=== PATIENT | female | born 1960 | race Caucasian/White ===

== ENCOUNTER 2017-04-02 10:38 | Day surgery (SDC) | payer MEDICARE, MEDICAID ==
[~2017-04-02] VITALS: Ht 165.1 cm; Wt 99.8 kg
[~2017-04-02 10:38] MED LIST: ALBUTEROL-200 PUFFS/ IH; ALBUTEROL2.5 MG/NEB IN; AMARYL1 MG PO; CEFDINIR300 M1 PO; CELEXA40 MG PO; DICLOFENAC 50MG50 MG PO; DIFLUCAN100 M1 PO; DULOXETINE60 MG PO; ETODOLAC400 MG PO; FAMOTIDINE 20MG20 MG PO; GABAPENTIN300 MG PO; IMDUR ER30 MG PO; LANTUS INS100 UNITS/ SC; LEVOTHYROXIN0.075 M1 PO; LEVOTHYROXINE0.05 M2 PO; LISINOPRIL HCTZ1 TAB PO; LISINOPRIL/HCTZ1 TA3 PO; LORATADINE 10MG10 M1 PO; LYRICA75 MG PO; MECLIZINE HCL25 M1 PO; MELOXICAM7.5 MG PO; METOPROLOL SUCC50 M1 PO; METOPROLOL50 MG PO; MOBIC15 MG PO; NICOTINE PATCH;21 MG TD; OMEPRAZOLE20 MG PO; OMEPRAZOLE40 MG PO; PHENERGAN 25MG.25 M1 PO; PRAVASTATIN 40M40 MG PO; PRAVASTATIN20 MG PO; PROAIR HFA0.09 MG/AC IH; TIZANIDINE HCL 44 MG NG; TRAMADOL 50MG T50 M1 PO; VIIBRYD20 MG PO; XANAX 0.5MG TA0.5 MG PO; XANAX 1MG TABLET1 MG PO; ZOFRAN4 MG PO; ZYRTEC10 M3 PO; Zithromax500 MG PO
--- NOTE | 2017-04-02 10:58 | Emergency Room Report ---
History of Present Illness Time Seen by 105Sung Presenting Problem in Triage Pt arrived:Walked Presenting Problem:PT STATES THAT SHE WAS EATING TENDERLOIN LAST NIGHT AROUND 2129 AND GOT A PIECE LODGED IN HER CHEST. 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 N Clinical Suspician of Infection? N Mental Status: 1 - Regular (Normal Baseline) Sepsis Risk:Low Sepsis Risk Have you (or family members/close friends) recently traveled outside the [place]? N If Yes, where/when: Have you had exposure to infectious disease within the past month? N TB? Other? Specify: Patient states that at 9:30 PM last night that she ate steak and it got stuck in her throat states she has a moderate foriegn body sensation no radiation she states she this before and had to have the obstruction removed, does not remember the gastrointestinal doctor who did it. He denies any other pain or problems. No fevers or chills no nausea or vomiting she states that she had to sleep with a rag around her mouth last night because she was continually drooling at night. States she still cannot swallow her saliva. Denies any abdominal pain ALLERGIES Coded Allergies: No Known Allergies (11/08/16) Home Medications Active Scripts Azithromycin (Zithromax) 500 MG PO DAILY #3 TAB Prov: 08/24/16 Cefdinir 300 MG PO BID #14 CAP Prov: 08/24/16 Fluconazole (Diflucan) 100 MG PO DAILY #7 TAB Prov: 08/24/16 Albuterol Sulfate (Proair Hfa) 2 PUFFS IH Q6HP PRN SHORTNESS OF BREATH #1 INH Prov: 08/24/16 Reported Medications DULOXETINE HCL (Duloxetine) 60 MG PO BID Isosorbide Mononitrate (Imdur Er) 30 MG PO QHS Metoprolol Tartrate (Metoprolol) 50 MG PO BID Levothyroxine Sodium (Levothyroxine 0.075MG) 100 MCG PO DAILY Gabapentin (Gabapentin 300MG) 600 MG PO TID Omeprazole (Omeprazole 40MG) 40 MG PO DAILY #30 LISINOPRIL/HYDROCHLOROTHIAZIDE (Lisinopril-Hctz 20-25 MG Tab) 0.5 TAB PO DAILY Loratadine (Loratadine 10MG Tablet) 10 MG PO DAILY Meloxicam (Meloxicam 7.5MG) 15 MG PO BID TIZANIDINE HCL (Tizanidine Hcl 4 Mg Tablet) 4 MG NG BID Alprazolam (Xanax 1MG) 1 MG PO TID PRAVASTATIN SODIUM (Pravastatin Sodium) 40 MG PO QHS Insulin Glargine (Lantus Insulin Vial) 30 UNITS SC DAILY History Medical History General CAD? Yes Angina: Yes ID: No Hypertension? Yes Hyperlipidemia? Yes CHF? No DVT? No PE? No COPD? Yes Asthma? Yes Anemia? No GERD? Yes Gastric ulcers? No GI Bleed? No Hernia? Yes Thyroid Problems? No Hypothyroidism? Yes CVA? No Seizures? No Diabetes? Yes Insulin Dependent: Yes Insulin Pump: No Home FSBS? Yes Renal Insuffiency? No End Stage Renal Disease? No UTI? No Stones? No GB Disease: Yes Nephritic Syndrome? No Asplenia? No Hepatitis? No Sickle Cell Disease? No Arthritis? Yes Migraines? No Cataracts? No Glaucoma? No MRSA? No HIV? No TB? No Anxiety? Yes Depression? Yes Cancer? No More? 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 Eyes: conjunctiva/corneas clear ENT: Mucous membranes moist. throat is unremarkable pt is actively spitting up mucus intermittantly Neck: No jugular venous distention. Cardiac: regular rate and rhythm Lungs: Clear to auscultation bilaterally Abdomen: Nontender, Nondistended, positive bowel sounds, no rebound : No CVA tenderness Extremities: no edema Musculoskeletal: No chest wall tenderness Skin: No rashes or lesions to exposed skin. Neurologic: Alert. No gross focal deficits Psychiatric: Normal affect (Sharif GOODMAN, Ruben) General Appearance normal appearance Respiratory Status No: respiratory distress. Cardiovascular normal exam Neurologic alert Medical Decision Making LABS/Meds/Orders Pt receiving controlled substance in ED? No Comment 1117am call out to surgery. pt still not able to swallow. 1125 anthony Anand, he states Dr. Hodge has the egd room today, and to call Naveen GOODMAN at outpatient, anthony staff 1202 pt has some inflammation r ear, complains of r ear pain states pmd usually gives antibiotics for Results/Orders Laboratory Tests 04/02/17 1048: Sodium 142, Potassium 3.6, Chloride 106, Carbon Dioxide 25, BUN 17, Creatinine 1.0, Estimated Creat Clear 95, Estimated GFR (MDRD) 57 L, Glucose 161 H, Calcium 9.3, Total Bilirubin 0.8, AST 32, ALT 41, Alkaline Phosphatase 76, Total Protein 7.8, Albumin 4.1, Globulin 3.7 H, Albumin/Globulin Ratio 1.1, WBC 10.8, RBC 4.98, Hgb 15.1, Hct 45.5, MCV 91.5, RDW 13.3, Plt Count 283, MPV 8.7, Gran % 55.3, Gran # 6.0, Lymphocytes % 34.4, Monocytes % 6.6, Eosinophils % 3.1, Basophils % 0.5, Lymphocytes # 3.7, Monocytes # 0.7, Eosinophils # 0.3, Basophils # 0.1, PUBS MCHC 33.1, MCH 30.3 Current Medication Orders Sig/Jesse Start time Last Medication Dose Route Stop Time Status Admin Ondansetron HCl 4 MG ONCE ONE 04/02 1130 DC 04/02 IV 04/02 1131 1123 Ondansetron HCl 0 .STK-MED ONE 04/02 1122 DC .ROUTE Glucagon 1 MG ONCE ONE 04/02 1100 DC 04/02 IV 04/02 1101 1100 Nitroglycerin 0.4 MG ONCE ONE 04/02 1100 DC 04/02 SL 04/02 1101 1100 Sodium Chloride 1,000 ML .Q1H1M 04/02 1100 DC 04/02 IV 04/02 1200 1059 Sodium Chloride 10 ML PRN PRN 04/02 1100 AC IV 04/03 1054 Glucagon 0 .STK-MED ONE 04/02 1057 DC .ROUTE Nitroglycerin 0 .STK-MED ONE 04/02 1057 DC SL Sodium Chloride 1,000 ML .STK-MED ONE 04/02 105 DC IV Orders Procedure Date/time Status CBC WITH AUTO DIFF 04/02 1057 Complete CHEM 12 PROFILE 04/02 105 Complete Departure Departure Time of Disposition 1201 Disposition Still a Patient Clinical Impression Primary Impression: Food impaction of esophagus Condition STABLE Prescriptions Current Visit Scripts Amoxicillin (Amoxicillin 500MG) 500 MG PO TID #30 CAP ED Critical Care Critical Care No at 1204
[2017-04-02 11:15] LABS: LYMPH # 3.7 K/mm3 (0.7-4.5); LYMPH % 34.4 % (10-50.0)
[2017-04-02 11:18] LABS: HEMOGLOBIN 15.1 g/dL (12.2-16.2)
--- OUTSIDE RECORDS SUMMARY | 2017-04-02 11:22 | External Medical Summary Rpt ---
Author Author [facility] Organization [facility] Address Unknown Phone Unavailable Care Team Providers Care Shipping Manager Name Role Phone Ryann HELMS PCP [phone] Encounter [facility] [id number] Date(s): 02/21/17 - 02/23/17 [facility] [address] [place] [id number]- [phone] Discharge Disposition: OP Self Care or Home Attending Physician: LUDMILA MATTSON MD-CAR Admitting Physician: LUDMILA MATTSON MD-CAR Referring Physician: LUDMILA MATTSON MD-CAR Reason for Visit ABNORMAL RESULT OF OTHER CARDIOVASCULAR FUNCTION STUDY Vital Signs Most recent 1 2 3 to oldest [Reference Range]: Temperature Temporal artery Source scanning (02/23/17 10:06 AM) Temperature Fahrenheit Mode (02/23/17 10:06 AM) Temperature, 96.7 Deg F Fahrenheit *LOW*(02/23/17 [96.8-99.7 10:06 AM) Deg F] Clinical 35.9 Deg C Temperature, (02/23/17 10:06 C AM) Peripheral 70 bpm (02/23/17 Pulse Rate 10:06 AM) [60-100 bpm] Heart Rate 66 bpm 70 bpm 62 bpm Monitored (02/23/17 2:00 PM) (02/23/17 1:45 PM) (02/23/17 1:30 PM) [60-100 bpm] Respiratory 17 Breaths/Min 27 Breaths/Min 18 Breaths/Min Rate [14-20 (02/23/17 2:00 PM) *HI* (02/23/17 1:30 PM) Breaths/Min] (02/23/17 1:45 PM) Blood 130/68 mmHg 125/66 mmHg 130/65 mmHg Pressure (02/23/17 2:00 PM) (02/23/17 1:45 PM) (02/23/17 1:30 PM) [90-140/60-9 0 mmHg] Mean 89 mmHg 86 mmHg 87 mmHg Arterial (02/23/17 2:00 PM) (02/23/17 1:45 PM) (02/23/17 1:30 PM) Pressure (MAP) Mean 93 90 89 Arterial (02/23/17 2:00 PM) (02/23/17 1:45 PM) (02/23/17 1:30 PM) Pressure (MAP)-BMDI Systolic 127 mmHg (02/23/17 Blood 10:06 AM) Pressure, RUE [90-140 mmHg] Diastolic 71 mmHg Blood *LOW*(02/23/17 Pressure, 10:06 AM) RUE [90-140 mmHg] Systolic 127 mmHg (02/23/17 Blood 10:06 AM) Pressure, LUE [90-140 mmHg] Diastolic 62 mmHg Blood *LOW*(02/23/17 Pressure, 10:06 AM) LUE [90-140 mmHg] Oxygen 97 % 95 % 95 % Saturation (02/23/17 2:00 PM) (02/23/17 1:45 PM) (02/23/17 1:30 PM) [94-100 %] Height Stated (02/23/17 Source 10:06 AM) Height Entry [place] (02/23/17 Format 10:06 AM) Height/Lengt 5 ft (02/23/17 h, NIGERIAN 10:06 AM) (ft) Height/Lengt 5 Inch (02/23/17 h NIGERIAN 10:06 AM) CLINICALHEIG 165.1 cm (02/23/17 HT 10:06 AM) Weight Standing scale Source (02/23/17 10:06 AM) Weight Entry [place] (02/23/17 Format 10:06 AM) Weight 222 lb (02/23/17 Japanese lb 10:06 AM) CLINICALWEIG 100.91 kg HT (02/23/17 10:06 AM) Body Surface 2.07 m2 (02/23/17 Area (BSA) 10:06 AM) Body Mass 37 kg/m2 Index *HI*(02/23/17 [19.0-24.0 10:06 AM) kg/m2] [place] Body 57 kg (02/23/17 Weight 10:06 AM) Problem List Condition Effective Status Health Informant Dates Status Arthritis(Co Active patient nfirmed) Asthma(Confi Active patient rmed) Concussion(C Active patient onfirmed) COPD(Confirm Active patient ed) Diabetes Active patient mellitus type II(Confirmed ) Hemorrhoids( Active patient Confirmed) Hypertension Active patient (Confirmed) Impaired Active patient vision(Confi rmed) Pneumonia(Co Active patient nfirmed) Sinusitis(Co Active patient nfirmed) Sleep Active patient apnea(Confir med) Syncope(Conf Active patient irmed) Thyroid Active patient disease(Conf irmed) Allergies, Adverse Reactions, Alerts No Known Allergies Medications albuterol-ipratropium (albuterol-ipratropium 2.5 mg-0.5 mg/3 mL inhalation solution)3 Milliliter(s) Nebulized Inhalation Four Times A Day as needed as needed for shortness of breath or wheezing. ALPRAZolam (Xanax) 1 Milligram(s) Oral Three Times A Day. aspirin 81 Milligram(s) Oral At Bedtime. fenofibrate 145 Milligram(s) Oral Every Day. furosemide 40 Milligram(s) Oral Every Day. gabapentin 600 Milligram(s) Oral Three Times A Day. insulin glargine (Lantus 100 units/mL subcutaneous solution)30 Unit(s) SubCutaneous At Bedtime. isosorbide mononitrate (isosorbide mononitrate 60 mg oral tablet, extended release)1 Tablet(s) Oral Every Morning. levothyroxine 100 Microgram(s) Oral Every Day. loratadine 10 Milligram(s) Oral Every Day. metoprolol (Metoprolol Succinate ER) 50 Milligram(s) Oral Every Day. naproxen 500 Milligram(s) Oral Two Times A Day. nitroglycerin (Nitrostat 0.4 mg sublingual tablet)1 Tablet(s) SubLINgual every 5 minutes as needed as needed for chest pain. omeprazole 40 Milligram(s) Oral Every Day. PRAVAstatin 40 Milligram(s) Oral At Bedtime. tiZANidine 4 Milligram(s) Oral Three Times A Day. Results GENERAL CHEMISTRY Most recent 1 to oldest [Reference Range]: eGFR 62 mL/min/1.73m2 [>=60 (02/23/17 10:08 AM) mL/min/1.73m 2] eGFR 51 mL/min/1.73m2 NonAfrican *LOW* [>=60 (02/23/17 10:08 AM) mL/min/1.73m 2] Sodium POC 143 mmol/L [138-146 (02/23/17 10:08 AM) mmol/L] Potassium 3.9 mmol/L POC [3.5-4.9 (02/23/17 10:08 AM) mmol/L] Chloride POC 103 mmol/L [98-109 (02/23/17 10:08 AM) mmol/L] CO2 POC 26.0 mmol/L [24.0-29.0 (02/23/17 10:08 AM) mmol/L] Anion Gap 19.0 mmol/L POC (02/23/17 10:08 AM) [10.0-20.0 mmol/L] Glucose POC 130 mg/dL [70-105 *HI* mg/dL] (02/23/17 10:08 AM) BUN POC 19 mg/dL [8-26 mg/dL] (02/23/17 10:08 AM) Creatinine 1.1 mg/dL POC [0.6-1.3 (02/23/17 10:08 AM) mg/dL] Ca Ioniz POC 1.23 mmol/L [1.12-1.32 (02/23/17 10:08 AM) mmol/L] HEMATOLOGY Most recent 1 to oldest [Reference Range]: Platelet 282 K/uL Count (02/23/17 9:52 AM) [163-369 K/uL] Hematocrit 43.0 % POC (02/23/17 10:08 AM) [38.0-51.0 %] Hemoglobin 14.6 Gram/dL POC (02/23/17 10:08 AM) [12.0-17.0 Gram/dL] Immunizations No data available for this section Procedures Procedure Date Related Body Site Diagnosis hemorrhoidectomy Social History Social History Response Type Smoking Status Current every day smoker; Tobacco Use Within Last Twelve Months Cigarettes; Years of Tobacco Use 42; Packs/Tins Daily 1; Assessment and Plan No data available for this section Hospital Discharge Instructions Patient EducationAngiogram, Care After Conscious Sedation, Adult, Care After Radial Site Care
--- OUTSIDE RECORDS SUMMARY | 2017-04-02 11:22 | External Medical Summary Rpt ---
Author Author [facility] Organization [facility] Address Unknown Phone Unavailable Care Team Providers Care Mathematics Academic Chair Name Role Phone Ryann HELMS PCP [phone] [facility] [id number] Date(s): 02/21/17 - 02/23/17 [facility] [address] [place] [id number]- Discharge Disposition: OP Self Care or Home [...] Stated (02/23/17 Source 10:06 AM) Height Entry [place] (02/23/17 Format 10:06 AM) Height/Lengt 5 ft (02/23/17 h, TRIST[place]IAN 10:06 AM) (ft) Height/Lengt 5 Inch (02/23/17 h TRISTAN[place] 10:06 AM) CLINICALHEIG 165.1 cm (02/23/17 HT 10:06 AM) Weight Standing scale Source (02/23/17 10:06 AM) Weight Entry [place] (02/23/17 Format 10:06 AM) Weight 222 lb (02/23/17 Bulgarian lb 10:06 AM) CLINICALWEIG 100.91 kg HT (02/23/17 10:06 AM) Body Surface 2.07 m2 (02/23/17 Area (BSA) 10:06 AM) Body Mass 37 kg/m2 Index *HI*(02/23/17 [19.0-24.0 10:06 AM) kg/m2] [place] Body 57 kg (02/23/17 Weight 10:06 AM) [...]
--- OUTSIDE RECORDS SUMMARY | 2017-04-02 11:29 | External Medical Summary Rpt | CCD ---
Author Author , [facility] Organization [facility] Address Unknown Phone Care Team Providers Care Reservation Agent Name Role Phone AHMED ADN, AHMED ADN Unavailable Unavailable AHMED ADN, AHMED ADN Unavailable Unavailable ALLRAN JR JIL, ALLRAN Unavailable Unavailable JR JIL [facility], Unavailable Unavailable [facility] JULIUS CAR, Unavailable Unavailable JULIUS CAR LAURA HENDRICKSON MD, PSC, Unavailable Unavailable LAURA HENDRICKSON MD, PSC [facility], Unavailable Unavailable [facility], Unavailable Unavailable [facility] BEINEKE, BEINEKE Unavailable Unavailable BEINEKE KURT BEINEKE Unavailable Unavailable KURT SANTIAGO, BARBER Unavailable Unavailable NAYANA KOVACS Unavailable Unavailable [facility] Unavailable [facility]available [facility], [facility] ARGUETA, ARGUETA Unavailable Unavailable ARGUETA ALL, ARGUETA ALL Unavailable Unavailable [facility] Unavailable Unavailable HOSPITAL, [facility] HAMMOND CAR, HAMMOND Unavailable Unavailable CAR BUTROS JONNY, BUTROS Unavailable Unavailable JONNY BUX ANJ, BUX ANJ Unavailable Unavailable [facility] & Unavailable Unavailable [facility], [facility] & Unavailable Unavailable DUBILIER, [facility] DUBILIER GONSALES, GONSALES Unavailable Unavailable GONSALES JACK, GONSALES Unavailable Unavailable JACK [facility], Unavailable Unavailable [facility] HELMS, HELMS Unavailable Unavailable HELMS GUERRERO, HELMS GUERRERO Unavailable Unavailable HELMS GUERRERO, HELMS GUERRERO Unavailable Unavailable SHASHA, SHASHA Unavailable Unavailable SHASHA OMAR, Unavailable Unavailable SHASHA OMAR [facility] Unavailable Unavailable [facility], [facility] DAVINA LAYNE, Unavailable Unavailable DAVINA LAYNE, Unavailable Unavailable DAVINA CHAVEZ ZBIGNIEW, KATHY ZBIGNIEW Unavailable Unavailable [facility], [facility]available Unavailable [facility], Unavailable Unavailable [facility] JR RAQUEL LUNA, Unavailable Unavailable LUNA, JR DOBSONZ JESÚSY ENOCH, ELIOTPADMINIPeri Unavailable Unavailable ENOCH JASON, Unavailable Unavailable KENDALL JASON FOWLER, FOWLER Unavailable Unavailable JANETH CAMPBELL, Unavailable Unavailable FOWLER SHANNAN DE SOUZA, Unavailable Unavailable FOWLER [facility] Unavailable Unavailable INC, [facility] Unavailable Unavailable HOSPITAL P, [facility] P [facility], Unavailable Unavailable [facility] CHRISTY, CHRISTY Unavailable Unavailable GREGG, GREGG Unavailable Unavailable GREGG NAN, GREGG Unavailable Unavailable NAN LINDA JIL, LINDA Unavailable Unavailable JIL LINDA JIL, LINDA Unavailable Unavailable JIL EHSAN LAR, EHSAN Unavailable Unavailable [facility] Unavailable Unavailable IMAGING [facility], [facility] KERN CAR, KERN CAR Unavailable Unavailable KRIMM FERMIN, KRIMM FERMIN Unavailable Unavailable [facility]available [facility], [facility] Unavailable Unavailable [facility], [facility] & Unavailable Unavailable [facility] TINY CRI, TINY CRI Unavailable Unavailable SRINIVASAN KATIA, SRINIVASAN KATIA Unavailable Unavailable DALLAS EDGAR, DALLAS Unavailable Unavailable EDGAR [facility] Unavailable Unavailable ASSOCIAT, [facility] Unavailable Unavailable CARE [facility], [facility], [facility] Unavailable Unavailable [facility] Unavailable Unavailable [facility] [place] Un[facility] [place] [facility], Unavailable Unavailable [facility] YAIR GIAN, YAIR Unavailable Unavailable GIAN YAIR GIAN, YAIR Unavailable Unavailable [facility], Unavailable Unavailable [facility] Unavailable Unavailable HEALTH, [facility] Unavailable Unavailable URGENT TREAT, [facility] Unavailable [facility]available [facility] Unavailable [facility]available [facility] GUERRERO HELMS MD Unavailable Unavailable CONSULTING SERV, GUERRERO HELMS MD CONSULTING SERV GUERRERO HELMS MD Unavailable Unavailable CONSULTING SRVGUERRERO MD CONSULTING SRV JENKINS, JENKINS Unavailable Unavailable JAYLEEN CHR, JAYLEEN CHR Unavailable Unavailable SCIFRES, SCIFRES Unavailable Unavailable [facility], Unavailable Unavailable [facility] Unavailable Unavailable EQUIPME, [facility] Unavailable Unavailable [facility]QU[facility]ME, [facility] Unavailable Unavailable EMERGENCY PH[facility], [facility] Unavailable Unavailable EMERGENCY SERVI, [facility], Unavailable Unavailable [facility], [facility]available Unavailable [facility] Unavailable Unavailable [place], [facility] Unavailable Unavailable [facility] FARIAS RAY, FARIAS Unavailable Unavailable RAY BELÉN DAILEY Unavailable Unavailable ENOCH BELÉN DAILEY Unavailable Unavailable ENOCH GARCIA NIALL, RADHA Unavailable Unavailable NIALL [facility] Unavailable [facility]available [facility] Unavailable Unavailable [facility], [facility] Unavailable Unavailable INC [facility] Unavailable Unavailable INC CHAUNCEY MOY, Unavailable Unavailable CHAUNCEY MOY [facility] Unavailable Unavailable [facility] # Unavailable Unavailable [id number], [facility] # [id number] [facility], [facility] Unavailable Unavailable [facility], [facility] Unavailable Unavailable YEASAYER CECY, Unavailable Unavailable YEASAYER CECY CHRISTO MAT, CHRISTO MAT Unavailable Unavailable Purpose Continuity of Care Document - 07-18-2007 through 2016 Problems Code Diagnosis DOS Provider Status J449 CHRONIC 03-14-[address] [facility] OBSTRUCTIVE 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 UNS EQUIPME [id number] OTHER 03-09-2017 [facility]HMA INC E039 HYPOTHYROID 02-23-2017 [facility] UNSPECIFIED E119 TYPE 2 02-23-2017 [facility] DIABETES [facility] MELL[facility] WITHOUT COMPLICATIO NS E784 OTHER 02-23-2017 [facility] HYPERLIPIDE HOSPITAL NELL G4733 OBSTRUCTIVE 02-23-2017 [facility] SLEEP [facility] APNEA ADULT PEDIATRIC I10 ESSENTIAL 02-23-2017 [facility] HYPERTENSIO N [id number] ASHD NANWALEK 02-23-2017 [facility] W/UNS ANGINA PECTORIS J439 EMPHYSEMA 02-23-2017 [facility] UNSPECIFIED HOSPITAL M1990 UNSPECIFIED 02-23-2017 [facility] OSTEOARTHRI TIS UNSPECIFIED SITE M5136 OT 02-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 M545 LOW BACK 02-15-2017 [facility] PAIN [facility]THOP[facility]EDIC S PSC N9489 OTH COND 02-14-2017 [facility]FE [facility] GEN ORGN & INC MENSTRUAL CYCL R0602 SHORTNESS 02-14-2017 [facility] R072 PRECORDIAL 02-14-2017 [facility] PA[facility] INC R0789 OTHER CHEST 02-14-2017 [facility] IM[facility] ASS R102 PELVIC AND 02-14-2017 [facility] PERINEAL MEDICAL PAIN IMAGING ASS I2510 ASHD NANWALEK 02-08-2017 [facility] CORONARY LAR & SLEEP ARTERY W/O CONSU ANGINA PECTORIS I6523 OCCLUSION & 02-08-2017 [facility] STENOSIS LAR & SLEEP BILATERAL CONSU CAROTID ARTERIES J438 OTHER 02-08-2017 [facility] EMPHYSEMA LAR & SLEEP CONSU R2243 LOC 02-08-2017 [facility] SWELLING LAR & SLEEP MASS & LUMP CONSU LOWER LIMB BILATERAL A73504 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 GROUP W/O ABNORMAL FIND Z124 ENCOUNTER 02-07-2017 [facility] SCREENING MALIG NEOPLASM CERVIX R079 CHEST PAIN 02-06-2017 [facility] H15169 PAIN IN 01-29-2017 [facility] HELMS RIGHT LEG CONSULTING SRV L24615 PAIN IN 01-29-2017 [facility] HELMS LEFT LEG CONSULTING SRV 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 E7800 PURE 01-23-2017 [facility] HELMS HYPERCHOLES TEROLEMIA CONSULTING UNSPECIFIED SRV E1165 TYPE 2 10-31-2016 [facility]ES [facility] MELLITUS SOLUTIONS [place]YCEM IA M6009 INFECTIVE 10-31-2016 [facility] MYOSITIS HEALTH MULTIPLE SOLUTIONS SITES IN R311 BENIGN 10-31-2016 [facility] ESSENTIAL [facility] MICROSCOPIC SOLUTIONS HEMATURIA IN R3129 OTHER 10-31-2016 [facility] MICROSCOPIC HEALTH HEMATURIA SOLUTIONS IN R600 LOCALIZED 10-31-2016 [facility] EDEMA HEALTH SOLUTIONS IN J52611 OTHER 10-05-2016 [facility] MUSCLE HEALTH SPASM SOLUTIONS IN H2513 AGE-RELATED 09-14-2016 [facility] BILATERAL E018 OTH 08-31-2016 [facility] IODINE-DEFI HE[facility] C REL SOLUTIONS THYROID D/O IN & ALLIED CONDS E038 OTHER 08-31-2016 [facility] SPECIFIED HAI HYPOTHYROID HOLDINGS ISM E782 MIXED 08-31-2016 [facility] HYPERLIPIDE HEALTH NELL SOLUTIONS IN J180 BRONCHOPNEU 08-31-2016 [facility] UNSPECIFIED SOLUTIONS ORGANISM IN E1141 TYPE 2 08-28-2016 [facility] DIABETES HEALTH MELLITUS SOLUTIONS W/DIAB IN MONONEUROPA THY J189 PNEUMONIA 08-23-2016 [facility] UNSPECIFIED MEDICAL ORGANISM IMAGING ASS J90 PLEURAL 08-23-2016 [facility] EFFUSION MEDICAL NOT IMAGING ASS ELSEWHERE CLASSIFIED R918 OTHER 08-23-2016 [facility] NONSPECIFIC MEDICAL ABNORMAL IMAGING ASS FINDING OF LUNG FIELD J441 CHRONIC 08-22-2016 [facility] P DZ W/EXACERBAT ION Z720 TOBACCO USE 08-22-2016 [facility] P R0902 HYPOXEMIA 08-21-2016 [facility] J0140 ACUTE 08-19-2016 [facility]ANSINUS[facility]I [facility] INC UNSPECIFIED R05 COUGH 08-19-2016 [facility] R42 DIZZINESS 08-19-2016 [facility] AND MEDICAL GIDDINESS IMAGING ASS R531 WEAKNESS 08-19-2016 [facility] I9589 OTHER 07-31-2016 [facility] HYPOTENSION HEALTH SOLUTIONS IN I340 NONRHEUMATI 07-25-2016 [facility] INSUFFICIEN CY I471 SUPRAVENTRI 07-25-2016 [facility] L2081 ATOPIC 03-14-2016 [facility] NEURODERMAT [facility] ITIS URGENT TREAT L500 ALLERGIC 03-14-2016 [facility] URTICARIA [facility] URGENT TREAT L0889 OT SPEC 02-24-2016 [facility] INFECTIONS URGENT THE SKIN & TREAT SUBQ TISSUE M6240 CONTRACTURE 01-11-2016 [facility] OF MUSCLE HAI UNSPECIFIED HOLDINGS SITE A03952 SPONDYLOSIS 01-10-2016 LAURA HENDRICKSON, W/O , PSC MYELOPATH/R ADICULOPATH Y LUMB RGN M5126 OTH 01-10-2016 LISANDRO SERNA MD, PSC RAL DISC DISPLACEMEN T LUMBAR RGN M797 FIBROMYALGI 01-10-2016 Ryann SERNA MD, PSC Y92923 PAIN IN 12-13-2015 [facility] RIGHT KNEE HAI HOLDINGS I26942 PAIN IN 12-13-2015 [facility] LEFT KNEE HAI HOLDINGS M7981 NONTRAUMATI 12-07-2015 [facility]EM[facility] OF SOFT INC TISSUE M5022 OTH CERV 10-21-2015 [facility] DISC MEDICAL DISPLACEMEN IMAGING ASS T MID-CERVICA L REGION M5403 PANNICULITI 10-21-2015 [facility] S AFFCT [facility] HOS[facility] REGIONS INC NECK & BACK CT REGION M542 CERVICALGIA 10-21-2015 [facility] M533 SACROCOCCYG 08-31-2015 [facility] EAL MEDICAL DISORDERS IMAGING ASS NEC R1032 LEFT LOWER 08-31-2015 [facility] QUADRANT MEDICAL PAIN IMAGING ASS P04933 MUSCLE 08-19-2015 [place] SPASM OF [facility] BACK URGENT TREAT T1490 INJURY 08-19-2015 [place] UNSPECIFIED [facility] URGENT TREAT M791 MYALGIA 07-26-2015 LAURA HENDRICKSON MD, PSC J028 ACUTE 07-12-2015 [place] PHARYNGITIS [facility] DUE TO URGENT OTHER SPEC TREAT ORGANISMS J101 FLU D/T OTH 07-12-2015 [place] ID FLU [facility] VIRUS OTH URGENT RESP TREAT MANIFESTATI ONS J208 ACUTE 06-21-2015 [facility] BRONCHITIS [facility] DUE TO URGENT OTHER SPEC TREAT ORGANISMS R21 RASH AND 06-21-2015 [place] OTHER [facility] NONSPECIFIC URGENT SKIN TREAT ERUPTION F72195 ACUTE 04-08-2015 [place] SUPPURATIVE [facility] OM W/O URGENT RUPT EAR TREAT DRUM LT EAR H9202 OTALGIA 04-08-2015 [facility] LEFT EAR COUNTY URGENT TREAT J302 OTHER 04-08-2015 [facility] SEASONAL [facility] ALLERGIC URGENT RHINITIS TREAT K30 FUNCTIONAL 03-23-2015 [facility] DYSPEPSIA MOUNT [facility] K310 ACUTE 03-23-2015 [facility] DILATATION MOUNT OF STOMACH JOSÉ R140 ABDOMINAL 03-23-2015 [facility] GASEOUS R935 ABN FIND DX 03-23-2015 [facility] IMAG OTH MOUNT ABD REGIONS [facility] RETROPERITO NEUM 80346 SLOW 02-22-2015 [place] TRANSIT [facility] CONSTIPATIO URGENT N TREAT 46132 DIAB W/O 02-17-2015 [place] COMP TYPE [facility] II/UNS NOT URGENT STATED TREAT UNCNTRL 93879 GENERALIZED 02-17-2015 [facility] ANXIETY [facility] DISORDER URGENT TREAT 5609 UNSPECIFIED 02-17-2015 [facility] INTESTINAL [facility] URGENT OBSTRUCTION TREAT 4610 ACUTE 01-28-2015 [facility] MAXILLARY [facility] SINUSITIS URGENT TREAT 42062 ASTHMA, 01-28-2015 [facility] UNSPECIFIED INC , UNSPECIFIED STATUS 496 CHRONIC 01-28-2015 [facility] INC OBSTRUCTION NEC 7291 UNSPECIFIED 01-28-2015 [facility] MYALGIA [facility] AND URGENT MYOSITIS TREAT 7821 RASH AND 01-28-2015 [facility] OTHER [facility] NONSPECIFIC URGENT SKIN TREAT ERUPTION 5368 DYSPEPSIA&O 01-25-2015 [facility]IOLOGY DISORDERS FUNCTION STOMACH 15262 DIVERTICULO 01-25-2015 [facility] COLON JOSÉ 54499 EFFUSION OF 01-16-2015 [facility] ANKLE AND [facility] FOOT JOINT URGENT TREAT 35570 PAIN IN 01-16-2015 [facility] JOINT, [facility] SHOULDER URGENT REGION TREAT 83903 EXTRINSIC 12-31-2014 [facility] ASTHMA WITH COUNTY STATUS URGENT ASTHMATICUS TREAT 84129 ACUT 12-28-2014 [facility] SUPPRATV [facility] OTITIS URGENT MEDIA W/O TREAT SPONT RUP EARDRUM 462 ACUTE 12-28-2014 [facility] PHARYNGITIS [facility] URGENT TREAT 01088 ABDOMINAL 12-18-2014 [facility] PAIN, MEDICAL UNSPECIFIED IMAGING ASS SITE 4400 ATHEROSCLER 12-15-2014 [facility] OSIS OF [facility] AORTA URGENT TREAT 5589 OTH&UNSPEC 12-14-2014 [facility] NONINFECTIO MEM HOSP US INC GASTROENTER ITIS&COLITI S 64247 NAUSEA WITH 12-14-2014 [facility] VOMITING MEDICAL IMAGING ASS 67485 NAUSEA 12-14-2014 [facility] ALONE [facility] IM[facility] ASS 14124 ABDOMINAL 12-14-2014 [facility] PAIN OTHER MEDICAL SPECIFIED IMAGING ASS SITE 07706 DIAB W/O 11-26-2014 [facility] TYPE I STATES [JUV] NOT MEDICAL STATED SUPPLY UNCNTRL 04729 BENIGN 11-12-2014 [facility] PAROXYSMAL [facility] POSITIONAL URGENT VERTIGO TREAT 25820 ACUT PEPTC 11-12-2014 [facility] ULCR UNS [facility] SITE W/O URGENT HEMOR TREAT PERF/OBST 7881 DYSURIA 11-12-2014 [facility] U[facility]ENT [facility]AT 4660 ACUTE 10-24-2014 [facility] BRONCHITIS [facility] URGENT TREAT 20057 WHEEZING 10-24-2014 [facility] URGENT TREAT 45358 OTOGENIC 10-19-2014 [facility] PAIN [facility] URGENT TREAT 4011 ESSENTIAL 10-19-2014 [facility] HYPERTENSIO [facility] N, BENIGN URGENT TREAT 4619 ACUTE 10-19-2014 [facility] SINUSITIS, [facility] UNSPECIFIED URGENT TREAT 7862 COUGH 10-19-2014 [facility] U[facility]ENT TREAT 9953 ALLERGY 10-19-2014 [facility] NOT URGENT ELSEWHERE TREAT CLASSIFIED 57991 OBSTRUCTIVE 09-23-2014 [facility] [employer] [facility] SLEEP APNEA 2724 OTHER AND 09-21-2014 [facility] UNSPECIFIED [facility] URGENT HYPERLIPIDE TREAT NELL 4770 ALLERGIC 09-21-2014 [facility] RHINITIS [facility] DUE TO URGENT POLLEN TREAT 18638 ACUT PEPTC 09-21-2014 [facility] UNS COUNTY SITE W/HEM URGENT W/O MENTION TREAT OBST 2851 ACUTE 09-14-2014 [facility] POSTHEMORRH [facility] AGIC ANEMIA URGENT TREAT 19581 ACUTE 09-14-2014 [facility] GASTRITIS [facility] WITHOUT URGENT MENTION OF TREAT HEMORRHAGE 05986 LEUKOCYTOSI 09-05-2014 [facility] S PHYSICIANS UNSPECIFIED GROUP 03926 ATROPHIC 09-05-2014 [facility] GASTRITIS [facility] & WITHOUT DUBILIER MENTION OF HEMORRHAGE 34109 UNS 09-05-2014 [facility] GASTRITIS&G PHYSICIANS ASTRODUODIT GROUP IS W/O MENTION HEMORR 20329 DUODENITIS 09-05-2014 [facility] WITHOUT PHYSICIANS MENTION OF GROUP HEMORRHAGE 22293 OTHER 09-05-2014 [facility] SPECIFIED MEDICAL DISORDER OF IMAGING ASS INTESTINES 5718 OTHER 09-05-2014 [facility] CHRONIC MEDICAL NONALCOHOLI IMAGING ASS C LIVER DISEASE 46307 ABDOMINAL 09-05-2014 [facility] PAIN, MEDICAL EPIGASTRIC IMAGING ASS 65409 HELICOBACTE 09-04-2014 [facility] PYLORI [facility] P 83080 UNSPECIFIED 09-04-2014 [facility] ESOPHAGITIS HOSPITAL P 87125 ACUTE 09-04-2014 [facility] WITH HOSPITAL P HEMORRHAGE 5533 DIAPHRAGMAT 09-04-2014 [facility] W/[facility] P OBSTRUCTION /GANGREN 2449 UNSPECIFIED 09-02-2014 [facility] HYPOTHYROID [facility] CLI ISM 2722 MIXED 09-02-2014 [facility] HYPERLIPIDE PRIMARY NELL CARE CLI 98397 NONSPECIFIC 09-02-2014 [facility] ABNORMAL N EMERGENCY ELECTROCARD SERVI IOGRAM 67852 OBST 08-22-2014 [facility] CHRONIC N EMERGENCY BRONCHITIS PHYS W/ACUTE BRONCHITIS 80446 CHEST PAIN 08-22-2014 [facility] [place] UNSPECIFIED RADIOLOGY 4019 UNSPECIFIED 08-21-2014 [facility] ESSENTIAL PRIMARY HYPERTENSIO CARE CLI N 38881 CORONARY 08-05-2014 [facility] CORONARY ARTERY 18730 CIRCADIAN 07-31-2014 [facility] LOZANO MD SLEEP CONSULTING DISORDER SERV UNSPECIFIED 71650 GEN 07-23-2014 [facility] OSTEOARTHRO PRIMARY SIS CARE CLI INVOLVING MULTIPLE SITES 2720 PURE 07-06-2014 [facility] MANN MD TEROLEMIA CONSULTING SERV 7295 PAIN IN 07-06-2014 [facility] FARRELL MD TISSUES OF CONSULTING LIMB SRV 7823 EDEMA 07-06-2014 [facility] HELMS MD CONSULTING SRV 38358 SHORTNESS 07-06-2014 [facility] 31777 PRECORDIAL 07-06-2014 [facility] PAIN [facility] 2723 HYPERCHYLOM 06-30-2014 [facility] ICRONEMIA [facility] 7197 DIFFICULTY 06-30-2014 [place] [facility] WALKING [facility] 94903 PAINFUL 05-26-2014 [facility] PRIMARY CARE CLI 2689 UNSPECIFIED 12-22-2011 [facility], VITAMIN D DIRECTOR SPECIAL ED[facility]ATION [place] [address] OBESITY, 12-22-2011 [facility], UNSPECIFIED [facility] [place] [facility] 41015 COR 12-22-2011 [facility] ATHEROSLERO UNSPEC TYPE VESSEL [place]/PIERCE T 5693 HEMORRHAGE 11-10-2011 [facility] OF RECTUM AND ANUS 5990 URINARY 11-10-2011 [facility] TRACT INFECTION SITE NOT SPECIFIED 7873 FLATULENCE 11-10-2011 [facility] ERUCTATION AND GAS PAIN V6709 FOLLOW-UP 08-25-2011 [facility] EXAMINATION [facility] FOLLOWING ASSOCIAT OTHER SURGERY 51737 OTHER 08-24-2011 [facility] MALAISE AND FATIGUE 2469 UNSPECIFIED 08-19-2011 [facility] DISORDER OF THYROID 51603 DIAB 08-19-2011 [facility] W/NEURO MANIFESTS TYPE II/UNS NOT UNCNTRL 6826 CELLULITIS 08-19-2011 [facility] AND ABSCESS OF LEG EXCEPT FOOT 77426 AC LEANNE 08-16-2011 LIN[facility] JIL EMBO & THROMB UNSPEC DEEP VES LOWER EXT 24350 OTHER 08-16-2011 [facility] DISEASES OF RADIOLOGY LUNG NOT ASSOCIAT ELSEWHERE CLASSIFIED 7231 CERVICALGIA 08-16-2011 [facility], [facility] [place] [facility] 87245 UNSPECIFIED 08-11-2011 [facility] ARTHROPATHY SITE UNSPECIFIED 7802 SYNCOPE AND 08-01-2011 [facility] COLLAPSE [facility] 7804 DIZZINESS 08-01-2011 [facility] 7820 DISTURBANCE 08-01-2011 HELMS GUERRERO OF SKIN SENSATION 04463 OCCLUSION&S 07-19-2011 [facility] GUERRERO TENOS CAROTID ART W/O MENTION INFARCT 12679 OTHER 07-07-2011 [facility] DISEASES OF RADIOLOGY SPLEEN ASSOCIAT 5531 UMB HERNIA 07-07-2011 [facility] WITHOUT RADIOLOGY MENTION ASSOCIAT OBSTRUCTION /GANGRENE E8889 UNSPECIFIED 07-06-2011 [facility] FALL RADIOLOGY ASSOCIAT 25435 OBSTRUCTIVE 06-26-2011 [facility] ADN CHRONIC BRONCHITIS WITH EXACERBATIO N 76113 OSTEOARTHRO 06-26-2011 [facility], SIS UNSPEC DIRECTOR SPECIAL EDUCATION WHETHER [facility] GEN/LOC HOS LOWER LEG 7202 SACROILIITI 06-26-2011 [facility], S NOT DIRECTOR SPECIAL EDUCATION ELSEWHERE [facility] CLASSIFIED HOS V571 OTHER 06-26-2011 [facility], PHYSICAL DIRECTOR SPECIAL EDUCATION THERAPY [facility] HOS 1320 PEDICULUS 05-31-2011 DAVINA SHI XI 28469 DEGEN 05-15-2011 [facility] LUMBAR/LUMB RADIOLOGY OSACRAL ASSOCIAT INTERVERTEB RAL DISC 7242 LUMBAGO 05-15-2011 [facility] 47991 OSTEOARTHRO 05-12-2011 BELÉN KENDALL S INVLV MX SITES BUT NOT SPEC GEN [id number] ENCOUNTER 05-12-2011 BELÉN KENDALL FOR THERAPEUTIC DRUG MONITORING 19117 ANAL OR 03-28-2011 [facility] RECTAL PAIN [facility] V5869 LONG-TERM 03-28-2011 [facility] (CURRENT) HOSPITAL USE OF OTHER MEDICATIONS 2113 BENIGN 03-15-2011 [facility] NEOPLASM OF HOSPITAL COLON 4556 UNSPEC 03-15-2011 [facility] WITHOUT MENTION COMPLICATIO N 5690 ANAL AND 03-15-2011 [facility] [place] [facility] POLYP 5781 BLOOD IN 02-21-2011 [facility] STOOL HOSP 63390 OTHER 02-21-2011 [facility] DYSPNEA AND HOSPITAL RESPIRATORY ABNORMALITI ES 7851 PALPITATION 01-19-2011 GUERRERO Walsh MD CONSULTING SRV 23684 SWELLING OF 01-18-2011 [facility] 30199 HYPERSOMNIA 01-13-2011 GUERRERO HELMS MD UNSPECIFIED CONSULTING SRV 93910 OTHER CHEST 01-13-2011 GUERRERO SIMPSON MD CONSULTING SRV Allergies, Adverse Reactions, Alerts Type Allergy to substance Adverse Reaction to Substance Substance Reaction Severity NO KNOWN ALLERGIES Unknown Unknown Clinical Alert Notifications Alert Asthma: no influenza vaccine in the last 365 days Diabetes: no A1C in the last 6 months Diabetes: no influenza vaccine in the last 365 days Medications Na ND Rx Da Fi Fi Am Da Di Ph RX Ph St me C No te ll ll ou ys ag ar # ys at rm s nt no ma ic us Or Da si cy ia de te s n re d ON 00 11 0 No DA 64 -2 NS 16 6- Lo ET 08 20 ng RO 02 13 er N 5 HC Ac L ti 4 ve MG /2 ML AL AD 00 09 10 2 60 30 SO 38 GA Ac VA 17 -2 -2 .0 PE 46 NT ti IR 30 0- 5- 00 RS 18 LE ve 69 20 20 Y 10 50 11 11 FA JA 0- 0 ID NA 50 LY R DI SK UG US AV 00 10 10 0 7. 7 SO 38 GA Ac EL 08 -2 -2 00 PE 79 NT ti OX 51 5- 5- 0 RS 81 LE ve 73 20 20 Y 40 30 11 11 FA JA 0 1 ID NA MG LY R TA DR BL UG ET 59 10 10 5 8. 15 SO 38 GA Ac 31 -2 -2 50 PE 79 NT ti 00 5- 5- 0 RS 82 LE ve 57 20 20 Y 92 11 11 FA JA 0 ID NA LY R DR UG 00 10 10 3 24 2 SO 38 GA Ac 12 -2 -2 0. PE 79 NT ti 10 5- 5- 00 RS 83 LE ve 74 20 20 0 Y 40 11 11 FA JA 4 ID NA LY R DR UG PI 00 10 10 3 30 30 SO 38 GA Ac RO 09 -2 -2 .0 PE 80 NT ti XI 30 5- 5- 00 RS 21 LE ve CA 75 20 20 Y M 60 11 11 FA JA 10 1 ID NA LY R MG DR CA UG PS UL E OX 00 10 10 0 10 2 SO 38 GA Ac YC 60 -2 -2 .0 PE 80 NT ti OD 34 5- 5- 00 RS 30 LE ve ON 99 20 20 Y E- 82 11 11 FA JA AC 8 ID NA ET LY R AM IN DR OP UG HE N 5- 32 5 DI 00 10 10 3 60 30 SO 38 AH Ac LT 37 -2 -2 .0 PE 78 ME ti IA 80 4- 4- 00 RS 78 D ve ZE 52 20 20 AD M 50 11 11 FA NA 12 1 ID N [address] TA UG BL ET AL 59 10 10 0 60 30 SO 38 AH Ac CO 76 -2 -2 .0 PE 78 ME ti AZ 23 4- 4- 00 RS 77 D ve OL 72 20 20 AD AM 10 11 11 FA NA 1 3 ID N LY MG DR ILYA HORNE BL ET NE 61 10 10 0 10 7 SO 38 AH Ac OM 31 -1 -1 .0 PE 68 ME ti YC 40 2- 2- 00 RS 11 D ve IN 64 20 20 AD -P 61 11 11 FA NA OL 0 ID N YM LY YX IN DR Primitivo HORNE C EA R SO LN OX 00 10 10 0 20 3 SO 38 KE Ac YC 60 -1 -1 .0 PE 68 AR ti OD 34 2- 2- 00 RS 12 NS ve ON 99 20 20 E- 82 11 11 FA LA AC 8 ID RI ET LY EN AM D IN DR CRANE HE N 5- 32 5 OS 65 09 09 0 32 1 SO 38 KE Ac MO 64 -2 -2 .0 PE 50 AR ti CO 90 3- 3- 00 RS 06 NS ve EP 70 20 20 14 11 11 FA LA TA 1 ID RI BL LY EN ET D DR HORNE 00 09 09 0 40 5 SO 38 GA Ac 59 -2 -2 .0 PE 50 NT ti 10 3- 3- 00 RS 12 LE ve 34 20 20 Y 90 11 11 FA JA 5 ID NA LY R UG AD 00 09 09 2 60 30 SO 38 GA Ac VA 17 -2 -2 .0 PE 46 NT ti IR 30 0- 0- 00 RS 18 LE ve 69 20 20 Y 10 50 11 11 FA JA 0- 0 ID NA 50 LY R DI SK UG US 00 09 09 4 30 30 SO 38 GA Ac 14 -1 -1 .0 PE 44 NT ti 31 9- 9- 00 RS 76 LE ve 25 20 20 Y 61 11 11 FA JA 0 ID NA LY R DR UG AL 59 09 09 0 60 30 SO 38 GA Ac CO 76 -1 -1 .0 PE 44 NT ti AZ 23 9- 9- 00 RS 74 LE ve OL 72 20 20 Y AM 10 11 11 FA JA 1 3 ID NA LY R MG DR CARABALLO UG BL ET PI 00 08 09 5 30 30 WA 72 GA Ac RO 09 -0 -1 .0 L- 57 NT ti XI 30 5- 0- 00 MA 81 LE ve CA 75 20 20 RT 6 Y M 60 11 11 JA 10 1 PH NA AR R MG MA CY CA # PS UL 10 E 11 40 LO 00 08 09 5 30 30 WA 88 GA Ac RA 78 -0 -1 .0 L- 30 NT ti TA 15 5- 0- 00 MA 89 LE ve DI 07 20 20 RT 7 Y NE 70 11 11 JA 1 PH NA 10 AR R MA MG CY # TA BL 10 ET 11 40 HY 23 06 09 2 15 30 WA [address] 15 -0 -1 .0 L- 47 ME ti OC 50 3- 0- 00 MA 86 D ve HL 04 20 20 RT 2 AD OR 71 11 11 NA OT 0 PH N HI AR AZ MA ID CY E # 25 10 MG 11 40 TA B CO 64 09 09 2 30 7 SO 38 GA Ac OC 98 -0 -0 .0 PE 33 NT ti TO 00 6- 6- 00 RS 95 LE ve ZO 30 20 20 Y NE 13 11 11 FA JA -H 0 ID NA C LY R 2. 5% DR UG CR EA M 00 09 09 0 15 5 SO 38 GA Ac 14 -0 -0 .0 PE 34 NT ti 31 6- 6- 00 RS 02 LE ve 47 20 20 Y 70 11 11 FA JA 1 ID NA LY R DR UG 00 09 09 0 40 10 SO 38 GA Ac 07 -0 -0 .0 PE 34 NT ti 46 6- 6- 00 RS 01 LE ve 30 20 20 Y 41 11 11 FA JA 3 ID NA LY R DR UG CE 68 09 09 0 40 10 SO 38 GA Ac PH 18 -0 -0 .0 PE 34 NT ti AL 00 6- 6- 00 RS 00 LE ve EX 12 20 20 Y IN 20 11 11 FA JA 2 ID NA 50 LY R [address] UG CA PS UL E AL 59 09 09 0 60 30 SO 38 GA Ac CO 76 -0 -0 .0 PE 33 NT ti AZ 23 6- 6- 00 RS 99 LE ve OL 72 20 20 Y AM 00 11 11 FA JA 3 ID NA 0. LY R [address] UG TA BL ET FL 00 09 09 2 16 30 SO 38 GA Ac UT 05 -0 -0 .0 PE 33 NT ti IC 43 6- 6- 00 RS 98 LE ve 27 20 20 Y ON 09 11 11 FA JA E 9 ID NA CO LY R OP DR 50 UG MC G SP RA Y 59 09 09 2 8. 15 SO 38 GA Ac 31 -0 -0 50 PE 33 NT ti 00 6- 6- 0 RS 96 LE ve 57 20 20 Y 92 11 11 FA JA 0 ID NA LY R DR COLEEN DI 00 08 08 1 60 30 SO 38 GA Ac LT 37 -2 -2 .0 PE 25 NT ti IA 80 6- 6- 00 RS 68 LE ve ZE 52 20 20 Y M 50 11 11 FA JA 12 1 ID NA [address] ILYA UG BL ET LE 00 08 08 6 30 30 SO 38 CO Ac VO 52 -1 -1 .0 PE 16 MB ti TH 71 8- 8- 00 RS 96 S ve YR 34 20 20 PA OX 11 11 11 FA ME IN 0 ID LA E LY A 25 DR ESTIVEN UG G TA BL ET AL 00 08 08 0 60 30 WA 44 GA Ac CO 37 -0 -0 .0 L- 95 NT ti AZ 84 5- 5- 00 MA 46 LE ve OL 00 20 20 RT 0 Y AM 50 11 11 JA 1 1 PH NA AR R MG MA CY TA # BL ET 10 11 40 HY 54 08 08 5 30 30 [place] [address] 45 -0 -0 .0 L- 57 NT ti OC 80 5- 5- 00 MA 81 LE ve HL 93 20 20 RT 5 Y OR 01 11 11 JA OT 0 PH NA HI AR R AZ MA ID CY E # 25 10 MG 11 40 TA B PI 00 08 08 5 30 30 WA 72 GA Ac RO 09 -0 -0 .0 L- 57 NT ti XI 30 5- 5- 00 MA 81 LE ve CA 75 20 20 RT 6 Y M 60 11 11 JA 10 1 PH NA AR R MG MA CY CA # PS UL 10 E 11 40 LO 00 08 08 5 30 30 WA 88 GA Ac RA 78 -0 -0 .0 L- 30 NT ti TA 15 5- 5- 00 MA 89 LE ve DI 07 20 20 RT 7 Y NE 70 11 11 JA 1 PH NA 10 AR R MA MG CY # TA BL 10 ET 11 40 AC 00 02 04 01 20 5 SO 27 No Ac ET 40 -1 -0 .0 PE 61 t ti AM 60 4- 7- 00 RS 36 Av ve IN 48 20 20 ai OP 41 08 08 FA la HE 0 ID bl N- LY e CO D DR #3 UG TA BL ET 60 02 03 00 24 12 SO 27 No Ac 25 -1 -2 0. PE 61 t ti 80 4- 6- 00 RS 34 Av ve 23 20 20 0 ai 91 08 08 FA la 6 ID bl LY e DR UG CI 55 02 03 00 20 10 SO 27 No Ac CO 11 -1 -2 .0 PE 61 t ti OF 10 4- 6- 00 RS 33 Av ve LO 12 20 20 ai XA 70 08 08 FA la CI 1 ID bl N LY e HC L DR 50 UG 0 MG TA B AC 00 02 03 00 20 5 SO 27 No Ac ET 40 -1 -2 .0 PE 61 t ti AM 60 4- 6- 00 RS 36 Av ve IN 48 20 20 ai OP 41 08 08 FA la HE 0 ID bl N- LY e CO D DR #3 UG TA BL ET Vital Signs 04-29-2013 10:47 Name Value Interpretat Reference Comment ion Range BP 69 mm[Hg] Diastolic BP Systolic 132 mm[Hg] Heart 64 /min Rate/Pulse O2% 96 % Respiratory 20 /min Rate 04-29-2013 09:40 Name Value Interpretat Reference Comment ion Range BP 78 mm[Hg] Diastolic BP Systolic 146 mm[Hg] Heart 72 /min Rate/Pulse O2% 96 % Respiratory 20 /min Rate Results Labs Lab Lab Date Result Refere Interp Status Commen Order Detail nces retati t Range on Urinalysis dipstick W Reflex Microscopic panel in Urine (11-08-2016 17:50) Bacteri 2+ O complet a 017 ed [Presen 17:50 ce] in Urine sedimen t by Light microsc opy Mucus 1+ OCC complet [Presen 017 ed ce] in 17:50 Urine sedimen t by Light microsc opy Erythro OCC 0 complet cytes 017 ed [Presen 17:50 ce] in Urine sedimen t by Light microsc opy Epithel 5-10 0#/hp complet ial 017 f - ed cells.s 17:50 5#/hp quamous f [Presen ce] in Urine sedimen t by Microsc opy high power field Urinalysis dipstick W Reflex Microscopic panel in Urine (11-08-2016 17:50) Appeara CLEAR CLEAR complet nce of 017 ed Urine 17:50 Bilirub NEGATIV NEG complet in 017 E ed [Presen 17:50 ce] in Urine by Test strip Erythro NEGATIV NEG complet cytes 017 E ed [Presen 17:50 ce] in Urine Color YELLOW YELLOW complet of 017 ed Urine 17:50 Ketones NEGATIV NEG complet 017 E ed [Presen 17:50 ce] in Urine by Automat ed test strip Mucus NEGATIV NEG complet [Presen 017 E ed ce] in 17:50 Urine sedimen t by Light microsc opy Nitrite NEGATIV NEG complet 017 E ed [Presen 17:50 ce] in Urine by Test strip Urobili 0.2 NEG complet nogen 017 ed [Presen 17:50 ce] in Urine by Test strip Procedures Procedure DOS Code Location Performer Comment O2 CONC 1 E1390 [facility]JIE GALAN [place] 7 HOME HOME 85%/>02 MEDICAL MEDICAL CONC AT EQUIPME EQUIPME PRSC FLW RATE ALBUTEROL J7613 MED 4 MED 4 INHAL 7 HOME INC HOME INC NON-CP PROD THRU DME U DOSE 1 MG PHRM Q0513 MED 4 MED 4 DISPENSIN 7 HOME INC HOME INC G FEE INHALATIO N RX; PER 30 DAYS IPRATROPI J7644 MED 4 MED 4 UM 7 HOME INC HOME INC BROMIDE INHAL NON-CP U DOSE PER MG CATHETER [id number] BASIC [address] [facility] METABOLIC [address] [place] [address] PANEL CALCIUM IONIZED GUIDE C1769 [facility] WIRE [address] [place] [address] INJECTION J3010 [facility] FENTANYL [address] [place] [address] CITRATE 0.1 MG BLOOD [address] HEMATOCRI T INJECTION J1644 [facility] HEPARIN [address] [place] [address] SODIUM PER 1000 UNITS INJECTION J2001 [address] LIDOCAINE HCL INTRAVENO US INFUS 10 MG CATH PLMT 09965 [facility] L HRT & [address] [place] [address] ARTS W/NJX & ANGIO IMG S&I BLOOD [address] [place] [address] [facility] TRANSVAGI 7 MEDICAL NAL IMAGING ASS ADMN SET A7003 MED 4 MED 4 SM VOL 7 HOME INC HOME INC NONFILTR PNEUMAT NEBULIZR DISPBL RADIOLOGI 88096 [place] [facility] C EXAM 7 MEDICAL CHEST 2 IMAGING VIEWS ASS FRONTAL&L ATERAL ALBUTEROL J7613 MED 4 MED 4 INHAL 7 HOME INC HOME INC NON-CP PROD THRU DME U DOSE 1 MG IPRATROPI J7644 MED 4 MED 4 UM 7 HOME INC HOME INC BROMIDE INHAL NON-CP U DOSE PER MG PHRM Q0513 MED 4 MED 4 DISPENSIN 7 HOME INC HOME INC G FEE INHALATIO N RX; PER 30 DAYS O2 CONC 1 E1390 BENJIE HARDY 7 HOME HOME 85%/>02 MEDICAL MEDICAL CONC AT EQUIPME EQUIPME PRSC FLW RATE SCR G0145 [facility] CYTOPATH 7 [facility] CERV/VAG SCR AUTO&MNL RSCR PHYS ANNUAL G0439 [facility] DRU WELLNESS 7 PHYSICIAN VST; S GROUP PERSONALI ZED PPS SUBSQT VST URNLS DIP 08944 [facility] DRU 7 PHYSICIAN STICK/TAB S GROUP LET RGNT NON-AUTO W/O MICRSCP CV STRS 79675 GU[facility] HELMS HELMS TST 7 MD XERS&/OR CONSULTIN RX CONT G SRV ECG I&R ONLY NONINVASI 17455 [facility] VE 7 [facility] EAR/PULSE HOSPITAL HOSPITAL OXIMETRY OVERNIGHT MONITOR COMPREHEN 57790 [facility] SIVE 7 [facility] PANEL CV STRS 68782 [facility] TST 7 [facility] XERS&/OR HOSPITAL HOSPITAL RX CONT ECG TRCG ONLY COLLECTIO 93047 [facility] N VENOUS 7 [facility] VENIPUNCT URE TECHNETIU A9500 [facility] M TC-99M 7 [facility] DX PER STUDY DOSE NATRIURET 10377 [facility] IC 7 [facility] BLOOD 82502 [facility] COUNT 7 [facility] AUTO&AUTO DIFRNTL WBC MYOCARDIA 84043 [facility] HELMS HELMS L SPECT 7 MULTIPLE CONSULTIN STUDIES G SRV NONINVASI 42100 [facility] HELMS HELMS VE 7 MD EAR/PULSE CONSULTIN OXIMETRY G SRV OVERNIGHT MONITOR MRI 24049 [facility] SPINAL 7 CANAL ORTHOPAED LUMBAR ICS PSC W/O CONTRAST MATERIAL DUP-SCAN 01421 [facility] HELMS WAESPE XTR VEINS 7 MD COMPLETE CONSULTIN G SRV BILATERAL STUDY ECG 50846 [facility] HELMS HELMS ROUTINE 7 MD ECG CONSULTIN W/LEAST G SRV 12 LDS W/I&R ADMN SET A7003 MED 4 MED 4 SM VOL 7 HOME INC HOME INC NONFILTR PNEUMAT NEBULIZR DISPBL ALBUTEROL J7613 MED 4 MED 4 INHAL 7 HOME INC HOME INC NON-CP PROD THRU DME U DOSE 1 MG IPRATROPI J7644 MED 4 MED 4 UM 7 HOME INC HOME INC BROMIDE INHAL NON-CP U DOSE PER MG PHRM Q0513 MED 4 MED 4 DISPENSIN 7 HOME INC HOME INC G FEE INHALATIO N RX; PER 30 DAYS TUBING A7037 US MED US MED USED WITH 7 INC INC POSITIVE AIRWAY PRESSURE DEVICE FULL FACE A7030 US MED US MED MASK 7 INC INC USED W/POS ARWAY PRESS DEVICE EA FILTER A7038 US MED US MED DISPBL 7 INC INC USED W/POS ARWAY PRESSURE DEVICE FACE MASK A7031 US MED US MED 7 INC INC INTERFACE REPLCMT FULL FACE MASK EA CONTINUOU E0601 BENJIE WALDROP S 7 HOME HOME POSITIVE MEDICAL MEDICAL AIRWAY EQUIPME EQUIPME PRESSURE DEVICE ALBUTEROL J7613 MED 4 MED 4 INHAL 7 HOME INC HOME INC NON-CP PROD THRU DME U DOSE 1 MG ADMN SET A7003 MED 4 MED 4 SM VOL 7 HOME INC HOME INC NONFILTR PNEUMAT NEBULIZR DISPBL IPRATROPI J7644 MED 4 MED 4 UM 7 HOME INC HOME INC BROMIDE INHAL NON-CP U DOSE PER MG PHRM Q0513 MED 4 MED 4 DISPENSIN 7 HOME INC HOME INC G FEE INHALATIO N RX; PER 30 DAYS CONTINUOU E0601 BENJIE WALDROP S 7 HOME HOME POSITIVE MEDICAL MEDICAL AIRWAY EQUIPME EQUIPME PRESSURE DEVICE ALBUTEROL J7613 MED 4 MED 4 INHAL 7 HOME INC HOME INC NON-CP PROD THRU DME U DOSE 1 MG ADMN SET A7003 MED 4 MED 4 SM VOL 7 HOME INC HOME INC NONFILTR PNEUMAT NEBULIZR DISPBL PHRM Q0513 MED 4 MED 4 DISPENSIN 7 HOME INC HOME INC G FEE INHALATIO N RX; PER 30 DAYS IPRATROPI J7644 MED 4 MED 4 UM 7 HOME INC HOME INC BROMIDE INHAL NON-CP U DOSE PER MG FEDERALLY G0467 [place] [address] [employer] [facility] VISIT ESTAB PT PHRM Q0513 MED 4 MED 4 DISPENSIN 7 HOME INC HOME INC G FEE INHALATIO N RX; PER 30 DAYS FEDERALLY G0467 [place] [address] [employer] [facility] VISIT ESTAB PT IPRATROPI J7644 MED 4 MED 4 7 HOME INC HOME INC BROMIDE INHAL NON-CP U DOSE PER MG ALBUTEROL J7613 MED 4 MED 4 INHAL 7 HOME INC HOME INC NON-CP PROD THRU DME U DOSE 1 MG URNLS DIP 92731 [place] [address] HEALTH STICK/TAB SOLUTIONS LET RGNT IN AUTO W/O MICROSCOP Y FEDERALLY G0467 [place] [address] [employer] [facility] VISIT ESTAB PT PHRM Q0513 MED 4 MED 4 DISPENSIN 7 HOME INC HOME INC G FEE INHALATIO N RX; PER 30 DAYS IPRATROPI J7644 MED 4 MED 4 UM 7 HOME INC HOME INC BROMIDE INHAL NON-CP U DOSE PER MG ALBUTEROL J7613 MED 4 MED 4 INHAL 7 HOME INC HOME INC NON-CP PROD THRU DME U DOSE 1 MG ADMN SET A7005 MED 4 MED 4 W/SM VOL 7 HOME INC HOME INC NONFILTR NEBULIZR NON-DISPB L FEDERALLY G0467 [place] [address] [employer] [facility] VISIT ESTAB PT CONTINUOU E0601 BENJIE WALDROP S 7 HOME HOME POSITIVE MEDICAL MEDICAL AIRWAY EQUIPME EQUIPME PRESSURE DEVICE HUMDIFIR E0562 BENJIE WALDROP HEATED 7 HOME HOME USED MEDICAL MEDICAL W/POS EQUIPME EQUIPME ARWAY PRESSURE DEVICE FEDERALLY G0467 [place] [address] [employer] [facility] VISIT ESTAB PT DETERMINA 38064 FABRICE SCIFRIVONNE TION 7 [facility] E STATE OPH [address] [place] [address] [facility] CENTER COMPRE NEW PT 1/> VST ALBUTEROL J7613 MED 4 MED 4 INHAL 7 HOME INC HOME INC NON-CP PROD THRU DME U DOSE 1 MG IPRATROPI J7644 MED 4 MED 4 UM 7 HOME INC HOME INC BROMIDE INHAL NON-CP U DOSE PER MG PHRM Q0513 MED 4 MED 4 DISPENSIN 7 HOME INC HOME INC G FEE INHALATIO N RX; PER 30 DAYS TUBING A7037 US MED US MED USED WITH 7 INC INC POSITIVE AIRWAY PRESSURE DEVICE FILTER A7038 US MED US MED DISPBL 7 INC INC USED W/POS ARWAY PRESSURE DEVICE FILTER A7039 US MED US MED NON 7 INC INC DISPBL USED W/POS ARWAY PRESS DEVICE FULL FACE A7030 US MED US MED MASK 7 INC INC USED W/POS ARWAY PRESS DEVICE EA FACE MASK A7031 US MED US MED 7 INC INC INTERFACE REPLCMT FULL FACE MASK EA HEADGEAR A7035 US MED US MED USED 7 INC INC W/POSITIV E AIRWAY PRESSURE DEVICE COLLECTIO 10281 [facility] VENOUS 7 [employer] [place] [address] LAB DECLAN LAB DECLAN THYROID 7 [facility] STIMULATI [facility] NG HORMONE TSH COMPREHEN 37072 LAB DECLAN LAB DECLAN SIVE 7 [facility] METABOLIC [facility] PANEL HEMOGLOBI 10345 LAB DECLAN LAB DECLAN N 7 [facility] GLYCOSYLA [facility] SAE A1C LIPID 84294 LAB DECLAN LAB DECLAN PANEL 7 [facility] FEDERALLY G0467 [place] [address] [employer] [facility] VISIT ESTAB PT BLOOD 45611 LAB DECLAN LAB DECLAN COUNT 7 [facility] COMPLETE [facility] AUTO&AUTO DIFRNTL WBC FEDERALLY G[address] [employer] [facility] VISIT ESTAB PT CT THORAX 37125 [place] [facility] 7 MEDICAL W/CONTRAS IMAGING T ASS MATERIAL RADIOLOGI 64212 [place] [facility] C EXAM 7 MEDICAL CHEST 2 IMAGING VIEWS ASS FRONTAL&L ATERAL ECG 34291 EMMY KRAUS ROUTINE 7 [facility] W/LEAST P 12 LDS I&R ONLY RADIOLOGI 05823 [facility] C EXAM 7 MEDICAL CHEST 2 IMAGING VIEWS ASS FRONTAL&L ATERAL RADIOLOGI 62552 [facility] C EXAM 7 MEDICAL CHEST 2 IMAGING VIEWS ASS FRONTAL&[place] [address] [facility] HEAD/BRAI 7 MEDICAL N W/O IMAGING CONTRAST ASS MATERIAL ADMN SET A7003 MED 4 MED 4 SM VOL 7 HOME INC HOME INC NONFILTR PNEUMAT NEBULIZR DISPBL ALBUTEROL J7613 MED 4 MED 4 INHAL 7 HOME INC HOME INC NON-CP PROD THRU DME U DOSE 1 MG PHRM Q0513 MED 4 MED 4 DISPENSIN 7 HOME INC HOME INC G FEE INHALATIO N RX; PER 30 DAYS IPRATROPI J7644 MED 4 MED 4 UM 7 HOME INC HOME INC BROMIDE INHAL NON-CP U DOSE PER MG NEEDLE 53895 EMMY BOOTH EMG EA 7 [facility] EXTREMTY INC INC W/PARASPI NL AREA COMPLETE NERVE 28122 EMMY BOOTH CONDUCTIO 7 [facility] N STUDIES INC INC 3-4 STUDIES FEDERALLY G[address] [employer] [facility] VISIT ESTAB PT MYOCARDIA 23445 GAMAL YEUNG L SPECT 7 [facility] STUDIES CV STRS 10556 [facility] TST 7 [facility] XERS&/OR HOSPITAL HOSPITAL RX CONT ECG TRCG ONLY TECHNETIU A9500 GAMAL YEUNG M TC-99M 7 [facility] DX PER STUDY DOSE NONINVASI 33124 [facility] VE 7 [facility] EAR/PULSE HOSPITAL HOSPITAL OXIMETRY OVERNIGHT MONITOR CV STRS 15674 GUERRERO SCOOTER CHURCH TST 7 MD XERS&/OR CONSULTIN RX CONT G SRV ECG I&R ONLY ECHO 47581 GUERRERO HELMS HELMS TTHRC R-T 7 MD 2D CONSULTIN W/WOM-MOD G SRV E COMPL SPEC&COLR D ECG 68397 GUERRERO HELMS RANJIT ROUTINE 7 MD ECG CONSULTIN W/LEAST G SRV 12 LDS W/I&R ADMN SET A7003 MED 4 MED 4 SM VOL 6 HOME INC HOME INC NONFILTR PNEUMAT NEBULIZR DISPBL ALBUTEROL J7613 MED 4 MED 4 INHAL 6 HOME INC HOME INC NON-CP PROD THRU DME U DOSE 1 MG PHRM Q0513 MED 4 MED 4 DISPENSIN 6 HOME INC HOME INC G FEE INHALATIO N RX; PER 30 DAYS IPRATROPI J7644 MED 4 MED 4 UM 6 HOME INC HOME INC BROMIDE INHAL NON-CP U DOSE PER MG IPRATROPI J7644 MED 4 MED 4 UM 6 HOME INC HOME INC BROMIDE INHAL NON-CP U DOSE PER MG PHRM Q0513 MED 4 MED 4 DISPENSIN 6 HOME INC HOME INC G FEE INHALATIO N RX; PER 30 DAYS ALBUTEROL J7613 MED 4 MED 4 INHAL 6 HOME INC HOME INC NON-CP PROD THRU DME U DOSE 1 MG ALBUTEROL J7613 MED 4 MED 4 INHAL 6 HOME INC HOME INC NON-CP PROD THRU DME U DOSE 1 MG ADMN SET A7003 MED 4 MED 4 SM VOL 6 HOME INC HOME INC NONFILTR PNEUMAT NEBULIZR DISPBL PHRM Q0513 MED 4 MED 4 DISPENSIN 6 HOME INC HOME INC G FEE INHALATIO N RX; PER 30 DAYS IPRATROPI J7644 MED 4 MED 4 UM 6 HOME INC HOME INC BROMIDE INHAL NON-CP U DOSE PER MG IPRATROPI J7644 MED 4 MED 4 UM 6 HOME INC HOME INC BROMIDE INHAL NON-CP U DOSE PER MG PHRM Q0513 MED 4 MED 4 DISPENSIN 6 HOME INC HOME INC G FEE INHALATIO N RX; PER 30 DAYS ALBUTEROL J7613 MED 4 MED 4 INHAL 6 HOME INC HOME INC NON-CP PROD THRU DME U DOSE 1 MG LANCETS A4259 [facility] PER BOX 6 STATES [place] 100 MEDICAL MEDICAL SUPPLY SUPPLY BLD GLU A4253 [facility] TEST/REAG 6 STATES STATES T STRIPS MEDICAL MEDICAL HOME BLD SUPPLY SUPPLY GLU SUN-50 IPRATROPI J7644 MED 4 MED 4 UM 6 HOME INC HOME INC BROMIDE INHAL NON-CP U DOSE PER MG PHRM Q0513 MED 4 MED 4 DISPENSIN 6 HOME INC HOME INC G FEE INHALATIO N RX; PER 30 DAYS ALBUTEROL J7613 MED 4 MED 4 INHAL 6 HOME INC HOME INC NON-CP PROD THRU DME U DOSE 1 MG ADMN SET A7005 MED 4 MED 4 W/SM VOL 6 HOME INC HOME INC NONFIL[place] [address] LAB DECLAN LAB DECLAN MAGNESIUM 6 [facility] [facility] [facility] POTASSIUM 61986 LAB DECLAN LAB DECLAN SERUM 6 [facility] PLASMA/WH [facility] OLE BLOOD ADMN SET A7003 MED 4 MED 4 SM VOL 6 HOME INC HOME INC NONFILTR PNEUMAT NEBULIZR DISPBL ALBUTEROL J7613 MED 4 MED 4 INHAL 6 HOME INC HOME INC NON-CP PROD THRU DME U DOSE 1 MG PHRM Q0513 MED 4 MED 4 DISPENSIN 6 HOME INC HOME INC G FEE INHALATIO N RX; PER 30 DAYS IPRATROPI J7644 MED 4 MED 4 UM 6 HOME INC HOME INC BROMIDE INHAL NON-CP U DOSE PER MG NEBULIZER E0570 MED 4 MED 4 WITH 6 HOME INC HOME INC COMPRESSO R NASL A7034 BENJIE WALDROP INTRFCE 6 HOME HOME POS ARWAY MEDICAL MEDICAL PRSS EQUIPME EQUIPME DEVC W/WO HEAD STRAP FULL FACE A7030 US MED US MED MASK 6 INC INC USED W/POS ARWAY PRESS DEVICE EA FILTER A7038 US MED US MED DISPBL 6 INC INC USED W/POS ARWAY PRESSURE DEVICE FACE MASK A7031 US MED US MED 6 INC INC INTERFACE REPLCMT FULL FACE MASK EA TUBING A7037 US MED US MED USED WITH 6 INC INC POSITIVE AIRWAY PRESSURE DEVICE RHEUMATOI 44387 LAB DECLAN LAB DECLAN D FACTOR 6 [facility] QUANTITAT [facility] SATHISH COMPREHEN 66755 LAB DECLAN LAB DECLAN SIVE 6 [facility] METABOLIC [facility] PANEL EXTRACTAB 24471 LAB DECLAN LAB DECLAN LE 6 [facility] NUCLEAR [facility] ANTIGEN ANTIBODY ANY METHOD ALBUTEROL J7613 MED 4 MED 4 INHAL 6 HOME INC HOME INC NON-CP PROD THRU DME U DOSE 1 MG IPRATROPI J7644 MED 4 MED 4 UM 6 HOME INC HOME INC BROMIDE INHAL NON-CP U DOSE PER MG PHRM Q0513 MED 4 MED 4 DISPENSIN 6 HOME INC HOME INC G FEE INHALATIO N RX; PER 30 DAYS DUP-SCAN 69235 [place] [facility] ALL XTR VEINS 6 MEDICAL IMAGING UNILATERA ASS L/LIMITED STUDY NEBULIZER E0570 MED 4 MED 4 WITH 6 HOME INC HOME INC COMPRESSO R ADMN SET A7003 MED 4 MED 4 SM VOL 6 HOME INC HOME INC NONFILTR PNEUMAT NEBULIZR DISPBL ALBUTEROL J7613 MED 4 MED 4 INHAL 6 HOME INC HOME INC NON-CP PROD THRU DME U DOSE 1 MG PHRM Q0513 MED 4 MED 4 DISPENSIN 6 HOME INC HOME INC G FEE INHALATIO N RX; PER 30 DAYS IPRATROPI J7644 MED 4 MED 4 UM 6 HOME INC HOME INC BROMIDE INHAL NON-CP U DOSE PER MG BLD GLU A4253 [facility] TEST/REAG 6 STATES STATES T STRIPS MEDICAL MEDICAL HOME BLD SUPPLY SUPPLY GLU MON-50 NORMAL A4256 [facility] STIRUM LOW AND [address] [place] [address] HIGH MEDICAL MEDICAL CALIBRATO SUPPLY SUPPLY R SOLUTION/ CHIPS LANCETS A4259 [facility] STIRUM PER BOX [address] [place] [address] MEDICAL MEDICAL SUPPLY SUPPLY NEBULIZER E0570 MED 4 MED 4 WITH 6 HOME INC HOME INC COMPRESSO R MRI 54842 EMMY BOOTH SPINAL 6 [facility] CANAL INC INC CERVICAL W/O CONTRAST MATRL 3D 37650 EMMY EMMY RENDERING 6 [facility] W/INTERP INC INC & POSTPROCE SS SUPERVISI ON MRI 32379 EMMY BOOTH SPINAL 6 [facility] CANAL INC INC LUMBAR W/O CONTRAST MATERIAL ADMN SET A7003 MED 4 MED 4 SM VOL 6 HOME INC HOME INC NONFILTR PNEUMAT NEBULIZR DISPBL ALBUTEROL J7613 MED 4 MED 4 INHAL 6 HOME INC HOME INC NON-CP PROD THRU DME U DOSE 1 MG IPRATROPI J7644 MED 4 MED 4 UM 6 HOME INC HOME INC BROMIDE INHAL NON-CP U DOSE PER MG PHRM Q0513 MED 4 MED 4 DISPENSIN 6 HOME INC HOME INC G FEE INHALATIO N RX; PER 30 DAYS NEBULIZER E0570 MED 4 MED 4 WITH 6 HOME INC HOME INC COMPRESSO R HEADGEAR A7035 US MED US MED USED 6 INC INC W/POSITIV E AIRWAY PRESSURE DEVICE FILTER A7039 US MED US MED NON 6 INC INC DISPBL USED W/POS ARWAY PRESS DEVICE FILTER A7038 US MED US MED DISPBL 6 INC INC USED W/POS ARWAY PRESSURE DEVICE FULL FACE A7030 US MED US MED MASK 6 INC INC USED W/POS ARWAY PRESS DEVICE EA FACE MASK A7031 US MED US MED 6 INC INC INTERFACE REPLCMT FULL FACE MASK EA TUBING A7037 US MED US MED USED WITH 6 INC INC POSITIVE AIRWAY PRESSURE DEVICE IPRATROPI J7644 MED 4 MED 4 UM 6 HOME INC HOME INC BROMIDE INHAL NON-CP U DOSE PER MG PHRM Q0513 MED 4 MED 4 DISPENSIN 6 HOME INC HOME INC G FEE INHALATIO N RX; PER 30 DAYS ALBUTEROL J7613 MED 4 MED 4 INHAL 6 HOME INC HOME INC NON-CP PROD THRU DME U DOSE 1 MG NEBULIZER E0570 MED 4 MED 4 WITH 6 HOME INC HOME INC COMPRESSO R COLLECTIO 29618 [facility] N VENOUS 6 [facility] BLOOD INC INC VENIPUNCT URE RADEX 07814 E[facility] SACRUM & 6 [facility] COCCYX INC INC MINIMUM 2 VIEWS CREATININ 32289 E[facility] E BLOOD 6 [place] [address] [facility] & 6 MEDICAL [facility] PELVIS IMAGING W/[place] [address] [facility] UREA 6 [facility] NITROGEN INC INC QUANTITAT SATHISH LOCM Q9967 EMM[facility] BOOTH [phone] [facility] MG/ML INC INC IODINE CONCENTRA TION PER ML REPL JACKELIN A4233 [place] ALKALINE 6 STATES STATES NOT J MEDICAL MEDICAL CELL [place] SUPPLY SUPPLY BG MON OWND PT SPRING-PO A4258 [place] WERED 6 [facility] STATES DEVICE MEDICAL MEDICAL FOR SUPPLY SUPPLY LANCET EACH LANCETS A4259 [place] PER BOX 6 STATES STATES OF [facility] MEDICAL MEDICAL SUPPLY SUPPLY NORMAL A4256 [place] LOW AND 6 [facility] STATES HIGH MEDICAL MEDICAL CALIBRATO SUPPLY SUPPLY R SOLUTION/ CHIPS BLD GLU A4253 [place] TEST/REAG 6 [facility] STATES T STRIPS MEDICAL MEDICAL HOME BLD SUPPLY SUPPLY GLU MON-50 IPRATROPI J7644 MED 4 MED 4 UM 6 HOME INC HOME INC BROMIDE INHAL NON-CP U DOSE PER MG PHRM Q0513 MED 4 MED 4 DISPENSIN 6 HOME INC HOME INC G FEE INHALATIO N RX; PER 30 DAYS ALBUTEROL J7613 MED 4 MED 4 INHAL 6 HOME INC HOME INC NON-CP PROD THRU DME U DOSE 1 MG NEBULIZER E0570 MED 4 MED 4 WITH 6 HOME INC HOME INC COMPRESSO R ADMN SET A7005 MED 4 MED 4 W/SM VOL 6 HOME INC HOME INC NONFILTR NEBULIZR NON-DISPB L ALBUTEROL J7613 MED 4 MED 4 INHAL 6 HOME INC HOME INC NON-CP PROD THRU DME U DOSE 1 MG PHRM Q0513 MED 4 MED 4 DISPENSIN 6 HOME INC HOME INC G FEE INHALATIO N RX; PER 30 DAYS IPRATROPI J7644 MED 4 MED 4 UM 6 HOME INC HOME INC BROMIDE INHAL NON-CP U DOSE PER MG NEBULIZER E0570 MED 4 MED 4 WITH 6 HOME INC HOME INC COMPRESSO R ALBUTEROL J7613 MED 4 MED 4 INHAL 6 HOME INC HOME INC NON-CP PROD THRU DME U DOSE 1 MG PHRM Q0513 MED 4 MED 4 DISPENSIN 6 HOME INC HOME INC G FEE INHALATIO N RX; PER 30 DAYS IPRATROPI J7644 MED 4 MED 4 UM 6 HOME INC HOME INC BROMIDE INHAL NON-CP U DOSE PER MG NEBULIZER E0570 MED 4 MED 4 WITH 6 HOME INC HOME INC COMPRESSO R ALBUTEROL J7613 MED 4 MED 4 INHAL 5 HOME INC HOME INC NON-CP PROD THRU DME U DOSE 1 MG PHRM Q0513 MED 4 MED 4 DISPENSIN 5 HOME INC HOME INC G FEE INHALATIO N RX; PER 30 DAYS IPRATROPI J7644 MED 4 MED 4 UM 5 HOME INC HOME INC BROMIDE INHAL NON-CP U DOSE PER MG NEBULIZER E0570 MED 4 MED 4 WITH 5 [facility] COMPRESSO R ADMN SET A7003 MED 4 MED 4 SM VOL 5 [facility] NONFILTR PNEUMAT NEBULIZR DISPBL ALBUTEROL J7613 MED 4 MED 4 INHAL 5 [facility] NON-CP PROD THRU DME U DOSE 1 MG IPRATROPI J7644 MED 4 MED 4 UM 5 HOME INC HOME INC BROMIDE INHAL NON-CP U DOSE PER MG PHRM Q0513 MED 4 MED 4 DISPENSIN 5 HOME [facility] INC G FEE INHALATIO N RX; PER 30 DAYS NEBULIZER E0570 MED 4 MED 4 WITH 5 HOME INC HOME INC COMPRESSO R TECHNETIU A9541 [facility] TC-99M [address] [facility] COLLOID DX UP TO 20 MCI GASTRIC 21385 [facility] EMPTYING [address] [facility] STUDY ALBUTEROL J7613 MED 4 MED 4 INHAL 5 HOME INC HOME INC NON-CP PROD THRU DME U DOSE 1 MG ADMN SET A7003 MED 4 MED 4 SM VOL 5 HOME INC HOME INC NONFILTR PNEUMAT NEBULIZR DISPBL PHRM Q0513 MED 4 MED 4 DISPENSIN 5 HOME INC HOME INC G FEE INHALATIO N RX; PER 30 DAYS IPRATROPI J7644 MED 4 MED 4 UM 5 HOME INC HOME INC BROMIDE INHAL NON-CP U DOSE PER MG PHRM Q0513 MED 4 MED 4 DISPENSIN 5 HOME INC HOME INC G FEE INHALATIO N RX; PER 30 DAYS IPRATROPI J7644 MED 4 MED 4 UM 5 HOME INC HOME INC BROMIDE INHAL NON-CP U DOSE PER MG ALBUTEROL J7613 MED 4 MED 4 INHAL 5 HOME INC HOME INC NON-CP PROD THRU DME U DOSE 1 MG INJECTION A9579 [facility] 5 [facility] BASED MR CONTRAST NOS [place] MRI 24808 [facility] [place]ST[place] MAT ABDOMEN 5 RADIOLOGY W/O & W/CONTRAS T MATERIAL CREATININ 14954 [facility] E BLOOD 5 [facility] COLLECTIO 57397 [facility] N VENOUS 5 [facility] VENIPUNCT URE COLLECTIO 24009 [facility] N VENOUS [address] [facility] VENIPUNCT URE SEDIMENTA 27526 [facility] TION RATE [address] [facility] AUTOMATED C-REACTIV 54710 [facility] E PROTEIN 5 [facility] ADMN SET A7005 MED 4 MED 4 W/SM VOL 5 HOME INC HOME INC NONFILTR NEBULIZR NON-DISPB L ALBUTEROL J7613 MED 4 MED 4 INHAL 5 HOME INC HOME INC NON-CP PROD THRU DME U DOSE 1 MG FILTER A7013 MED 4 MED 4 DISPOSABL 5 HOME INC HOME INC W/AREOSOL COMPRESS/ US GENERATOR ADMN SET A7003 MED 4 MED 4 SM VOL 5 HOME INC HOME INC NONFILTR PNEUMAT NEBULIZR DISPBL PHARM G0333 MED 4 MED 4 DISPEN 5 HOME INC HOME INC FEE INHAL RX; INITIAL 30-DAY SUPPLY IPRATROPI J7644 MED 4 MED 4 UM 5 HOME INC HOME INC BROMIDE INHAL NON-CP U DOSE PER MG AREO MASK A7015 MED 4 MED 4 USED W/ 5 HOME INC HOME INC DME NEB RADEX 91228 [facility] SMALL 5 [facility] INTESTINE INC INC [place] [address] [facility] AMYLASE 5 [facility] INC INC COMPREHEN 28366 [facility] SIVE 5 [facility] METABOLIC INC INC PANEL URNLS DIP 73080 [facility] 5 [facility] STICK/TAB INC INC LET REAGENT AUTO MICROSCOP Y INJECTION J2405 [facility] 5 [facility] ONDANSETR INC INC ON HCL PER [address] [place] [address] EMM[facility] LIPASE 5 [facility] INC INC THER 20627 EMM[facility] BO[facility] PROPH/DX 5 [facility] NJX IV INC INC PUSH SINGLE/1S T SBST/[place] [address] EMM[facility] BO[facility] ABDOMEN & 5 [facility] HOS[facility] PELVIS INC INC W/O CONTRAST MATERIAL THERAPEUT 87675 [facility] IC 5 [facility] INJECTION INC INC IV PUSH EACH NEW DRUG BLOOD 19705 EMM[facility] COUNT 5 [facility] COMPLETE INC INC AUTO&AUTO DIFRNTL WBC SPRING-PO A4258 UNITED UNITED WERED 5 STATES STATES DEVICE MEDICAL MEDICAL FOR SUPPLY SUPPLY LANCET EACH REPL JACKELIN A4233 UNITED STIRUM ALKALINE 5 [facility] STATES NOT J MEDICAL MEDICAL CELL AMINATA SUPPLY SUPPLY BG MON OWND PT BLOOD 60107 [facility] ESC[facility]ED[facility] OCCULT 5 [facility] ACTV TREAT QUAL FECES 1 DETER COLLECTIO 77722 [facility] ESCOBEDO N VENOUS 5 COUNTY NAN BLOOD URGENT VENIPUNCT TREAT URE BLOOD 23727 LAB DECLAN LAB DECLAN COUNT 5 [facility] COMPLETE [facility] AUTOMATED BLD GLU A4253 ARRIVA ARRIVA TEST/REAG 5 MEDICAL MEDICAL T STRIPS HOME BLD GLU MON-50 NORMAL A4256 ARRIVA ARRIVA LOW AND 5 MEDICAL MEDICAL HIGH CALIBRATO R SOLUTION/ CHIPS LANCETS A4259 ARRIVA ARRIVA PER BOX 5 MEDICAL MEDICAL OF 100 REPL JACKELIN A4233 ARRIVA ARRIVA ALKALINE 5 MEDICAL MEDICAL NOT J CELL AMINATA BG MON OWND PT FACE MASK A7031 US MED US MED 5 INC INC INTERFACE REPLCMT FULL FACE MASK EA FILTER A7039 US MED US MED NON 5 INC INC DISPBL USED W/POS ARWAY PRESS DEVICE FULL FACE A7030 US MED US MED MASK 5 INC INC USED W/POS ARWAY PRESS DEVICE EA FILTER A7038 US MED US MED DISPBL 5 INC INC USED W/POS ARWAY PRESSURE DEVICE TUBING A7037 US MED US MED USED WITH 5 INC [place] [address] [facility] SURG 5 HIPOLITO & EDGAR PATHOLOGY DUBILIER GROSS&CECY ROSCOPIC EXAM INITIAL 93451 [facility] 5 PHYSICIAN JIL CARE/DAY S GROUP 30 MINUTES ANES 34707 [facility] UPPER GI 5 ANESTH NIALL ENDOSCOPY OF THE PROXIMAL BLUE TO DUODENUM EGD 06982 [facility] ROGERIO JR TRANSORAL 5 PHYSICIAN JIL BIOPSY S GROUP SINGLE/MU LTIPLE SPECIAL 58233 [facility] STAIN 5 HIPOLITO & EDGAR GROUP 1 DUBILIER MICROORGA NISMS I&[place] [address] [place] ABDOMEN & 5 MEDICAL OMAR PELVIS IMAGING W/O ASS CONTRAST MATERIAL RADEX 74825 [facility] ABDOMEN 5 MEDICAL OMAR COMPL IMAGING W/DCBTS&/ ASS ERC VIEWS RADEX ABD 50415 [facility] [place] JAYLEEN CHR COMPL 5 RADIOLOGY AQT ABD W/S/E/D VIE[place] [address] [place] [address] [facility] [place] FARIAS ABDOMEN & 5 RADIOLOGY RAY PELVIS W/CONTRAS T MATERIAL ECG 18870 [facility] ROUTINE 5 SHANNON AP ECG EMERGENCY W/LEAST PHYS 12 LDS I&[place] [address] MEANS BUTROS RETROPERI 5 ADULT JONNY TONEAL PRIMARY REAL TIME CARE CLI W/IMAGE LIMITED LANCETS A4259 UNITED UNITED PER BOX 5 STATES STATES OF 100 MEDICAL MEDICAL SUPPLY SUPPLY NORMAL A4256 UNITED UNITED LOW AND 5 STATES STATES HIGH MEDICAL MEDICAL CALIBRATO SUPPLY SUPPLY R SOLUTION/ CHIPS BLD GLU A4253 UNITED UNITED TEST/REAG 5 STATES STATES T STRIPS MEDICAL MEDICAL HOME BLD SUPPLY SUPPLY GLU MON-50 RADIOLOGI 67258 [facility] [place] STEPHANY C EXAM 5 RADIOLOGY CAR CHEST 2 VIEWS FRONTAL&L ATERAL INJECTION J2001 [address] LIDOCAINE HCL INTRAVENO US INFUS 10 MG BLOOD [address] PLATELET AUTOMATED CATH PLMT 55444 [facility] HRT & [address] [place] [address] ARTS W/NJX & ANGIO IMG S&I GUIDE C[address] INJECTION J3[address] CITRATE 0.1 MG BLOOD [address] HEMATOCRI T BASIC [address] PANEL CALCIUM IONIZED CLOSURE C1760 [facility] DEVICE [address] [place] [address] VASCULAR INTRDUCR/ C1894 [facility] SHEATH [address] [place] [address] NOT GUID INTRACARD EP NON-LASR INJECTION J2250 [address] MIDAZOLAM HCL PER 1 MG NASL A7034 BENJIE WALDROP INTRFCE 5 HOME HOME POS [facility] MEDICAL MEDICAL PRSS EQUIPME EQUIPME DEVC W/WO HEAD STRAP COLLECTIO 10239 [facility] N VENOUS [address] [place] [address] VENIPUNCT URE BASIC 55414 [facility] METABOLIC [address] [place] [address] CALCIUM TOTAL BLD GLU A4253 ARRIVA ARRIVA TEST/REAG 5 MEDICAL MEDICAL T STRIPS HOME BLD GLU MON-50 LANCETS A4259 ARRIVA ARRIVA PER BOX 5 MEDICAL MEDICAL OF 100 NORMAL A4256 ARRIVA ARRIVA LOW AND 5 MEDICAL MEDICAL HIGH CALIBRATO R SOLUTION/ CHIPS BLOOD 23354 [facility] COUNT [address] [place] [address] AUTO&AUTO DIFRNTL WBC NATRIURET 50335 [facility] IC [address] [place] [address] HOSPITAL RADIOLOGI 99856 [facility] C EXAM [address] [place] [address] VIEWS FRONTAL&L ATERAL COLLECTIO 86000 [facility] N VENOUS [address] [place] [address] VENIPUNCT URE DUP-SCAN 95920 GUERRERO HELMS HELMS GUERRERO XTR VEINS 5 COMPLETE CONSULTIN G SRV BILATERAL STUDY ECG 48539 GUERRERO HELMS FOWLER ROUTINE 5 MD CAMPBELL ECG CONSULTIN W/LEAST G SERV 12 LDS W/I&R COMPREHEN 68581 [facility] SIVE [address] [place] [address] PANEL CV STRS 83036 GUERRERO HELMS HELMS GUERRERO TST 5 XERS&/OR CONSULTIN RX CONT G SRV ECG I&R ONLY NONINVASI 52811 [facility] VE [address] [place] [address] EAR/PULSE HOSPITAL HOSPITAL OXIMETRY OVERNIGHT MONITOR HEMOGLOBI 34827 GAMAL YEUN[facility] N 5 [facility] CV STRS 89930 GAMAL YEUNG TST 5 [facility] XERS&/OR [facility] RX CONT ECG TRCG ONLY COLLECTIO 03657 GAM[facility] YEUNG N VENOUS 5 [facility] VENIPUNCT URE TECHNETIU A9500 GAMAL YEUNG M TC-99M 5 [facility] DX PER STUDY DOSE MYOCARDIA 15046 GAMAL YEUNG L SPECT 5 [facility] STUDIES ELIG CLIN G8427 MEANS BUTROS ATTSTS 5 ADULT JONNY DOC M REC PRIMARY OBTD CARE CLI UPD/REV PT MEDS TUBING A7037 US MED US MED USED WITH 5 INC INC POSITIVE AIRWAY PRESSURE DEVICE HEADGEAR A7035 US MED US MED USED 5 INC INC W/POSITIV E AIRWAY PRESSURE DEVICE FULL FACE A7030 US MED US MED MASK 5 INC INC USED W/POS ARWAY PRESS DEVICE EA FACE MASK A7031 US MED US MED 5 INC INC INTERFACE REPLCMT FULL FACE MASK EA ECG 74483 GUERRERO HELMS HELMS GUERRERO ROUTINE 5 ECG CONSULTIN W/LEAST G SRV 12 LDS W/I&R ELIG CLIN G8427 MEANS BUTROS ATTSTS 4 ADULT JONNY DOC M REC PRIMARY OBTD CARE CLI UPD/REV PT MEDS HEADGEAR A7035 BENJIE WALDROP USED 2 HOME HOME W/POSITIV MEDICAL MEDICAL E AIRWAY EQUIPME EQUIPME PRESSURE DEVICE FULL FACE A7030 BENJIE MCDERMOTTRELL MASK 2 HOME HOME USED MEDICAL MEDICAL W/POS EQUIPME EQUIPME ARWAY PRESS DEVICE EA FILTER A7038 BENJIE WALDROP DISPBL 2 HOME HOME USED MEDICAL MEDICAL W/POS EQUIPME EQUIPME ARWAY PRESSURE DEVICE FILTER A7039 BENJIE WALDROP NON 2 HOME HOME DISPBL MEDICAL MEDICAL USED EQUIPME EQUIPME W/[place] [address] [employer], FREE 2 DIRECTOR SPECIAL EDUCATION DIRECTOR SPECIAL EDUCATION THYROXINE [place] [address] [facility] [employer] [facility], THYROID 2 DIRECTOR SPECIAL EDUCATION DIRECTOR SPECIAL EDUCATION STIMULATI LEXI BLACKMONS NG CO HOS CO HOS HORMONE TSH COMPREHEN 05354 [facility] [employer], [facility], SIVE 2 DIRECTOR SPECIAL EDUCATION DIRECTOR SPECIAL EDUCATION METABOLIC LEXI LEXI PANEL CO HOS CO HOS COLLECTIO 07821 [employer] [facility] N VENOUS 2 BLOOD VENIPUNCT URE 25 53092 [facility] [employer], [facility], HYDROXY 2 DIRECTOR SPECIAL EDUCATION DIRECTOR SPECIAL EDUCATION INCLUDES LEXI [facility] FRACTIONS CO HOS CO HOS IF PERFORMED BLOOD 14935 [facility], COUNT 2 DIRECTOR SPECIAL EDUCATION DIRECTOR SPECIAL EDUCATION COMPLETE LEXI LEXI AUTO&AUTO CO HOS CO HOS DIFRNTL WBC LIPID 79585 [facility], [facility], PANEL 2 DIRECTOR SPECIAL EDUCATION DIRECTOR SPECIAL EDUCATION LEXI LEXI CO HOS CO HOS ECG 53106 HELMS GUERRERO HELMS GUERRERO ROUTINE 2 ECG W/LEAST 12 LDS W/I&R LIPID 36327 [facility] [employer] [facility], PANEL 2 DIRECTOR SPECIAL EDUCATION DIRECTOR SPECIAL EDUCATION L[facility]I [facility] CO [facility]OS CO HOS HEPATIC 98983 [facility] [employer], [facility], FUNCTION 2 DIRECTOR SPECIAL EDUCATION DIRECTOR SPECIAL EDUCATION PANEL LEXI [facility] CO HOS CO HOS BLOOD 05467 [facility] [employer], [facility] COUNT 2 DIRECTOR SPECIAL EDUCATION DIRECTOR SPECIAL EDUCATION COMPLETE LEXI LEXI AUTO&AUTO CO HOS CO HOS DIFRNTL WBC COLLECTIO 82988 [employer] N VENOUS 2 BLOOD VENIPUNCT URE COMPREHEN 55777 [facility] [employer], [facility], SIVE 2 DIRECTOR SPECIAL EDUCATION DIRECTOR SPECIAL EDUCATION METABOLIC LEXI LEXI PANEL CO HOS CO HOS URNLS DIP 86556 [employer] 2 STICK/TAB LET RGNT NON-AUTO W/O MICRSCP BLOOD 10828 [employer] OCCULT 2 PEROXIDAS E ACTV QUAL FECES 1 DETER CONTINUOU E0601 BENJIE WALDROP S 2 HOME HOME POSITIVE MEDICAL MEDICAL AIRWAY EQUIPME EQUIPME PRESSURE DEVICE CONTINUOU E0601 BENJIE WALDROP S 2 HOME HOME POSITIVE MEDICAL MEDICAL AIRWAY EQUIPME EQUIPME PRESSURE DEVICE DUP-SCAN 39680 [place] [facility] JULISSA 2 EIDER CASIE ABDL/PEL/ RADIOLOGY SCROT&/RP ASSOCIAT R ORGN LMT RADIOLOGI 83104 [facility] C EXAM 2 EIKAHN CHEST 2 RADIOLOGY VIEWS ASSOCIAT FRONTAL&L ATERAL OBSERVATI 80154 [facility] ON/INPATI 2 ENT HOSPITAL CARE 50 MINUTES CONTINUOU E0601 BENJIE WALDROP S 2 HOME HOME POSITIVE MEDICAL MEDICAL AIRWAY EQUIPME EQUIPME PRESSURE DEVICE HOSPITAL 10465 [facility] DISCHARGE 2 GIAN GINA DAY MANAGEMEN T > 30 MIN SBSQ 81483 [facility] 2 GIAN GIAN CARE/DAY 35 MINUTES DUP-SCAN 79037 HELMS GUERRERO HELMS GUERRERO XTR VEINS 2 UNILATERA L/LIMITED STUDY INITIAL 50544 [facility] 2 GIAN GIAN CARE/DAY 70 MINUTES SEDIMENTA 54516 [facility], TION RATE 2 DIRECTOR SPECIAL EDUCATION DIRECTOR SPECIAL EDUCATION RBC L[facility]I [facility] NON-AUTOM CO HOS CO HOS ATED CREATINE 25239 [facility], KINASE 2 DIRECTOR SPECIAL EDUCATION DIRECTOR SPECIAL EDUCATION TOTAL [facility]I [facility] CO HOS RADEX HIP 09409 [facility] JACK UNILATERA RADIOLOGY L ASSOCIAT COMPLETE MINIMUM 2 VIEWS RADIOLOGI 76146 [facility] C EXAM 2 JACK CHEST 2 RADIOLOGY VIEWS ASSOCIAT FRONTAL&L ATERAL RADIOLOGI 97171 [facility] C 2 JACK EXAMINATI RADIOLOGY ON FEMUR ASSOCIAT 2 VIEWS C-REACTIV 77144 [facility], E PROTEIN 2 DIRECTOR SPECIAL EDUCATION DIRECTOR SPECIAL EDUCATION L[facility]I [facility] HOS CO HOS COMPREHEN 57673 [facility], SIVE 2 DIRECTOR SPECIAL EDUCATION DIRECTOR SPECIAL EDUCATION METABOLIC LEXI [facility] PANEL CO HOS CO HOS CREATINE 35715 [facility], KINASE MB 2 DIRECTOR SPECIAL EDUCATION DIRECTOR SPECIAL EDUCATION FRACTION LEXI [facility] ONLY CO HOS CO HOS BLOOD 56435 [facility], COUNT 2 DIRECTOR SPECIAL EDUCATION DIRECTOR SPECIAL EDUCATION COMPLETE LEXI LEXI AUTO&AUTO CO HOS CO HOS DIFRNTL WBC NATRIURET 99078 [employer], [facility], IC 2 DIRECTOR SPECIAL EDUCATION DIRECTOR SPECIAL EDUCATION PEPTIDE LEXI ELLIOTT CO HOS CO HOS MYOGLOBIN 85722 [facility], 2 DIRECTOR SPECIAL EDUCATION DIRECTOR SPECIAL EDUCATION [place] [address] [employer], [facility] [employer], TROPONIN 2 DIRECTOR SPECIAL EDUCATION DIRECTOR SPECIAL EDUCATION QUANTITAT LEXI BLACKMONS SATHISH CO HOS CO HOS ECG 45746 LINDA MCKEON ROUTINE 2 JIL JIL ECG W/LEAST 12 LDS I&R ONLY BASIC [address] PANEL CALCIUM IONIZED INJECTION J2250 [address] [place]OLAM HCL PER 1 MG BLOOD [address] HEMATOCRI T INJECTION J3010 [address] CITRATE 0.1 MG COLLECTIO 19722 [facility] N VENOUS [address] [place] [address] BLOOD VENIPUNCT URE INJECTION J[address] L[facility]OCAINE HCL INTRAVENO US INFUS 10 MG CATH PLMT 71982 SRINIVASAN KATIA SRINIVASAN KATIA L HRT & 2 ARTS W/NJX & ANGIO IMG S&I BLOOD [address] PLATELET AUTOMATED ECG 94993 HELMS GUERRERO HELMS GUERRERO ROUTINE 2 ECG W/LEAST 12 LDS W/I&R POLYSOM 45926 HELMS GUERRERO HELMS GUERRERO 6/>YRS 2 SLEEP W/CPAP 4/> ADDL MARINA ATTND CV STRS 24933 [facility] TST 2 [facility] XERS&/OR HOSPITAL HOSPITAL RX CONT ECG TRCG ONLY NONINVASI 95280 [facility] VE [facility] HOSPITAL OXIMETRY OVERNIGHT MONITOR CV STRS 20488 HELMS GUERRERO HELMS GUERRERO TST 2 XERS&/OR RX CONT ECG I&R ONLY MYOCARDIA 96289 GAMAL YEUNG L SPECT 2 [facility] STUDIES POLYSOM 72701 [facility] 6/>YRS 2 [facility] W/CPAP 4/> ADDL MARINA ATTND CYANOCOBA 57319 [facility] [employer] [employer], CAESAR 2 DIRECTOR SPECIAL EDUCATION DIRECTOR SPECIAL EDUCATION VITAMIN LEXI BLACKMONS B-12 CO HOS CO HOS 25 70741 [facility] [employer], [facility], HYDROXY 2 DIRECTOR SPECIAL EDUCATION DIRECTOR SPECIAL EDUCATION INCLUDES LEXI LEXI FRACTIONS CO HOS CO HOS IF PERFORMED HEADGEAR A7035 BENJIE WALDROP USED 2 HOME HOME W/POSITIV MEDICAL MEDICAL E AIRWAY EQUIPME EQUIPME PRESSURE DEVICE NASL A7034 BENJIE WALDROP INTRFCE 2 HOME HOME POS [facility]ICAL PRSS EQUIPME EQUIPME DEVC W/WO HEAD STRAP XTRNL ECG 48203 HELMS GUERRERO HELMS GUERRERO 2 CONTINUOU S RHYTHM W/I&R UP TO 48 HRS HUMDIFIR E0562 BENJIE WALDROP HEATED 2 HOME HOME USED MEDICAL MEDICAL W/POS EQUIPME [place] [address] [employer], THYROID 2 DIRECTOR SPECIAL EDUCATION DIRECTOR SPECIAL EDUCATION STIMULATI LEXI BLACKMONS NG [place] [address] [employer], FREE 2 DIRECTOR SPECIAL EDUCATION DIRECTOR SPECIAL EDUCATION THYROXINE [place] [address] [employer], IRON 2 DIRECTOR SPECIAL EDUCATION DIRECTOR SPECIAL EDUCATION LEXI LEXI CO HOS CO HOS FILTER A7039 BENJIE WALDROP NON 2 HOME HOME DISPBL MEDICAL MEDICAL USED EQUIPME EQUIPME W/POS ARWAY PRESS DEVICE CONTINUOU E0601 BENJIE WALDROP S 2 HOME HOME POSITIVE MEDICAL MEDICAL AIRWAY EQUIPME EQUIPME PRESSURE DEVICE FILTER A7038 BENJIE WALDROP DISPBL 2 HOME HOME USED MEDICAL MEDICAL W/POS EQUIPME EQUIPME ARWAY PRESSURE DEVICE IRON 78389 [employer], BINDING 2 DIRECTOR SPECIAL EDUCATION DIRECTOR SPECIAL EDUCATION CAPACITY LEXI LEXI CO HOS CO HOS THYROID 68227 [facility] [employer], [employer], HORM 2 DIRECTOR SPECIAL EDUCATION DIRECTOR SPECIAL EDUCATION UPTK/THYR LEXI ELLIOTT OID CO HOS CO HOS HORMONE BINDING RATIO LIPID 70331 [employer], PANEL 2 DIRECTOR SPECIAL EDUCATION DIRECTOR SPECIAL EDUCATION LEXI ELLIOTT CO HOS CO HOS TUBING A7037 BENJIE WALDROP USED WITH 2 HOME HOME POSITIVE MEDICAL MEDICAL AIRWAY EQUIPME EQUIPME PRESSURE DEVICE DUPLEX 95434 HELMS GUERRERO HELMS GUERRERO SCAN 2 EXTRACRAN IAL ART COMPL BI STUDY DUP-SCAN 74790 HELMS GUERRERO HELMS GUERRERO XTR VEINS 2 COMPLETE BILATERAL STUDY XTRNL ECG 28114 HELMS GUERRERO HELMS GUERRERO & 48 HR 2 RECORDING ECG 87908 HELMS GUERRERO HELMS GUERRERO ROUTINE 2 ECG W/LEAST 12 LDS W/I&[place] [address] [place] GONSALES ABDOMEN & 2 [facility] PELVIS RADIOLOGY W/O ASSOCIAT CONTRAST MATERIAL HOSPITAL 98015 WORKS [facility]ORGES WORKS GEORGES DISCHARGE 2 DAY MANAGEMEN T > 30 MIN ECG 51213 WORKS [facility]ORGES WORKS GEORGES ROUTINE 2 ECG W/LEAST 12 LDS I&R ONLY RADIOLOGI 80488 [place] [facility] C EXAM 2 [facility] CHEST 2 RADIOLOGY VIEWS ASSOCIAT FRONTAL&[place] [address] [place] DRU HEAD/BRAI 2 JACK N W/O RADIOLOGY CONTRAST ASSOCIAT MATERIAL NEBULIZER E0570 MT MED MT MED WITH 2 EQUIPMENT EQUIPMENT COMPRESSO INC INC R ADMN SET A7005 MT MED MT MED W/SM VOL 2 EQUIPMENT EQUIPMENT NONFILTR INC INC NEBULIZR NON-DISPB L THERAPEUT 63386 [employer], [employer], IC PX 1/> 2 DIRECTOR SPECIAL EDUCATION DIRECTOR SPECIAL EDUCATION AREAS LEXI ELLIOTT EACH 15 CO HOS CO HOS MIN EXERCISES NONINVASI 90091 AHMED ADN AHMED ADN VE 2 EAR/PULSE OXIMETRY SINGLE DETER THERAPEUT 12174 LEXI ELLIOTT IC PX 1/> 2 CO CO [facility] EACH 15 MIN EXERCISES RADIOLOGI 21723 [place] [facility] EXAM 2 JACK CHEST 2 RADIOLOGY VIEWS ASSOCIAT FRONTAL&L ATERAL RADEX 51922 LEXI ELLIOTT SPINE 1 CO CO LUMBOSACR [facility] AL MINIMUM 4 VIEWS ANTINUCLE 29651 LEXI ELLIOTT AR 1 CO CO ANTIBODIE [facility] S SARAH SEDIMENTA 22321 LEXI ELLIOTT TION RATE 1 CO [place] RBC [facility] NON-AUTOM ATED RHEUMATOI 06693 LEXI Bae FACTOR 1 CO [place] QUANTITAT [facility] SATHISH DRUG SCR 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 Y & Y & CHROMATOG BIODIAGNO BIODIAGNO RAPHIC; STICS STICS ANY NUMBER PT ENC URNLS DIP 76753 TAMAREN TAMAREN 1 Jun STICK/TAB LET RGNT NON-AUT[place] [address] L[place] ELLIOTT UREA 1 [place] NITROGEN [facility] [place] [address] [facility] ABDOMEN & 1 EIDER CASIE PELVIS RADIOLOGY W/O ASSOCIAT CONTRST 1/> BODY RE CREATININ 90704 L[place]I Kaplan BLOOD 1 [facility] HEMORRHOI 66052 [place] DECTOMY 1 [place] [facility] [place] INTERNAL RUBBER BAND LIGATIONS ANES 91943 [place] COLEMAN LOWER 1 [facility] INTESTINE [facility] ENDOSCOPY [place] FLX [address] [place] MOSER 1 [facility] LAR W/REMOVAL LESION BY HOT BX FORCEPS RINGERS J7120 [place] LACTATE 1 [facility] INFUSION [facility] UP TO 1000 CC INJECTION J1100 [place] COLEMAN 1 [facility] DEXAMETHO [facility] SONE SODIUM PHOSPHATE 1 MG INJECTION J1885 [place] COLEMAN 1 [facility] KETOROLAC [facility] TROMETHAM INE PER 15 MG INJECTION J3010 [place] COLE[place] FENTANYL 1 [facility] CITRATE [facility] 0.1 MG UNCLASSIF J3490 [place] COLEMAN IED DRUGS 1 [facility] [place] [address] [facility]IP[facility] JULIUS SURG 1 [place] INC CAR PATHOLOGY GROSS&CECY ROSCOPIC EXAM INJECTION J2405 [place] COLEMAN 1 [facility] PER 1 MG INJECTION J2270 [place] MORPHINE 1 [facility] SULFATE [facility] UP TO 10 MG GONADOTRO 30728 [place] COLEMAN PIN 1 [facility] QUALITATI VE NONINVASI 75425 [place] PATEL VE 1 [facility] EAR/PULSE RURAL OXIMETRY HEALTH SINGLE DETER SPMTRY 49507 [place] ELLIOTT W/VC 1 [place] [facility] Y JULISSA W/WO MXML VOL VNTJ ECHO 61227 GUERRERO HELMS HELMS GUERRERO TTHRC R-T 1 2D CONSULTIN W/WOM-MOD G SRV E COMPL SPEC&COLR D ECHO 24494 L[place]I ELLIOTT TTHRC R-T [address] [facility] W/WOM-MOD E COMPL SPEC&COLR D LIPID 03844 L[place]I ELLIOTT PANEL [address] [facility] LIPOPROTE 44288 L[place]I ELLIOTT IN DIRECT [address] [facility] MEASUREME NT LDL CHOLESTER OL HEMOGLOBI 13833 LEXI ELLIOTT N 1 [facility] GLYCOSYLA [facility] SAE A1C COMPREHEN 81254 L[place]I ELLIOTT SIVE 1 [facility] [place] [address] L[place]I ELLIOTT THYROID 1 [facility]ORM[facility] TSH COLLECTIO 78081 L[place]I Johnson VENOUS [address] [facility] VENIPUNCT URE DUP-SCAN [address]167 [place] GONSALES XTR VEINS 1 [facility] COMPLETE RADIOLOGY ASSOCIAT BILATERAL STUDY ECG 12769 GUERRERO HELMS HELMS GUERRERO ROUTINE 1 ECG CONSULTIN W/LEAST G SRV 12 LDS W/I&R Encounters Encounter Start End Date Code Location Performer Type Date [facility] [address] [facility] [address] [facility] [facility] T VISIT ORTHOPAED 15 [facility] [address] [facility] [address] 7 T VISIT ORTHOPAED 15 ICS PSC MINUTES OFFICE 10268 [facility] 7 7 CULAR & T VISIT SLEEP 25 CONSU MINUTES OFFICE 89520 [facility] 7 7 T VISIT ORTHOPAED 15 [facility]CS P[facility] [place] [place] T OFFICE 23275 [facility] 7 7 PHYSICIAN T NEW 30 S GROUP MINUTES OFFICE 63911 GUERRERO HELMS [facility] 7 MD T VISIT CONSULTIN 25 G SRV MINUTES HOSPITAL [facility] - 7 7 [facility] 7 7 [facility] [place] [facility] 7 7 [facility] [place] [place] T OFF[facility] 95614 GUERRERO CHURCH [facility] 7 7 MD T VISIT CONSULTIN 25 G SRV MINUTES OFFICE 15058 [place] ESCOBEDO [facility]IEN 6 6 [facility] 15 TREAT MINUTES OFFICE 74967 [place] ESCOBEDO OUTPATIEN 6 6 [facility] 25 TREAT MINUTES OFFICE 94081 [place] ESCOBEDO [facility]PATIEN 6 6 [facility] 15 TREAT MINUTES OFFICE 37192 LAURA CHONG OUTPATIEN 6 6 MD [place], T VISIT PSC 10 MINUTES HOSPITAL [facility] - 6 6 [facility] OUT[facility]EN [facility] T OFFICE 60338 LAURA STEELE OUTPATIEN 6 6 MD [place], T VISIT PSC 25 MINUTES HOSPITAL [facility] - 6 6 [facility] T OFFICE 74979 LAURA STEELE OUTPATIEN 6 6 MD [place], T VISIT PSC 15 MINUTES HOSPITAL EMM[facility] - 6 6 [facility] OUTPATIEN [facility] T OFFICE 32774 [place]IO ESCOBEDO OUTPATIEN 6 6 [facility]ENT 25 TREAT MINUTES OFFICE 76645 LAURAEDIE CHONG OUTPATIEN 6 6 MD [place], T VISIT PSC 10 MINUTES OFFICE 47177 [place] ESCOBEDO OUTPATIEN 6 6 [facility] T VIS[facility] URGENT 25 TREAT MINUTES OFFICE 34773 LAURA COY OUTPATIEN 6 6 MD [place], T VISIT PSC 15 MINUTES OFFICE 48915 [place] ESCOBEDO OUTPATIEN 6 6 [facility] T [facility]IS[facility]RGENT 25 TREAT MINUTES OFFICE 47535 LAURA STEELE OUTPATIEN 6 6 MD [place], T VISIT PSC 25 MINUTES OFFICE 50826 LAURA STEELE OUTPATIEN 5 5 MD [place], T NEW 45 PSC MINUTES OFFICE 22723 [place] ESCOBEDO OUTPATIEN 5 5 [facility] T V[facility] 25 TREAT MINUTES [facility] [place] [address] [facility] 00400 [place] GREGG [facility]PATIEN 5 5 [facility] 15 TREAT MINUTES OFFICE 16807 [place] GREGG OUTPATIEN 5 5 [facility]IS[facility]RGENT 25 TREAT MINUTES OFFICE 03310 [place] ESCOBEDO OUTPATIEN 5 5 [facility] 25 TREAT MIN[facility]ES [facility] [place] [address] [facility] OUTPATIEN JOSÉ T OFFICE 36255 [place] ESCOBEDO OUTPATIEN 5 5 [facility] T VISIT URGENT 25 TREAT MINUTES OFFICE 76924 [facility] 5 5 [facility] T NEW 30 MEDICAL MINUTES HOSP[facility] - [address] [facility] OUTPATIEN JOSÉ T OFFICE 90838 [place] ESCOBEDO OUTPATIEN 5 5 [facility] T VISIT URGENT 10 TREAT MINUTES OFFICE 81368 [place] ESCOBEDO OUTPATIEN 5 5 [facility] T VISIT URGENT 25 TREAT MINUTES OFFICE 67774 [place] ESCOBEDO OUTPATIEN 5 5 [facility] T VISIT URGENT 25 TREAT MINUTES HOSPITAL EMM[facility] - 5 5 [facility] OUTPATIEN [facility] T OFFICE 04549 [place] ESCOBEDO OUTPATI[facility] 5 5 [facility] T VISIT URGENT 25 TREAT MINUTES EMERGENCY 13513 EMMY 5 [address] [facility] T VISIT HIGH/URGE NT SEVERITY HOSPITAL EMMY - 5 5 [facility] OUTPATIEN [facility] T OFFICE 82598 [place] ESCOBEDO OUTPATIEN 5 5 [facility] 15 TREAT MINUTES OFFICE 04986 [place] ESCOBEDO OUTPATIEN 5 5 [facility] T VISIT URGENT 25 TREAT MINUTES OFFICE 23743 [place] ESCOBEDO OUTPATIEN 5 5 [facility] T VISIT URGENT 25 TREAT MINUTES OFFICE 40892 [place] ESCOBEDO OUTPATIEN 5 5 [facility] T VISIT URGENT 25 TREAT MINUTES OFFICE 30827 [place] ESCOBEDO OUTPATIEN 5 5 [facility] T VISIT URGENT 25 TREAT MINUTES OFFICE 97462 [place] ESCOBEDO OUTPATIEN 5 5 [facility] T NEW 20 URGENT MINUTES TREAT EMERGENCY 87748 EMMY LUNA, 5 5 [facility] T VISIT P HIGH/URGE NT SEVERITY OFFICE 41004 LEONIDAS BUTROS OUTPATIEN 5 5 ADULT JONNY T VISIT PRIMARY 15 CARE CLI MINUTES EMERGENCY 65776 [facility] [place] VISIT EMERGENCY HIGH SERVI SEVERITY& THREAT FUNCJ EMERGENCY 17448 [facility] 5 5 [facility] EMERGENCY T VISIT PHYS HIGH/URGE NT SEVERITY OFFICE 46756 MEANS BUTROS OUTPATIEN 5 5 ADULT JONNY T VISIT PRIMARY 25 CARE CLI MINUTES [facility] 5 5 [facility] T OFFICE 75507 GUERRERO HELMS DIXIE OUTPATIEN 5 5 MD CAMPBELL T VISIT CONSULTIN 25 G SERV MINUTES OFFICE 69534 MEANS BUTROS OUTPATIEN 5 5 ADULT JONNY T VISIT PRIMARY 25 CARE CLI MINUTES OFFICE 15978 GUERRERO HELMS [facility] T [facility]ISIT CONSULTIN 15 G SRV MINUTES [facility] 5 5 [facility] [place] [place] T OFFICE 19052 GUERRERO HELMS [facility] 5 5 MD CAMPBELL T VISIT CONSULTIN 25 G SERV MINUTES [facility] 5 5 [facility] [place] [address] 5 [facility] [place] [place] T OFFICE 65439 MEANS BUTROS OUTPATIEN 5 5 ADULT JONNY T VISIT PRIMARY 25 CARE CLI MINUTES OFFICE 70123 GUERRERO HELMS HELMS [facility] OUTPATI 5 5 T VISIT CONSULTIN 25 G SRV MINUTES OFFICE 22916 MEANS BUTROS OUTPATIEN 4 4 ADULT JONNY T VISIT PRIMARY 25 CARE CLI MINUTES OFFICE 31793 MEANS BUTROS OUTPATIEN 4 4 ADULT JONNY T VISIT PRIMARY 15 CARE CLI MINUTES Emergency ANTIONETTE Fam (ER) 3 09:33 3 10:48 [facility] - 2 2 DIRECTOR SPECIAL EDUCATION OUTPATIEN [facility] HOS OFFICE 12267 WORKS GEORGES WORKS [facility]ORGES OUTPATIEN 2 2 T VISIT 25 MINUTES OFFICE 83807 HELMS GUERRERO HELMS GUERRERO OUTPATIEN 2 2 T VISIT 25 MINUTES [facility] - 2 2 [facility] 30645 WORKS GEORGES WORKS GEORGES OUTPATIEN 2 2 T VISIT 25 MINUTES OFFICE 73057 KERN CAR KERN CAR OUTPATIEN 2 2 T VISIT 15 MINUTES EMERGENCY 86600 LINDA MCKEON DEPT 2 2 JIL JIL VISIT HIGH SEVERITY& THREAT [facility] - 2 2 [facility] [address] T OFFICE 32865 HELMS GUERRERO HELMS GUERRERO OUTPATIEN 2 2 T VISIT 25 MINUTES [facility] [place] [facility] 2 2 [facility] 2 2 [facility] - 2 2 [facility] 77281 HELMS GUERRERO HELMS GUERRERO OUTPATIEN 2 2 T VISIT 25 MINUTES [facility] - 2 2 [facility] 85670 AHMED ARY AHMED ADN OUTPATIEN 2 2 T VISIT 15 MINUTES [facility] - 2 2 [facility] T OFFICE 71089 AHMED ARY AHMED ADN OUTPATIEN 2 2 T VISIT 25 MINUTES OFFICE 32493 DAVINA GHOSH OUTPATIEN 1 1 [facility] VISIT 15 MINUTES HOSPITAL [place] - 1 1 [facility] T OFFICE 32165 BELÉN MELISSA OUTPATIEN 1 1 [facility] NEW 30 MINUTES OFFICE 93767 [place] PATEL OUTPATIEN 1 1 [facility] VISIT RURAL 25 [facility] [place] - 1 1 [facility] 1 [facility] 29913 [place] GANKATHIE OUTPATIEN 1 1 [facility] VISIT RURAL 15 [facility] 19818 [facility] 1 1 [facility] NEW [facility]ES [facility] 1 1 [facility] [place] - 1 1 [facility] T OFFICE 50799 GUERRERO HELMS HELMS GUERRERO OUTPATIEN 1 1 MD Kemi HOLDEN 45 CONSULTIN MINUTES G [facility] OFFICE 50401 [facility] 8 8 , CHAUNCEY GAINES T NEW 20 MINUTES
--- OUTSIDE RECORDS SUMMARY | 2017-04-02 11:29 | External Medical Summary Rpt | CCD ---
Author Author , TRISTIAN Organization TRISTIAN Address Unknown Phone [email or web address] Care Team Providers Care Resident Care Technician Name Role Phone AHMED ADN, AHMED ADN [...] Unavailable Unavailable [facility] Unavailable [facility]available [facility] ARGUETA, ARGUETA Unavailable Unavailable ARGUETA ALL, ARGUETA ALL Unavailable Unavailable [facility] Unavailable Unavailable [facility], [facility] HAMMOND CAR, HAMMOND Unavailable Unavailable [facility] [...] [facility] Un[facility] Unavailable [facility], [facility] DAVINA LAYNE, Unavailable Unavailable DAVINA LAYNE, Unavailable Unavailable DAVINA CHAVEZ ZBIGNIEW, KATHY ZBIGNIEW Unavailable Unavailable [facility], Unavailable Unavailable [facility], Unavailable Unavailable [facility] JR RAQUEL LUNA, Unavailable Unavailable LUNA, JR DOBSONZ JESÚSY ENOCH, ELIOTPADMINIPeri Unavailable Unavailable ENOCH JASON, Unavailable Unavailable KENDALL JASON FOWLER, FOWLER Unavailable Unavailable JANETH CAMPBELL, Unavailable Unavailable F[facility]ER SHANNAN DE SOUZA, Unavailable Unavailable [facility] Unavailable Unavailable INC, [facility] Unavailable Unavailable HOSPITAL P, [facility], Unavailable Unavailable [facility] CHRISTY, CHRISTY Unavailable Unavailable GREGG, GREGG Unavailable Unavailable GREGG NAN, GREGG Unavailable Unavailable NAN LINDA JIL, LINDA Unavailable Unavailable JIL LINDA JIL, LINDA Unavailable Unavailable JIL EHSAN LAR, EHSAN Unavailable Unavailable [facility] Unavailable Unavailable IMAGING ASS, [facility] KERN CAR, KERN CAR Unavailable Unavailable KRIMM FERMIN, KRIMM FERMIN Unavailable Unavailable [facility] Unavailable Unavailable [facility] & Unavailable Unavailable [facility] TINY CRI, TINY CRI Unavailable Unavailable SRINIVASAN KATIA, SRINIVASAN KATIA Unavailable Unavailable DALLAS EDGAR, DALLAS Unavailable Unavailable ED[facility] Unavailable Unavailable [facility], [facility] Unavailable Unavailable CARE [facility], [facility], [facility] Unavailable Unavailable [facility] Unavailable Unavailable [facility] [employer] [place] Unavailable Unavailable [facility], [facility] [place], Unavailable Unavailable [facility] YAIR GIAN, YAIR Unavailable Unavailable GIAN YAIR GIAN, YAIR Unavailable Unavailable [facility], Unavailable Unavailable [facility] Unavailable Unavailable HEALTH, [facility] Unavailable Unavailable URGENT TREAT, [facility], [...] Unavailable Unavailable EQUIPME, [facility] PENDING SALE TO [facility] Unavailable Unavailable [facility]ENCY [facility] PENDING S[facility] TO [facility] PENDING SALE TO [facility] Unavailable Unavailable EMERGENCY SERVI, PENDING SALE TO [facility], Unavailable Unavailable 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 [id number] OTHER 03-09-2017 [facility] ASTHMA INC E039 HYPOTHYROID 02-23-2017 [facility] UNSPECIFIED E119 TYPE 2 02-23-2017 [facility] DIABETES [facility] MELLITUS WITHOUT COMPLICATIO NS E784 OTHER 02-23-2017 [facility] HYPERLIPIDE HOSPITAL NELL G4733 OBSTRUCTIVE 02-23-2017 [facility] SLEEP [facility] APNEA ADULT PEDIATRIC I10 ESSENTIAL 02-23-2017 [facility] HYPERTENSIO N X74152 [facility] [place] 02-23-2017 [facility] W/UNS ANGINA PECTORIS J439 EMPHYSEMA 02-23-2017 [facility] UNSPECIFIED HOSPITAL M1990 UNSPECIFIED 02-23-2017 [facility] OSTEOARTHRI TIS UNSPECIFIED SITE M5136 OT 02-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 M545 LOW BACK 02-15-2017 [facility] PAIN [facility]THOP[facility]EDIC S PSC N9489 OTH COND 02-14-2017 [facility] GEN ORGN & INC MENSTRUAL CYCL R0602 SHORTNESS 02-14-2017 [facility] [place] [place] [facility] BRE[facility] R072 PRECORDIAL 02-14-2017 [facility] PAIN [facility] INC R0789 OTHER CHEST 02-14-2017 [facility] [place] [place] PAIN MEDICAL IM[facility]ING ASS R102 PELVIC AND 02-14-2017 [facility] [place] [place] PERINEAL MEDICAL PAIN IMAGING ASS I2510 [facility] [place] 02-08-2017 [facility] CORONARY LAR & SLEEP ARTERY W/O CONSU ANGINA PECTORIS I6523 OCCLUSION & 02-08-2017 [facility] STENOSIS LAR & SLEEP BILATERAL CONSU CAROTID ARTERIES J438 OTHER 02-08-2017 [facility] EMPHYSEMA LAR & SLEEP CONSU R2243 LOC 02-08-2017 [facility] SWELLING LAR & SLEEP MASS & LUMP CONSU LOWER LIMB BILATERAL Z58516 ENCOUNTER 02-07-2017 [facility] SHIFT SUPERINTENDENT EXAM PHYSICIANS GENERAL RTN GROUP W/O ABNORMAL FIND Z124 ENCOUNTER 02-07-2017 [facility] SCREENING MALIG NEOPLASM CERVIX R079 CHEST PAIN 02-06-2017 [facility] V63989 PAIN IN 01-29-2017 [facility] HELMS RIGHT LEG CONSULTING SRV J41966 PAIN IN 01-29-2017 [facility] HELMS LEFT LEG CONSULTING SRV 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 BILATERAL UPPER LIMBS [...] LOCALIZED 10-31-2016 [facility] L97551 OTHER 10-05-2016 [facility] SPASM SOLUTIONS [...] W/DIAB IN MONONEUROPA THY J189 PNEUMONIA 08-23-2016 [facility] UNSPECIFIED MEDICAL ORGANISM IMAGING ASS J90 PLEURAL 08-23-2016 [facility] EFFUSION MEDICAL NOT IMAGING ASS ELSEWHERE CLASSIFIED R918 OTHER 08-23-2016 [facility] NONSPECIFIC MEDICAL ABNORMAL IMAGING ASS FINDING OF LUNG FIELD J441 CHRONIC 08-22-2016 [facility] P DZ W/EXACERBAT ION Z720 TOBACCO USE 08-22-2016 [facility] P R0902 HYPOXEMIA 08-21-2016 [facility] J0140 ACUTE 08-19-2016 [facility] INC UNSPECIFIED R05 COUGH 08-19-2016 [facility] R42 DIZZINESS 08-19-2016 [facility] AND MEDICAL GIDDINESS IMAGING ASS R531 WEAKNESS 08-19-2016 [facility] I9589 OTHER 07-31-2016 [facility] HYPOTENSION HEALTH SOLUTIONS IN I340 NONRHEUMATI 07-25-2016 [facility] VALVE [facility] INSUFFICIEN CY I471 SUPRAVENTRI 07-25-2016 [facility] L2081 ATOPIC 03-14-2016 [facility] NEURODERMAT [facility] ITIS URGENT TREAT L500 ALLERGIC 03-14-2016 [facility] URTICARIA [facility] URGENT TREAT L0889 OT SPEC 02-24-2016 [facility] INFECTIONS URGENT THE SKIN & TREAT SUBQ TISSUE M6240 CONTRACTURE 01-11-2016 [facility] UNSPECIFIED HOLDINGS SITE N11714 SPONDYLOSIS 01-10-2016 LAURA HENDRICKSON, W/O , PSC MYELOPATH/R ADICULOPATH Y LUMB RGN M5126 OTH 01-10-2016 LISANDRO SERNA MD, PSC RAL DISC DISPLACEMEN T LUMBAR RGN M797 FIBROMYALGI 01-10-2016 Ryann SERNA MD, PSC W45057 PAIN IN 12-13-2015 [facility] RIGHT KNEE HAI HOLDINGS U99888 PAIN IN 12-13-2015 [facility] LEFT KNEE HAI HOLDINGS M7981 NONTRAUMATI 12-07-2015 [facility] OF SOFT INC TISSUE M5022 OTH CERV 10-21-2015 [facility] DISC MEDICAL DISPLACEMEN IMAGING ASS T MID-CERVICA L REGION M5403 PANNICULITI 10-21-2015 [facility] S AFFCT MEM HOSP REGIONS INC NECK & BACK CT REGION M542 CERVICALGIA 10-21-2015 [facility] M533 SACROCOCCYG 08-31-2015 [facility] EAL MEDICAL DISORDERS IMAGING ASS NEC R1032 LEFT LOWER 08-31-2015 [facility] QUADRANT MEDICAL PAIN IMAGING ASS C36046 MUSCLE 08-19-2015 [facility] SPASM OF [facility] BACK URGENT TREAT T1490 INJURY 08-19-2015 [facility] UNSPECIFIED [facility] URGENT TREAT M791 MYALGIA 07-26-2015 LAURA HENDRICKSON MD, PSC J028 ACUTE 07-12-2015 [place] PHARYNGITIS [facility] DUE TO URGENT OTHER SPEC TREAT ORGANISMS J101 FLU D/T OTH 07-12-2015 [facility] ID FLU [facility] VIRUS OTH URGENT RESP TREAT MANIFESTATI ONS J208 ACUTE 06-21-2015 [facility] BRONCHITIS [facility] DUE TO URGENT OTHER SPEC TREAT ORGANISMS R21 RASH AND 06-21-2015 [place] OTHER [facility] NONSPECIFIC URGENT SKIN TREAT ERUPTION A36706 ACUTE 04-08-2015 [place] SUPPURATIVE [facility] OM W/O URGENT RUPT EAR TREAT DRUM LT EAR H9202 OTALGIA 04-08-2015 [facility] LEFT [place] URGENT TREAT J302 OTHER 04-08-2015 [facility] SEASONAL [facility] ALLERGIC URGENT RHINITIS TREAT K30 FUNCTIONAL 03-23-2015 [facility] DYSPEPSIA MOUNT JOSÉ K310 ACUTE 03-23-2015 [facility] DILATATION MOUNT OF STOMACH JOSÉ R140 ABDOMINAL 03-23-2015 [facility] [place] [facility] GASEOUS R935 ABN FIND DX 03-23-2015 [facility] IMAG OTH MOUNT ABD REGIONS JOSÉ RETROPERITO NEUM 62534 SLOW 02-22-2015 [place] TRANSIT [facility] CONSTIPATIO URGENT N TREAT 88218 DIAB W/O 02-17-2015 [facility] COMP TYPE [facility] II/UNS NOT URGENT STATED TREAT [facility] 31422 GENERALIZED 02-17-2015 [facility] ANXIETY [facility] DISORDER URGENT TREAT 5609 UNSPECIFIED 02-17-2015 [facility] INTESTINAL [facility] URGENT OBSTRUCTION TREAT 4610 ACUTE 01-28-2015 [facility] MAXILLARY [facility] SINUSITIS URGENT TREAT 74508 ASTHMA, 01-28-2015 [facility] UNSPECIFIED INC , UNSPECIFIED STATUS 496 CHRONIC 01-28-2015 [facility] INC OBSTRUCTION NEC 7291 UNSPECIFIED 01-28-2015 [facility] MYALGIA [facility] AND URGENT MYOSITIS TREAT 7821 RASH AND 01-28-2015 [facility] OTHER [facility] NONSPECIFIC URGENT SKIN TREAT ERUPTION 5368 DYSPEPSIA&O 01-25-2015 [facility] [place] THER SPEC RADIOLOGY DISORDERS FUNCTION STOMACH 27580 DIVERTICULO 01-25-2015 [facility] COLON JOSÉ 03466 EFFUSION OF 01-16-2015 [facility] ANKLE AND [facility] FOOT JOINT URGENT TREAT 04023 PAIN IN 01-16-2015 [facility] JOINT, [facility] SHOULDER URGENT REGION TREAT 85665 EXTRINSIC 12-31-2014 [facility] ASTHMA WITH COUNTY STATUS URGENT ASTHMATICUS TREAT 21441 ACUT 12-28-2014 [facility] SUPPRATV [facility] OTITIS URGENT MEDIA W/O TREAT SPONT RUP EARDRUM 462 ACUTE 12-28-2014 [facility] PHARYNGITIS [facility] URGENT TREAT 67566 ABDOMINAL 12-18-2014 [facility] PAIN, MEDICAL UNSPECIFIED IMAGING ASS SITE 4400 ATHEROSCLER 12-15-2014 [facility] OSIS OF [facility] AORTA URGENT TREAT 5589 OTH&UNSPEC 12-14-2014 [facility] NONINFECTIO MEM HOSP US INC GASTROENTER ITIS&COLITI S 00383 NAUSEA WITH 12-14-2014 [facility] VOMITING MEDICAL IMAGING ASS 23180 NAUSEA 12-14-2014 [facility] [place] [place] ALONE MEDICAL IMAGING ASS 49766 ABDOMINAL 12-14-2014 [facility] PAIN OTHER MEDICAL SPECIFIED IMAGING ASS SITE 83143 DIAB W/O 11-26-2014 [facility] TYPE I STATES [JUV] NOT MEDICAL STATED SUPPLY [facility] 59714 BENIGN 11-12-2014 [facility] PAROXYSMAL [facility] POSITIONAL URGENT VERTIGO TREAT 07942 ACUT PEPTC 11-12-2014 [facility] ULCR UNS [facility] SITE W/O URGENT HEMOR TREAT PERF/OBST 7881 DYSURIA 11-12-2014 [facility] URGENT TREAT 4660 ACUTE 10-24-2014 [facility] BRONCHITIS [facility] URGENT TREAT 55505 WHEEZING 10-24-2014 [facility] URGENT TREAT 36448 OTOGENIC 10-19-2014 [facility] PAIN [facility] URGENT TREAT 4011 ESSENTIAL 10-19-2014 [facility] HYPERTENSIO [facility] N, BENIGN URGENT TREAT 4619 ACUTE 10-19-2014 [facility] SINUSITIS, [facility] UNSPECIFIED URGENT TREAT 7862 COUGH 10-19-2014 [facility] URGENT TREAT 9953 ALLERGY 10-19-2014 [facility] NOT URGENT ELSEWHERE TREAT CLASSIFIED 00762 OBSTRUCTIVE 09-23-2014 [employer] SLEEP APNEA 2724 OTHER AND 09-21-2014 [facility] UNSPECIFIED [facility] URGENT HYPERLIPIDE TREAT NELL 4770 ALLERGIC 09-21-2014 [facility] RHINITIS [facility] DUE TO URGENT POLLEN TREAT 90343 ACUT PEPTC 09-21-2014 [facility] UNS COUNTY SITE W/HEM URGENT W/O MENTION TREAT OBST 2851 ACUTE 09-14-2014 [facility] POSTHEMORRH [facility] AGIC ANEMIA URGENT TREAT 59441 ACUTE 09-14-2014 [facility] GASTRITIS [facility] WITHOUT URGENT MENTION OF TREAT HEMORRHAGE 54321 LEUKOCYTOSI 09-05-2014 [facility] S PHYSICIANS UNSPECIFIED GROUP 60970 ATROPHIC 09-05-2014 [facility] GASTRITIS HIPOLITO & WITHOUT DUBILIER MENTION OF HEMORRHAGE 30964 UNS 09-05-2014 [facility] GASTRITIS&G PHYSICIANS ASTRODUODIT GROUP IS W/O MENTION HEMORR 56918 DUODENITIS 09-05-2014 [facility] WITHOUT PHYSICIANS MENTION OF GROUP HEMORRHAGE 90505 OTHER 09-05-2014 [facility] SPECIFIED MEDICAL DISORDER OF IMAGING ASS INTESTINES 5718 OTHER 09-05-2014 [facility] CHRONIC MEDICAL NONALCOHOLI IMAGING ASS C LIVER DISEASE 24107 ABDOMINAL 09-05-2014 [facility] PAIN, MEDICAL EPIGASTRIC IMAGING ASS 47407 HELICOBACTE 09-04-2014 [facility] INFECTION HOSPITAL P 65982 UNSPECIFIED 09-04-2014 [facility] ESOPHAGITIS HOSPITAL P 88755 ACUTE 09-04-2014 [facility] WITH HOSPITAL P HEMORRHAGE 5533 DIAPHRAGMAT 09-04-2014 [facility] [place] W/O [facility] P OBSTRUCTION /GANGREN 2449 UNSPECIFIED 09-02-2014 [facility]YPOTHY[facility] CLI ISM 2722 MIXED 09-02-2014 [facility] HYPERLIPIDE PRIMARY NELL CARE CLI 91041 NONSPECIFIC 09-02-2014 [facility] ABNORMAL N EMERGENCY ELECTROCARD SERVI IOGRAM 38058 OBST 08-22-2014 [facility] CHRONIC N EMERGENCY BRONCHITIS PHYS W/ACUTE BRONCHITIS 80552 CHEST PAIN 08-22-2014 [facility] [place] UNSPECIFIED RADIOLOGY 4019 UNSPECIFIED 08-21-2014 [facility] ESSENTIAL PRIMARY HYPERTENSIO CARE CLI N 87466 CORONARY 08-05-2014 [facility] [place] CORONARY ARTERY 65615 CIRCADIAN 07-31-2014 GU[facility] LOZANO MD SLEEP CONSULTING DISORDER SERV UNSPECIFIED 85305 GEN 07-23-2014 [facility] OSTEOARTHRO PRIMARY SIS CARE CLI INVOLVING MULTIPLE SITES 2720 PURE 07-06-2014 GU[facility]ERO MANN MD TEROLEMIA CONSULTING SERV 7295 PAIN IN 07-06-2014 [facility] FARRELL MD TISSUES OF CONSULTING LIMB SRV 7823 EDEMA 07-06-2014 GU[facility] HELMS [place] CONS[place]ING SRV 48901 SHORTNESS 07-06-2014 [facility] [address]2076 PRECORDIAL 07-06-2014 [facility] PAIN [facility] 2723 HYPERCHYLOM 06-30-2014 [facility] ICRONEMIA [facility] 7197 DIFFICULTY 06-30-2014 [place] [facility] WALKING [facility] 39150 PAINFUL 05-26-2014 [facility] PRIMARY CARE CLI 2689 UNSPECIFIED 12-22-2011 [facility], VITAMIN D GRAPHIC PRE PRESS TRADES [facility] [address] OBESITY, 12-22-2011 [facility], UNSPECIFIED GRAPHIC PRE [facility] [place] [address] COR 12-22-2011 [facility] ATHEROSLERO UNSPEC TYPE VESSEL [place]/PIERCE T 5693 HEMORRHAGE 11-10-2011 [facility] OF RECTUM AND ANUS 5990 URINARY 11-10-2011 [facility] TRACT INFECTION SITE NOT SPECIFIED 7873 FLATULENCE 11-10-2011 [facility] ERUCTATION AND GAS PAIN V6709 FOLLOW-UP 08-25-2011 [facility] FOLLOWING ASSOCIAT OTHER SURGERY 31808 OTHER 08-24-2011 [facility] MALAISE AND FATIGUE 2469 UNSPECIFIED 08-19-2011 [facility] GIAN DISORDER OF THYROID 37554 DIAB 08-19-2011 [facility] GIAN W/NEURO MANIFESTS TYPE II/UNS NOT UN[facility]L 6826 CELLULITIS 08-19-2011 [facility] GIAN AND ABSCESS OF LEG EXCEPT FOOT 02913 AC LEANNE 08-16-2011 LINDA JIL EMBO & THROMB UNSPEC DEEP VES LOWER EXT 47360 OTHER 08-16-2011 [facility] DISEASES OF RADIOLOGY LUNG NOT ASSOCIAT ELSEWHERE CLASSIFIED 7231 CERVICALGIA 08-16-2011 [facility], [facility] PRE [facility] [place] [facility] [address]236 UNSPECIFIED 08-11-2011 [facility] ARTHROPATHY SITE UNSPECIFIED 7802 SYNCOPE AND 08-01-2011 [facility] COLLAPSE [facility] 7804 DIZZINESS 08-01-2011 [facility] AND [facility] 7820 DISTURBANCE 08-01-2011 HELMS GUERRERO OF SKIN SENSATION 84812 OCCLUSION&S 07-19-2011 HELMS GUERRERO TENOS CAROTID ART W/O MENTION INFARCT 41436 OTHER 07-07-2011 [facility] DISEASES OF RADIOLOGY SPLEEN ASSOCIAT 5531 UMB HERNIA 07-07-2011 [facility] WITHOUT RADIOLOGY MENTION ASSOCIAT OBSTRUCTION /GANGRENE E8889 UNSPECIFIED 07-06-2011 [facility] ASSOCIAT 97726 OBSTRUCTIVE 06-26-2011 AH[facility] ADN CHRONIC BRONCHITIS WITH EXACERBATIO N 71728 OSTEOARTHRO 06-26-2011 [facility], SIS UNSPEC GRAPHIC PRE PRESS TRADES WORKER WHETHER [facility] GEN/LOC HOS LOWER LEG 7202 SACROILIITI 06-26-2011 [facility], S NOT GRAPHIC PRE PRESS TRADES WORKER ELSEWHERE [facility] CLASSIFIED HOS V571 OTHER 06-26-2011 [facility], PHYSICAL GRAPHIC PRE PRESS TRADES WORKER THERAPY [facility] HOS 1320 PEDICULUS 05-31-2011 [place] [address] DEGEN 05-15-2011 [facility] LUMBAR/LUMB RADIOLOGY OSACRAL ASSOCIAT INTERVERTEB RAL DISC 7242 LUMBAGO 05-15-2011 [facility] HOSPITAL 69494 OSTEOARTHRO 05-12-2011 BELÉ[facility] KENDALL S INVLV MX SITES BUT NOT SPEC GEN V5883 ENCOUNTER 05-12-2011 BELÉ[facility] KENDALL FOR THERAPEUTIC DRUG MONITORING 70609 ANAL OR 03-28-2011 [facility] RECTAL PAIN [facility] V5869 LONG-TERM 03-28-2011 [facility] (CURRENT) HOSPITAL USE OF OTHER MEDICATIONS 2113 BENIGN 03-15-2011 [facility] NEOPLASM OF HOSPITAL COLON 4556 UNSPEC 03-15-2011 [facility] HEMORR[facility]IDS [facility]PITAL WITHOUT MENTION COMPLICATIO N 5690 ANAL AND 03-15-2011 [facility] [place] [facility] POLYP 5781 BLOOD IN 02-21-2011 [facility] STOOL HOSP 56876 OTHER 02-21-2011 [facility] DYSPNEA AND HOSPITAL RESPIRATORY ABNORMALITI ES 7851 PALPITATION 01-19-2011 GUERRERO Walsh [place] SRV 47214 SWELLING OF 01-18-2011 [facility] [place] [facility]Y ASSOCIAT 96610 HYPERSOMNIA 01-13-2011 GUERRERO HELMS MD UNSPECIFIED CONSULTING SRV 46644 OTHER CHEST 01-13-2011 GUERRERO SIMPSON MD CONSULTING [...] 50 11 11 FA JA 0- 0 RI NA 50 LY R DI SK UG US AV 00 10 10 0 7. 7 SO 38 GA Ac EL 08 -2 -2 00 PE 79 NT ti OX 51 5- 5- 0 RS 81 LE ve 73 20 20 Y 40 30 11 11 FA JA 0 1 RI NA MG LY R TA DR BL UG ET 59 10 10 5 8. 15 SO 38 GA Ac 31 -2 -2 50 PE 79 NT ti 00 5- 5- 0 RS 82 LE ve 57 20 20 Y 92 11 11 FA JA 0 RI NA LY R DR UG 00 10 10 3 24 2 SO 38 GA Ac 12 -2 -2 0. PE 79 NT ti 10 5- 5- 00 RS 83 LE ve 74 20 20 0 Y 40 11 11 FA JA 4 RI NA LY R DR UG PI 00 10 10 3 30 30 SO 38 GA Ac RO 09 -2 -2 .0 PE 80 NT ti XI 30 5- 5- 00 RS 21 LE ve CA 75 20 20 Y M 60 11 11 FA JA 10 1 RI NA LY R MG DR CA UG PS UL E OX 00 10 10 0 10 2 SO 38 GA Ac YC 60 -2 -2 .0 PE 80 NT ti OD 34 5- 5- 00 RS 30 LE ve ON 99 20 20 Y E- 82 11 11 FA JA AC 8 RI NA ET LY R AM IN DR OP UG HE N 5- 32 5 DI 00 10 10 3 60 30 SO 38 AH Ac LT 37 -2 -2 .0 PE 78 ME ti IA 80 4- 4- 00 RS 78 D ve ZE 52 20 20 AD M 50 11 11 FA NA 12 1 RI N [address] TA UG BL ET AL 59 10 10 0 60 30 SO 38 AH Ac WA 76 -2 -2 .0 PE 78 ME ti AZ 23 4- 4- 00 RS 77 D ve OL 72 20 20 AD AM 10 11 11 FA NA 1 3 RI N LY MG DR ILYA HORNE BL ET NE 61 10 10 0 10 7 SO 38 AH Ac OM 31 -1 -1 .0 PE 68 ME ti YC 40 2- 2- 00 RS 11 D ve IN 64 20 20 AD -P 61 11 11 FA NA OL 0 RI N YM LY YX IN DR Primitivo HORNE C EA R SO LN OX 00 10 10 0 20 3 SO 38 KE Ac YC 60 -1 -1 .0 PE 68 AR ti OD 34 2- 2- 00 RS 12 NS ve ON 99 20 20 E- 82 11 11 FA LA AC 8 RI RI ET LY EN AM D IN DR CRANE HE N 5- 32 5 OS 65 09 09 0 32 1 SO 38 KE Ac MO 64 -2 -2 .0 PE 50 AR ti WA 90 3- 3- 00 RS 06 NS ve EP 70 20 20 14 11 11 FA LA TA 1 RI RI BL LY EN ET D DR HORNE 00 09 09 0 40 5 SO 38 GA Ac 59 -2 -2 .0 PE 50 NT ti 10 3- 3- 00 RS 12 LE ve 34 20 20 Y 90 11 11 FA JA 5 RI NA LY R UG AD 00 09 09 2 60 30 SO 38 GA Ac VA 17 -2 -2 .0 PE 46 NT ti IR 30 0- 0- 00 RS 18 LE ve 69 20 20 Y 10 50 11 11 FA JA 0- 0 RI NA 50 LY R DI SK UG US 00 09 09 4 30 30 SO 38 GA Ac 14 -1 -1 .0 PE 44 NT ti 31 9- 9- 00 RS 76 LE ve 25 20 20 Y 61 11 11 FA JA 0 RI NA LY R DR UG AL 59 09 09 0 60 30 SO 38 GA Ac WA 76 -1 -1 .0 PE 44 NT ti AZ 23 9- 9- 00 RS 74 LE ve OL 72 20 20 Y AM 10 11 11 FA JA 1 3 RI NA LY R MG DR CARABALLO UG [...] 25 10 MG 11 40 TA B WA 64 09 09 2 30 7 SO 38 GA Ac OC 98 -0 -0 .0 PE 33 NT ti TO 00 6- 6- 00 RS 95 LE ve ZO 30 20 20 Y NE 13 11 11 FA JA -H 0 RI NA C LY R 2. 5% DR UG CR EA M 00 09 09 0 15 5 SO 38 GA Ac 14 -0 -0 .0 PE 34 NT ti 31 6- 6- 00 RS 02 LE ve 47 20 20 Y 70 11 11 FA JA 1 RI NA LY R DR UG 00 09 09 0 40 10 SO 38 GA Ac 07 -0 -0 .0 PE 34 NT ti 46 6- 6- 00 RS 01 LE ve 30 20 20 Y 41 11 11 FA JA 3 RI NA LY R DR UG CE 68 09 09 0 40 10 SO 38 GA Ac PH 18 -0 -0 .0 PE 34 NT ti AL 00 6- 6- 00 RS 00 LE ve EX 12 20 20 Y IN 20 11 11 FA JA 2 RI NA 50 LY R [address] UG CA PS UL E AL 59 09 09 0 60 30 SO 38 GA Ac WA 76 -0 -0 .0 PE 33 NT ti AZ 23 6- 6- 00 RS 99 LE ve OL 72 20 20 Y AM 00 11 11 FA JA 3 RI NA 0. LY R [address] UG TA BL ET FL 00 09 09 2 16 30 SO 38 GA Ac UT 05 -0 -0 .0 PE 33 NT ti IC 43 6- 6- 00 RS 98 LE ve 27 20 20 Y ON 09 11 11 FA JA E 9 RI NA WA LY R OP DR 50 UG MC G SP RA Y 59 09 09 2 8. 15 SO 38 GA Ac 31 -0 -0 50 PE 33 NT ti 00 6- 6- 0 RS 96 LE ve 57 20 20 Y 92 11 11 FA JA 0 RI NA LY R DR COLEEN DI 00 08 08 1 60 30 SO 38 GA Ac LT 37 -2 -2 .0 PE 25 NT ti IA 80 6- 6- 00 RS 68 LE ve ZE 52 20 20 Y M 50 11 11 FA JA 12 1 RI NA [address] ILYA UG BL ET LE 00 08 08 6 30 30 SO 38 CO Ac VO 52 -1 -1 .0 PE 16 MB ti TH 71 8- 8- 00 RS 96 S ve YR 34 20 20 PA OX 11 11 11 FA ME IN 0 RI LA E LY A 25 DR ESTIVEN UG G TA BL ET AL 00 08 08 0 60 30 WA 44 GA Ac WA 37 -0 -0 .0 L- 95 NT [...] 41 08 08 FA la HE 0 RI bl N- LY e CO D DR #3 UG TA BL ET 60 02 03 00 24 12 SO 27 No Ac 25 -1 -2 0. PE 61 t ti 80 4- 6- 00 RS 34 Av ve 23 20 20 0 ai 91 08 08 FA la 6 RI bl LY e DR UG CI 55 02 03 00 20 10 SO 27 No Ac WA 11 -1 -2 .0 PE 61 t ti OF 10 4- 6- 00 RS 33 Av ve LO 12 20 20 ai XA 70 08 08 FA la CI 1 RI bl N LY e HC L DR 50 UG 0 MG TA B AC 00 02 03 00 20 5 SO 27 No Ac ET 40 -1 -2 .0 PE 61 t ti AM 60 4- 6- 00 RS 36 Av ve IN 48 20 20 ai OP 41 08 08 FA la HE 0 RI bl N- LY e CO D DR [...] NON-CP U DOSE PER MG CATHETER C18[address] BASIC [address] [facility] METABOLIC [address] [place] [address] PANEL CALCIUM IONIZED GUIDE C1769 [facility] WIRE [address] [place] [address] INJECTION J3010 [facility] FENTANYL [address] [place] [address] CITRATE 0.1 MG BLOOD [address] HEMATOCRI T INJECTION J1644 [facility] HEPARIN [address] [place] [address] SODIUM PER 1000 UNITS INJECTION J2001 [address] LIDOCAINE HCL INTRAVENO US INFUS 10 MG CATH PLMT 48512 [facility] L HRT & [address] [place] [address] ARTS W/NJX & ANGIO IMG S&I BLOOD [address] [address] [facility] TRAN[facility] 7 MEDICAL NAL IMAGING ASS ADMN SET A7003 MED 4 MED 4 SM VOL 7 HOME INC HOME INC NONFILTR PNEUMAT NEBULIZR DISPBL RADIOLOGI 23690 IDAHO ARGUETA C EXAM 7 MEDICAL CHEST 2 [...] G0145 [facility] CYTOPATH 7 [facility] CERV/VAG SCR AUTO&MNL RSCR PHYS ANNUAL G0439 [facility] DRU WELLNESS 7 PHYSICIAN VST; S GROUP PERSONALI ZED PPS SUBSQT VST URNLS DIP 44663 [facility] DRU 7 PHYSICIAN STICK/TAB S GROUP LET RGNT NON-AUTO W/O MICRSCP CV STRS 72409 GUERRERO HELMS HELMS TST 7 MD XERS&/OR CONSULTIN RX CONT G SRV ECG I&R ONLY NONINVASI 74569 [facility] VE 7 [facility] EAR/PULSE HOSPITAL HOSPITAL OXIMETRY OVERNIGHT MONITOR COMPREHEN 24259 [facility] SIVE 7 [facility] PANEL CV STRS 66191 [facility] TST 7 [facility] XERS&/OR HOSPITAL HOSPITAL RX CONT ECG TRCG ONLY COLLECTIO 25162 [facility] N VENOUS 7 [facility] VENIPUNCT URE TECHNETIU A9500 [facility] M TC-99M 7 [facility] DX PER STUDY DOSE NATRIURET 33358 [facility] IC 7 [facility] BLOOD 92606 [facility] COUNT 7 [facility] AUTO&AUTO DIFRNTL WBC MYOCARDIA 78973 GUERRERO HELMS HELMS L SPECT 7 MULTIPLE CONSULTIN STUDIES G SRV NONINVASI 40034 GUERRERO HELMS HELMS VE 7 MD EAR/PULSE CONSULTIN OXIMETRY G SRV OVERNIGHT MONITOR MRI 61311 [facility] SPINAL 7 CANAL ORTHOPAED LUMBAR ICS PSC W/O CONTRAST MATERIAL DUP-SCAN 84633 GUERRERO HELMS WAESPE XTR VEINS 7 MD COMPLETE CONSULTIN G SRV BILATERAL STUDY ECG 15381 GUERRERO HELMS HELMS ROUTINE 7 MD ECG [...] NON-CP U DOSE PER MG FEDERALLY G0467 [place] [address] [facility] VISIT ESTAB PT PHRM Q0513 MED 4 MED 4 DISPENSIN 7 HOME INC HOME INC G FEE INHALATIO N RX; PER 30 DAYS FEDERALLY G0467 [place] [address] [facility] VISIT ESTAB PT IPRATROPI J7644 MED 4 MED 4 7 HOME INC HOME INC BROMIDE INHAL NON-CP U DOSE PER MG ALBUTEROL J7613 MED 4 MED 4 INHAL 7 HOME INC HOME INC NON-CP PROD THRU DME U DOSE 1 MG URNLS DIP 99331 [place] [address] HEALTH STICK/TAB SOLUTIONS LET RGNT IN AUTO W/O MICROSCOP Y FEDERALLY G0467 [place] [address] [facility] IN CENTER VISIT ESTAB PT PHRM Q0513 [...] INC NONFILTR NEBULIZR NON-DISPB L FEDERALLY G0467 [place] [address] [facility]ot[facility]ical [facility] IN CENTER VISIT ESTAB PT CONTINUOU E0601 BENJIE WALDROP S 7 HOME HOME POSITIVE MEDICAL MEDICAL AIRWAY EQUIPME EQUIPME PRESSURE DEVICE HUMDIFIR E0562 BENJIE WALDROP HEATED 7 HOME HOME USED MEDICAL MEDICAL W/POS EQUIPME EQUIPME ARWAY PRESSURE DEVICE FEDERALLY G0467 [place] [address] Remotemedical [facility] IN CENTER VISIT ESTAB PT DETERMINA 66828 FABRICE SCIFRIVONNE TION 7 [facility]ISION REFRACTIV CENTER E STATE OPH [address] [place] [address] VISION VISION XM&EVAL CENTER CENTER COMPRE NEW [...] INC W/POSITIV E AIRWAY PRESSURE DEVICE COLLECTIO 80558 [facility] VENOUS 7 [place] [address] LAB DECLAN LAB DECLAN THYROID 7 [facility]I [facility] STIMULATI [facility] NG HORMONE TSH COMPREHEN 99995 LAB DECLAN LAB DECLAN SIVE 7 HAI [facility]I METABOLIC [facility] PANEL HEMOGLOBI 13490 LAB DECLAN LAB DECLAN N 7 HAI HAI GLYCOSYLA [facility] HOLD[facility] SAE A1C LIPID 37760 LAB DECLAN LAB DECLAN PANEL 7 [facility] HOLDINGS HOLDINGS FEDERALLY G0467 [place] [address] Remotemedical [facility] IN CENTER VISIT ESTAB PT BLOOD 90623 LAB DECLAN LAB DECLAN COUNT 7 [facility] COMPLETE HOLDINGS HOLDINGS AUTO&AUTO DIFRNTL WBC FEDERALLY G[address] Physicians Formula [facility] IN CENTER VISIT ESTAB PT CT THORAX 07837 IDAHO ARGUETA 7 MEDICAL W/CONTRAS IMAGING T ASS MATERIAL RADIOLOGI 94569 IDAHO SHASHA C EXAM 7 MEDICAL CHEST 2 IMAGING VIEWS ASS FRONTAL&L ATERAL ECG 67044 EMMY KRAUS ROUTINE 7 [facility] W/LEAST P 12 LDS I&R ONLY RADIOLOGI 64377 [facility] C EXAM 7 MEDICAL CHEST 2 IMAGING VIEWS ASS FRONTAL&L ATERAL RADIOLOGI 58367 [facility] C EXAM 7 MEDICAL CHEST 2 IMAGING VIEWS ASS FRONTAL&[place] [address] [facility] HEAD/BRAI 7 MEDICAL N W/O IMAGING [...] INHAL NON-CP U DOSE PER MG NEEDLE 99056 EMMY BOOTH EMG EA 7 [facility] EXTREMTY INC INC W/PARASPI NL AREA COMPLETE NERVE 88276 EMMY BOOTH CONDUCTIO 7 [facility] N STUDIES INC INC 3-4 STUDIES FEDERALLY G[address] [employer] HEALTH IN CENTER VISIT ESTAB PT MYOCARDIA 27640 GAMAL YEUNG L SPECT 7 [facility] STUDIES CV STRS 18758 [facility] TST 7 [facility] XERS&/OR HOSPITAL HOSPITAL RX CONT ECG TRCG ONLY TECHNETIU A9500 GAMAL YEUNG M TC-99M 7 [facility] DX PER STUDY DOSE NONINVASI 57119 [facility] VE 7 [facility] EAR/PULSE HOSPITAL HOSPITAL OXIMETRY OVERNIGHT MONITOR CV STRS 96648 GUERRERO SCOOTER CHURCH TST 7 MD XERS&/OR CONSULTIN RX CONT G SRV ECG I&R ONLY ECHO 75253 GUERRERO HELMS HELMS TTHRC R-T 7 MD 2D CONSULTIN W/WOM-MOD G SRV E COMPL SPEC&COLR D ECG 93465 GUERRERO HELMS RANJIT ROUTINE 7 MD ECG [...] INC NONFIL[place] [address] LAB DECLAN LAB DECLAN MAGNESIUM 6 HAI HAI [facility] POTASSIUM 14415 LAB DECLAN LAB DECLAN SERUM 6 HAI [...] INC INC POSITIVE AIRWAY PRESSURE DEVICE RHEUMATOI 59932 LAB DECLAN LAB DECLAN D FACTOR 6 AHI HAI QUANTITAT [facility] SATHISH COMPREHEN 18524 LAB DECLAN LAB DECLAN SIVE 6 HAI HAI METABOLIC [facility] PANEL EXTRACTAB 07686 LAB DECLAN LAB DECLAN LE 6 HAI [...] INHALATIO N RX; PER 30 DAYS DUP-SCAN 11916 IDAHO ARGUETA ALL XTR VEINS 6 MEDICAL IMAGING [...] SUPPLY SUPPLY GLU MON-50 NORMAL A4256 UNITED CLARINDA LOW AND [address] [place] [address] HIGH MEDICAL MEDICAL CALIBRATO SUPPLY SUPPLY R SOLUTION/ CHIPS LANCETS A4259 UNITED CLARINDA PER BOX [address] [place] [address] MEDICAL MEDICAL SUPPLY SUPPLY NEBULIZER E0570 MED 4 MED 4 WITH 6 HOME INC HOME INC COMPRESSO R MRI 41953 EMMY BOOTH SPINAL 6 [facility] CANAL INC INC CERVICAL W/O CONTRAST MATRL 3D 59139 EMMY EMMY RENDERING 6 [facility] W/INTERP INC INC & POSTPROCE SS SUPERVISI ON MRI 10407 EMMY BOOTH SPINAL 6 [facility] CANAL INC INC LUMBAR W/O CONTRAST [...] HOME INC HOME INC COMPRESSO R COLLECTIO 55808 EMMY BOOTH N VENOUS 6 [facility] BLOOD INC INC VENIPUNCT URE RADEX 70458 EMMY BOOTH SACRUM & 6 [facility] COCCYX INC INC MINIMUM 2 VIEWS CREATININ 93288 EMMY BOOTH E BLOOD 6 [place] [address] [facility] ABDOMEN & 6 MEDICAL KURT PELVIS IMAGING W/[place] [address] EMMY BOOTH UREA 6 [facility] NITROGEN INC INC QUANTITAT SATHISH LOCM Q9967 EMMY BOOTH 300-399 6 [facility] MG/ML INC INC IODINE CONCENTRA TION PER ML REPL JACKELIN A4233 UNITED UNITED ALKALINE 6 STATES STATES NOT J MEDICAL MEDICAL CELL AMINATA SUPPLY SUPPLY BG MON OWND PT SPRING-PO A4258 UNITED UNITED WERED 6 [facility] STATES DEVICE MEDICAL MEDICAL FOR SUPPLY SUPPLY LANCET EACH LANCETS A4259 UNITED UNITED PER BOX [address] [facility] MEDICAL MEDICAL SUPPLY SUPPLY NORMAL A4256 UNITED UNITED LOW AND 6 [facility] STATES HIGH MEDICAL MEDICAL CALIBRATO SUPPLY SUPPLY R SOLUTION/ CHIPS BLD GLU A4253 UNITED UNITED TEST/REAG 6 [facility] STATES T STRIPS MEDICAL MEDICAL HOME [...] INC HOME INC COMPRESSO R TECHNETIU A9541 [facility] TC-99M 5 [facility] COLLOID DX UP TO 20 MCI GASTRIC 39078 [facility] EMPTYING 5 [facility] STUDY ALBUTEROL J7613 MED 4 MED [...] DME U DOSE 1 MG INJECTION A9579 [facility] 5 [facility] BASED MR CONTRAST NOS ML MRI 78612 [facility] [place] CHRIST[place] MAT ABDOMEN 5 RADIOLOGY W/O & W/CONTRAS T MATERIAL CREATININ 45097 [facility] E BLOOD 5 [facility] COLLECTIO 40316 [facility] N VENOUS 5 [facility] VENIPUNCT URE COLLECTIO 21213 [facility] N VENOUS 5 [facility] VENIPUNCT URE SEDIMENTA 31179 [facility] TION RATE 5 [facility] AUTOMATED C-REACTIV 15341 [facility] E PROTEIN 5 [facility] ADMN SET A7005 MED 4 MED 4 [...] HOME INC HOME INC DME NEB RADEX 05211 EMMY BOOTH SMALL 5 [facility] INTESTINE INC INC [place] [address] EMMY BOOTH AMYLASE 5 [facility] INC INC COMPREHEN 63063 EMMY BOOTH SIVE 5 [facility] METABOLIC INC INC PANEL URNLS DIP 09224 EMMY BOOTH 5 [facility] STICK/TAB INC INC LET REAGENT AUTO MICROSCOP Y INJECTION J2405 EMMY BOOTH 5 [facility] ONDANSETR INC INC ON HCL PER 1 [place] [address] EMMY BOOTH LIPASE 5 [facility] INC INC THER 26263 EMMY BOOTH PROPH/DX 5 [facility] NJX IV INC INC PUSH SINGLE/1S T SBST/[place] [address] EMMY BOOTH ABDOMEN & 5 [facility] PELVIS INC INC W/O CONTRAST MATERIAL THERAPEUT 90142 EMMY BOOTH IC 5 [facility] INJECTION INC INC IV PUSH EACH NEW DRUG BLOOD 02838 EMMY BOOTH COUNT 5 [facility] COMPLETE INC INC AUTO&AUTO DIFRNTL WBC SPRING-PO A4258 UNITED UNITED WERED 5 STATES STATES DEVICE MEDICAL MEDICAL FOR SUPPLY SUPPLY LANCET EACH REPL JACKELIN A4233 UNITED CLARINDA ALKALINE 5 [facility] STATES NOT J MEDICAL MEDICAL CELL AMNIATA SUPPLY SUPPLY BG MON OWND PT BLOOD 95685 LEXI ESCOBEDO OCCULT 5 [facility] PEROXIDAS URGENT E ACTV TREAT QUAL FECES 1 DETER COLLECTIO 14971 LEXI ESCOBEDO N VENOUS 5 COUNTY NAN BLOOD URGENT VENIPUNCT TREAT URE BLOOD 66844 LAB DECLAN LAB DECLAN COUNT 5 HAI [...] INC [place]IT[place] [address] [facility] [place] SURG 5 HIPOLITO & EDGAR PATHOLOGY DUBILIER GROSS&CECY ROSCOPIC EXAM INITIAL 66170 [facility] 5 PHYSICIAN JIL CARE/DAY S GROUP 30 MINUTES ANES 60981 [facility] UPPER GI 5 ANESTH NIALL ENDOSCOPY OF THE PROXIMAL BLUE TO DUODENUM EGD 70308 [facility] ROGERIO JR TRANSORAL 5 PHYSICIAN JIL BIOPSY S GROUP SINGLE/MU LTIPLE SPECIAL 22289 [facility] STAIN 5 HIPOLITO & EDGAR GROUP 1 DUBILIER MICROORGA NISMS I&[place] [address] IDAHO SHASHA ABDOMEN & 5 MEDICAL OMAR PELVIS IMAGING W/O ASS CONTRAST MATERIAL RADEX 41700 IDAHO SHASHA ABDOMEN 5 MEDICAL OMAR COMPL IMAGING W/DCBTS&/ ASS ERC VIEWS RADEX ABD 59391 [facility] [place] JAYLEEN CHR COMPL 5 RADIOLOGY AQT ABD W/S/E/D V[place] [address] [place] [address] [facility] [place] FARIAS ABDOMEN & 5 RADIOLOGY RAY PELVIS W/CONTRAS T MATERIAL ECG 31614 [facility] ROUTINE 5 SHANNON AP ECG EMERGENCY W/LEAST PHYS 12 LDS [place] [address] MEANS BUTROS RETROPERI 5 ADULT JONNY TONEAL [...] HOME BLD SUPPLY SUPPLY GLU MON-50 RADIOLOGI 81570 [facility] [place] STEPHANY C EXAM 5 RADIOLOGY CAR CHEST 2 VIEWS FRONTAL&L ATERAL INJECTION J2001 [address] LIDOCAINE HCL INTRAVENO US INFUS 10 MG BLOOD [address] PLATELET AUTOMATED CATH PLMT 35940 [facility] HRT & [address] [place] [address] ARTS W/NJX & ANGIO IMG S&I GUIDE C17[address] INJECTION J3[address] CITRATE 0.1 MG BLOOD [address] HEMATOCRI T BASIC [address] PANEL CALCIUM IONIZED CLOSURE C1760 [facility] DEVICE [address] [place] [address] VASCULAR INTRDUCR/ C1894 [facility] SHEATH [address] [place] [address] NOT GUID INTRACARD EP NON-LASR INJECTION J2250 [address] [place] HCL PER 1 MG NASL A7034 BENJIE WALDROP INTRFCE 5 HOME HOME POS ARWAY MEDICAL MEDICAL PRSS EQUIPME EQUIPME DEVC W/WO HEAD STRAP COLLECTIO 81917 [facility] N VENOUS [address] [place] [address] VENIPUNCT URE BASIC 66114 [facility] METABOLIC [address] [place] [address] CALCIUM TOTAL BLD GLU A4253 ARRIVA ARRIVA TEST/REAG 5 MEDICAL MEDICAL T STRIPS HOME BLD GLU MON-50 LANCETS A4259 ARRIVA ARRIVA PER BOX 5 MEDICAL MEDICAL OF 100 NORMAL A4256 ARRIVA ARRIVA LOW AND 5 MEDICAL MEDICAL HIGH CALIBRATO R SOLUTION/ CHIPS BLOOD 88564 [facility] COUNT [address] [place] [address] AUTO&AUTO DIFRNTL WBC NATRIURET 72371 [facility] IC [address] [place] [address] HOSPITAL RADIOLOGI 54541 [facility] C EXAM [address] [place] [address] VIEWS FRONTAL&L ATERAL COLLECTIO 23931 [facility] N VENOUS [address] [place] [address] VENIPUNCT URE DUP-SCAN 79961 GUERRERO HELMS HELMS GUERRERO XTR VEINS 5 COMPLETE CONSULTIN G SRV BILATERAL STUDY ECG 43082 GUERRERO HELMS FOWLER ROUTINE 5 MD CAMPBELL ECG CONSULTIN W/LEAST G SERV 12 LDS W/I&R COMPREHEN 07805 [facility] SIVE [address] [place] [address] PANEL CV STRS 75344 GUERRERO HELMS HELMS GUERRERO TST 5 XERS&/OR CONSULTIN RX CONT G SRV ECG I&R ONLY NONINVASI 19944 [facility] VE [address] [place] [address] E[facility]ULSE [facility] HOSPITAL OXIMETRY OVERNIGHT MONITOR HEMOGLOBI 08555 GAMAL YEUNG N 5 [facility] SAE A1C CV STRS 91235 GAMAL YEUNG TST 5 [facility] XERS&/OR [facility] RX CONT ECG TRCG ONLY COLLECTIO 24112 GAMAL YEUNG N VENOUS 5 [facility] VENIPUNCT URE TECHNETIU A9500 GAMAL YEUNG M TC-99M 5 [facility] DX PER STUDY DOSE MYOCARDIA 14234 GAMAL YEUNG L SPECT 5 [facility] STUDIES ELIG CLIN G8427 MEANS BUTROS ATTSTS [...] INTERFACE REPLCMT FULL FACE MASK EA ECG 30329 GUERRERO HELMS HELMS GUERRERO ROUTINE 5 ECG [...] EQUIPME W/[place] [address] [facility], FREE 2 GRAPHIC PRE PRESS TRADES WORKER GRAPHIC PRE PRESS TRADES WORKER THYROXINE [place] [address] [facility] Moxsie [facility] INC, THYROID 2 GRAPHIC PRE PRESS TRADES WORKER GRAPHIC PRE PRESS TRADES WORKER STIMULATI LEXI BLACKMONS NG CO HOS CO HOS HORMONE TSH COMPREHEN 82720 [facility] BioCurity, [facility] INC, SIVE 2 GRAPHIC PRE PRESS TRADES WORKER GRAPHIC PRE PRESS TRADES WORKER METABOLIC LEXI LEXI PANEL CO HOS CO HOS COLLECTIO 12991 [facility] WORKS GEORGES N VENOUS 2 BLOOD VENIPUNCT URE 25 75575 [facility] BioCurity, [facility] INC, HYDROXY 2 GRAPHIC PRE PRESS TRADES WORKER GRAPHIC PRE PRESS TRADES WORKER INCLUDES LEXI [facility] FRACTIONS CO HOS CO HOS IF PERFORMED BLOOD 19098 [facility] INC, COUNT 2 GRAPHIC PRE PRESS TRADES WORKER GRAPHIC PRE PRESS TRADES WORKER COMPLETE LEXI LEXI AUTO&AUTO CO HOS CO HOS DIFRNTL WBC LIPID 74585 [facility], [facility], PANEL 2 GRAPHIC PRE PRESS TRADES WORKER GRAPHIC PRE PRESS TRADES WORKER LEXI LEXI CO HOS CO HOS ECG 74094 HELMS GUERRERO HELMS GUERRERO ROUTINE 2 ECG W/LEAST 12 LDS W/I&R LIPID 58203 [facility] Moxsie [facility] INC, PANEL 2 GRAPHIC PRE PRESS TRADES WORKER GRAPHIC PRE PRESS TRADES WORKER LEXI LEXI CO HOS CO HOS HEPATIC 10298 [facility]Curity, [facility] INC, FUNCTION 2 GRAPHIC PRE PRESS TRADES WORKER GRAPHIC PRE PRESS TRADES WORKER PANEL LEXI LEXI CO HOS CO HOS BLOOD 61358 [facility]Curity, [facility] INC, COUNT 2 GRAPHIC PRE PRESS TRADES WORKER GRAPHIC PRE PRESS TRADES WORKER COMPLETE LEXI LEXI AUTO&AUTO CO HOS CO HOS DIFRNTL WBC COLLECTIO 15607 WORKS GEORGES WORKS GEORGES N VENOUS 2 BLOOD VENIPUNCT URE COMPREHEN 18083 [facility] [employer], [facility] INC, SIVE 2 GRAPHIC PRE PRESS TRADES WORKER GRAPHIC PRE PRESS TRADES WORKER METABOLIC LEXI LEXI PANEL CO HOS CO HOS URNLS DIP 83430 WORKS GEORGES WORKS GEORGES 2 STICK/TAB LET RGNT NON-AUTO W/O MICRSCP BLOOD 00955 WORKS GEORGES WORKS GEORGES OCCULT 2 PEROXIDAS E ACTV QUAL FECES 1 DETER CONTINUOU E0601 BENJIE WALDROP S 2 HOME HOME POSITIVE MEDICAL MEDICAL AIRWAY EQUIPME EQUIPME PRESSURE DEVICE CONTINUOU E0601 BENJIE WALDROP S 2 HOME HOME POSITIVE MEDICAL MEDICAL AIRWAY EQUIPME EQUIPME PRESSURE DEVICE DUP-SCAN 96639 [place] [facility] ARTL JULISSA 2 EIDER CASIE ABDL/PEL/ RADIOLOGY SCROT&/RP ASSOCIAT R ORGN LMT RADIOLOGI 75786 [facility] C EXAM 2 EIKAHN CHEST 2 RADIOLOGY VIEWS ASSOCIAT FRONTAL&L ATERAL OBSERVATI 10131 WORKS GEORGES WORKS GEORGES ON/INPATI 2 ENT HOSPITAL CARE 50 MINUTES CONTINUOU E0601 BENJIE WALDROP S 2 HOME HOME POSITIVE MEDICAL MEDICAL AIRWAY EQUIPME EQUIPME PRESSURE DEVICE HOSPITAL 08122 [facility] DISCHARGE 2 GIAN GIAN DAY MANAGEMEN T > 30 MIN SBSQ 11162 [facility] GIAN GIAN CARE/DAY 35 MINUTES DUP-SCAN 88975 HELMS GUERRERO HELMS GUERRERO XTR VEINS 2 UNILATERA L/LIMITED STUDY INITIAL 36514 [facility] 2 GIAN GIAN CARE/DAY 70 MINUTES SEDIMENTA 69906 [facility], TION RATE 2 GRAPHIC PRE PRESS TRADES WORKER GRAPHIC PRE PRESS TRADES WORKER RBC LEXI LEXI NON-AUTOM CO HOS CO HOS ATED CREATINE 77161 [facility], KINASE 2 GRAPHIC PRE PRESS TRADES WORKER GRAPHIC PRE PRESS TRADES WORKER TOTAL LEXI L[facility]I CO HOS CO HOS RADEX HIP 89234 [facility] JACK UNILATERA RADIOLOGY L ASSOCIAT COMPLETE MINIMUM 2 VIEWS RADIOLOGI 35815 [facility] C EXAM 2 JACK CHEST 2 RADIOLOGY VIEWS ASSOCIAT FRONTAL&L ATERAL RADIOLOGI 37792 [facility] C 2 JACK EXAMINATI RADIOLOGY ON FEMUR ASSOCIAT 2 VIEWS C-REACTIV 54324 [facility], E PROTEIN 2 GRAPHIC PRE PRESS TRADES WORKER GRAPHIC PRE PRESS TRADES WORKER LEXI LEXI CO HOS CO HOS COMPREHEN 61437 [facility], [facility], SIVE 2 GRAPHIC PRE PRESS TRADES WORKER GRAPHIC PRE PRESS TRADES WORKER METABOLIC LEXI LEXI PANEL CO HOS CO HOS CREATINE 09095 [facility], KINASE MB 2 GRAPHIC PRE PRESS TRADES WORKER GRAPHIC PRE PRESS TRADES WORKER FRACTION LEXI LEXI ONLY CO HOS CO HOS BLOOD 87888 [facility], [facility], COUNT 2 GRAPHIC PRE PRESS TRADES WORKER GRAPHIC PRE PRESS TRADES WORKER COMPLETE [facility] AUTO&AUTO [facility] CO HOS DIFRNTL WBC NATRIURET 13911 [employer], [facility], IC 2 GRAPHIC PRE PRESS TRADES WORKER GRAPHIC PRE PRESS TRADES WORKER PEPTIDE [facility] MYOGLOBIN 88575 [facility], [facility], 2 GRAPHIC PRE PRESS TRADES WORKER GRAPHIC PRE PRESS TRADES WORKER [facility] [address] [employer], [facility], TROPONIN 2 GRAPHIC PRE PRESS TRADES WORKER GRAPHIC PRE PRESS TRADES WORKER QUANTITAT [facility] SATHISH [facility] CO HOS ECG 90191 LINDA MCKEON ROUTINE 2 JIL JIL ECG W/LEAST 12 LDS I&R ONLY BASIC [address] PANEL CALCIUM IONIZED INJECTION J2250 [address] MIDAZOLAM HCL PER 1 MG BLOOD [address] HEMATOCRI T INJECTION J3010 [address] CITRATE 0.1 MG COLLECTIO 39878 [facility] N VENOUS [address] [place] [address] BLOOD VENIPUNCT URE INJECTION J2001 [address] LIDOCAINE HCL INTRAVENO US INFUS 10 MG CATH PLMT 41858 SRINIVASAN KATIA SRINIVASAN KATIA L HRT & 2 ARTS W/NJX & ANGIO IMG S&I BLOOD [address] PLATELET AUTOMATED ECG 94088 HELMS GUERRERO HELMS GUERRERO ROUTINE 2 ECG W/LEAST 12 LDS W/I&R POLYSOM 95541 HELMS GUERRERO HELMS GUERRERO 6/>YRS 2 SLEEP W/CPAP 4/> ADDL MARINA ATTND CV STRS 39997 [facility] TST 2 [facility] XERS&/OR HOSPITAL HOSPITAL RX CONT ECG TRCG ONLY NONINVASI 07705 [facility] YEUNG VE [address] [facility]ITAL OXIMETRY OVERNIGHT MONITOR CV STRS 51370 HELMS GUERRERO HELMS GUERRERO TST 2 XERS&/OR RX CONT ECG I&R ONLY MYOCARDIA 92432 GAMAL YEUNG L SPECT 2 [facility] STUDIES POLYSOM 33018 [facility] [place] 6/>YRS 2 [facility] W/CPAP 4/> ADDL MARINA ATTND CYANOCOBA 68612 [facility], [facility], CAESAR 2 GRAPHIC PRE PRESS TRADES WORKER GRAPHIC PRE PRESS TRADES WORKER VITAMIN L[facility] BLACKMONS B-12 CO HOS CO HOS 25 12168 [facility], [facility] INC, HYDROXY 2 GRAPHIC PRE PRESS TRADES WORKER GRAPHIC PRE PRESS TRADES WORKER INCLUDES [facility] FRACTIONS CO HOS CO HOS IF PERFORMED HEADGEAR A7035 BENJIE WALDROP USED 2 HOME HOME W/POSITIV MEDICAL MEDICAL E AIRWAY EQUIPME EQUIPME PRESSURE DEVICE NASL A7034 BENJIE WALDROP INTRFCE 2 HOME HOME POS [facility] PRSS EQUIPME EQUIPME DEVC W/WO HEAD STRAP XTRNL ECG 49096 HELMS GUERRERO HELMS GUERRERO 2 CONTINUOU S RHYTHM W/I&R UP TO 48 HRS HUMDIFIR E0562 BENJIE WALDROP HEATED 2 HOME HOME USED MEDICAL MEDICAL W/POS EQUIPME [place] [address] [facility], THYROID 2 GRAPHIC PRE PRESS TRADES WORKER GRAPHIC PRE PRESS TRADES WORKER STIMULATI [facility] NG [place] [address] [employer], FREE 2 GRAPHIC PRE PRESS TRADES WORKER GRAPHIC PRE PRESS TRADES WORKER THYROXINE [facility] [address] [facility], [facility], IRON 2 GRAPHIC PRE PRESS TRADES WORKER GRAPHIC PRE PRESS TRADES WORKER [facility] CO HOS FILTER A7039 BENJIE WALDROP NON 2 HOME HOME DISPBL MEDICAL MEDICAL USED EQUIPME EQUIPME W/POS ARWAY PRESS DEVICE CONTINUOU E0601 BENJIE WALDROP S 2 HOME HOME POSITIVE MEDICAL MEDICAL AIRWAY EQUIPME EQUIPME PRESSURE DEVICE FILTER A7038 BENJIE WALDROP DISPBL 2 HOME HOME USED MEDICAL MEDICAL W/POS EQUIPME EQUIPME ARWAY PRESSURE DEVICE IRON 26343 [facility], BINDING 2 GRAPHIC PRE PRESS TRADES WORKER GRAPHIC PRE PRESS TRADES WORKER CAPACITY LEXI L[facility]I CO HOS CO HOS THYROID 58680 [facility] BioCurity, [facility], HORM 2 GRAPHIC PRE PRESS TRADES WORKER GRAPHIC PRE PRESS TRADES WORKER UPTK/THYR LEXI ELLIOTT OID CO HOS CO HOS HORMONE BINDING RATIO LIPID 34246 [employer], PANEL 2 GRAPHIC PRE PRESS TRADES WORKER GRAPHIC PRE PRESS TRADES WORKER LEXI ELLIOTT CO HOS CO HOS TUBING A7037 BENJIE WALDROP USED WITH 2 HOME HOME POSITIVE MEDICAL MEDICAL AIRWAY EQUIPME EQUIPME PRESSURE DEVICE DUPLEX 82125 HELMS GUERRERO HELMS GUERRERO SCAN 2 EXTRACRAN IAL ART COMPL BI STUDY DUP-SCAN 08935 HELMS GUERRERO HELMS GUERRERO XTR VEINS 2 COMPLETE BILATERAL STUDY XTRNL ECG 11697 HELMS GUERRERO HELMS GUERRERO & 48 HR 2 RECORDING ECG 15586 HELMS GUERRERO HELMS GUERRERO ROUTINE 2 ECG W/LEAST 12 LDS W/I&R [place] [address] [facility] GONSALES ABDOMEN & 2 [facility] PELVIS RADIOLOGY W/O ASSOCIAT [facility] 04270 WORKS GEORGES WORKS GEORGES DISCHARGE 2 DAY MANAGEMEN T > 30 MIN ECG 77479 WORKS GEORGES WORKS GEORGES ROUTINE 2 ECG W/LEAST 12 LDS I&R ONLY RADIOLOGI 25996 [facility] DRU C EXAM 2 [facility] CHEST 2 RADIOLOGY VIEWS ASSOCIAT FRONTAL&[place] [address] [facility] DRU HEAD/BRAI 2 JACK N W/O RADIOLOGY CONTRAST ASSOCIAT MATERIAL NEBULIZER E0570 MT MED MT MED WITH 2 EQUIPMENT EQUIPMENT COMPRESSO INC INC R ADMN SET A7005 MT MED MT MED W/SM VOL 2 EQUIPMENT EQUIPMENT NONFILTR INC INC NEBULIZR NON-DISPB L THERAPEUT 71012 [employer], [employer] INC, IC PX 1/> 2 GRAPHIC PRE PRESS TRADES WORKER GRAPHIC PRE PRESS TRADES WORKER AREAS LEXI ELLIOTT EACH 15 CO HOS CO HOS MIN EXERCISES NONINVASI 43492 AHMED ADN AHMED ADN VE 2 EAR/PULSE OXIMETRY SINGLE DETER THERAPEUT 36816 LEXI ELLIOTT IC PX 1/> 2 CO CO [facility] EACH 15 MIN EXERCISES RADIOLOGI 18482 [facility] DRU C EXAM 2 JACK CHEST 2 RADIOLOGY VIEWS ASSOCIAT FRONTAL&L ATERAL RADEX 40905 LEXI ELLIOTT SPINE 1 CO CO LUMBOSACR [facility] AL MINIMUM 4 VIEWS ANTINUCLE 75140 LEXI ELLIOTT AR 1 CO CO ANTIBODIE [facility] S SARAH SEDIMENTA 38928 LEXI ELLIOTT TION RATE 1 CO MD RBC [facility] NON-AUTOM ATED RHEUMATOI 27501 LEXI Bae FACTOR 1 CO MD QUANTITAT [facility] SATHISH DRUG SCR 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 Y & Y & CHROMATOG BIODIAGNO BIODIAGNO RAPHIC; STICS STICS ANY NUMBER PT ENC URNLS DIP 43318 TAMAREN TAMAREN 1 Jun STICK/TAB LET RGNT NON-AUT[place] [address] LEXI ELLIOTT UREA 1 CO MD NITROGEN [facility] [place] [address] [facility] ABDOMEN & 1 EIDER CASIE PELVIS RADIOLOGY W/O ASSOCIAT CONTRST 1/> BODY RE CREATININ 13680 LEXI Kaplan BLOOD 1 [facility] HEMORRHOI 45461 [place] MOSER DECTOMY 1 MD HOSP LAR INTERNAL RUBBER BAND LIGATIONS ANES 32107 [place] COLEMAN LOWER 1 [facility] INTESTINE [facility] ENDOSCOPY DISTAL DUODENUM COLSC FLX 84591 [place] MOSER 1 [facility] LAR W/REMOVAL LESION BY HOT BX FORCEPS RINGERS J7120 [place] COLEMAN LACTATE 1 [facility] INFUSION [facility] UP TO 1000 CC INJECTION J1100 [place] COLEMAN 1 [facility] DEXAMETHO [facility] SONE SODIUM PHOSPHATE 1 MG INJECTION J1885 [place] COLEMAN 1 [facility] KETOROLAC [facility] TROMETHAM INE PER 15 MG INJECTION J3010 [place] COLEMAN FENTANYL 1 [facility] CITRATE [facility] 0.1 MG UNCLASSIF J3490 [place] COLEMAN IED DRUGS 1 [facility] [place] [address] AMERIPATH JULIUS SURG 1 [place] INC CAR PATHOLOGY GROSS&CECY ROSCOPIC EXAM INJECTION J2405 [place] COLEMAN 1 [facility] PER 1 MG INJECTION J2270 [place] COLEMAN MORPHINE 1 [facility] SULFATE [facility] UP TO 10 MG GONADOTRO 80675 [place] COLEMAN PIN 1 [facility] QUALITATI VE NONINVASI 59070 LEXI PATEL VE 1 [facility] EAR/PULSE RURAL OXIMETRY HEALTH SINGLE DETER SPMTRY 37312 LEXI ELLIOTT W/VC 1 CO MD EXPIRATOR [facility] Y JULISSA W/WO MXML VOL VNTJ ECHO 49983 GUERRERO HELMS HELMS GUERRERO TTHRC R-T 1 2D CONSULTIN W/WOM-MOD G SRV E COMPL SPEC&COLR D ECHO 51282 LEXI ELLIOTT TTHRC R-T [address] [facility] W/WOM-MOD E COMPL SPEC&COLR D LIPID 81299 LEXI ELLIOTT PANEL 1 [facility] LIPOPROTE 86593 LEXI ELLIOTT IN DIRECT 1 [facility] MEASUREME NT LDL CHOLESTER OL HEMOGLOBI 90327 LEXI ELLIOTT N 1 [facility] GLYCOSYLA [facility] SAE A1C COMPREHEN 07438 LEXI ELLIOTT SIVE 1 [facility] [place] [address] LEXI ELLIOTT THYROID 1 [facility] HORMONE TSH COLLECTIO 64647 LEXI Johnson VENOUS 1 [facility] VENIPUNCT URE DUP-SCAN 61698 [facility] GONSALES XTR VEINS 1 [facility] COMPLETE RADIOLOGY ASSOCIAT BILATERAL STUDY ECG 27932 GUERRERO HELMS HELMS GUERRERO ROUTINE 1 ECG CONSULTIN W/LEAST G SRV 12 LDS W/I&R Encounters Encounter Start End Date Code Location Performer Type Date [facility]PITAL [address] [facility] [address] T VISIT ORTHOPAED 15 ICS PSC MINUTES HOSPITAL [address] [facility] 59877 [facility] 7 T VISIT ORTHOPAED 15 ICS PSC MINUTES OFFICE 56167 [facility] 7 7 CULAR & T VISIT SLEEP 25 CONSU MINUTES OFFICE 85981 [facility]ER[facility] 7 7 T VISIT ORTHOPAED 15 ICS PSC MINUTES [facility] OFFICE [address] [facility] 7 7 PHYSICIAN T NEW 30 S GROUP MINUTES OFFICE 71101 GUERRERO HELMS [facility] 7 7 MD T VISIT CONSULTIN 25 G SRV MINUTES HOSPITAL EMMY - 7 7 [facility] - 7 7 [facility] - 7 7 [facility] T OFFICE 59050 GUERRERO CHURCH [facility] 7 7 MD T VISIT CONSULTIN 25 G SRV MINUTES OFFICE 05230 LEXI ESCOBEDO OUTPATIEN 6 6 [facility] T VISIT URGENT 15 TREAT MINUTES OFFICE 54865 L[facility]I ESCOBEDO OUTPATIEN 6 6 [facility] T VISIT URGENT 25 TREAT MINUTES OFFICE 16228 L[facility]I ESCOBEDO OUTPATIEN 6 6 [facility] T VISIT URGENT 15 TREAT MINUTES OFFICE 55439 LAURA CHONG OUTPATIEN 6 6 MD EMEKA, T VISIT PSC 10 MINUTES HOSPITAL EMMY - 6 6 [facility] T OFFICE 00095 LAURA STEELE OUTPATIEN 6 6 MD EMEKA, T VISIT PSC 25 MINUTES HOSPITAL EMMY - 6 6 [facility] T OFFICE 77013 LAURA STEELE OUTPATIEN 6 6 MD EMEKA, T VISIT PSC 15 MINUTES HOSPITAL EMMY - 6 6 [facility] OUTPATIEN [facility] T OFFICE 31418 LEXIJULIO ESCOBEDO OUTPATIEN 6 6 [facility] T VISIT URGENT 25 TREAT MINUTES OFFICE 87435 LAURAEDIE CHONG OUTPATIEN 6 6 MD EMEKA, T VISIT PSC 10 MINUTES OFFICE 37730 LEXI ESCOBEDO OUTPATIEN 6 6 [facility] T VISIT URGENT 25 TREAT MINUTES OFFICE 32352 LAURA COY OUTPATIEN 6 6 MD EMEKA, T VISIT PSC 15 MINUTES OFFICE 97550 LEXI ESCOBEDO OUTPATIEN 6 6 [facility] T VISIT URGENT 25 TREAT MINUTES OFFICE 33713 LAURA STEELE OUTPATIEN 6 6 MD EMEKA, T VISIT PSC 25 MINUTES OFFICE 77514 LAURA STEELE OUTPATIEN 5 5 MD EMEKA, T NEW 45 PSC MINUTES OFFICE 52788 LEXI ESCOBEDO OUTPATIEN 5 5 [facility] T VISIT URGENT 25 TREAT MINUTES HOSPITAL [place] [address] 5 [facility] 70945 L[facility]I GREGG OUTPATIEN 5 5 [facility] T VISIT URGENT 15 TREAT MINUTES OFFICE 46911 LEXI GREGG OUTPATIEN 5 5 [facility] T VISIT URGENT 25 TREAT MINUTES OFFICE 75273 L[place]I ESCOBEDO OUTPATIEN 5 5 [facility] T VISIT URGENT 25 TREAT MINUTES [facility]PITAL [place] [address] 5 [facility] OUTPATIEN JOSÉ T OFFICE 58047 LEXI ESCOBEDO OUTPATIEN 5 5 [facility] T VISIT URGENT 25 TREAT MINUTES OFFICE 25854 [facility] - 5 5 [facility] OUTPATIEN JOSÉ T OFFICE 46718 LEXI ESCOBEDO OUTPATIEN 5 5 [facility] T VISIT URGENT 10 TREAT MINUTES OFFICE 13020 L[place]I ESCOBEDO OUTPATIEN [address] [facility] T VISIT URGENT 25 TREAT MINUTES OFFICE 34436 L[place]I ESCOBEDO OUTPATIEN 5 5 [facility] T VISIT URGENT 25 TREAT MINUTES HOSPITAL EMMY - 5 5 [facility] T OFFICE 70394 L[facility]I ESCOBEDO OUTPATIEN [address] [facility] T VISIT URGENT 25 TREAT MINUTES EMERGENCY 87450 EMMY 5 5 [facility] T VISIT HIGH/URGE NT SEVERITY HOSPITAL EMMY - 5 5 [facility] OUTPATIEN [facility] T OFFICE 64545 L[place]I ESCOBEDO OUTPATIEN 5 5 [facility] T VISIT URGENT 15 TREAT MINUTES OFFICE 48157 L[place]I ESCOBEDO OUTPATIEN [address] [facility] T VISIT URGENT 25 TREAT MINUTES OFFICE 22494 L[place]I ESCOBEDO OUTPATIEN 5 5 [facility] T VISIT URGENT 25 TREAT MINUTES OFFICE 89545 L[place]I ESCOBEDO OUTPATIEN [address] [facility] T VISIT URGENT 25 TREAT MINUTES OFFICE 04191 L[facility]I ESCOBEDO OUTPATIEN [address] [facility] T VISIT URGENT 25 TREAT MINUTES OFFICE 36300 L[facility]I ESCOBEDO OUTPATIEN [address] [facility] T NEW 20 URGENT MINUTES TREAT EMERGENCY 33045 EMMY LUNA, 5 5 [facility] T VISIT P HIGH/URGE NT SEVERITY OFFICE 63519 LEONIDAS BUTROS OUTPATIEN 5 5 ADULT JONNY T VISIT PRIMARY 15 CARE CLI MINUTES EMERGENCY 95941 [facility] 5 [facility] VISIT EMERGENCY HIGH SERVI SEVERITY& THREAT FUNCJ EMERGENCY 84162 [facility] 5 5 [facility] EMERGENCY T VISIT PHYS HIGH/URGE NT SEVERITY OFFICE 86960 MEANS BUTROS OUTPATIEN 5 5 ADULT JONNY T VISIT PRIMARY 25 CARE CLI MINUTES HOSPITAL [facility] 5 5 [facility] OFF[facility] 19359 GUERRERO HELMS [facility] OUTPATI[facility] 5 5 MD CAMP[facility] T VISIT CONSULTIN 25 G SERV MINUTES OFFICE 46838 MEANS BUTROS OUTPATIEN 5 5 ADULT JONNY T VISIT PRIMARY 25 CARE CLI MINUTES OFFICE 97949 GUERRERO [facility]MS [facility] T VISIT CONSULTIN 15 G SRV MINUTES [facility] 5 5 [facility] T OFFICE 05467 GUERRERO HELMS [facility] 5 5 MD CAMPBELL T VISIT CONSULTIN 25 G SERV MINUTES [facility] 5 5 [facility] [place] [address] 5 [facility] T OFFICE 30659 MEANS BUTROS OUTPATIEN 5 5 ADULT JONNY T VISIT PRIMARY 25 CARE CLI MINUTES OFFICE 92856 GUERRERO HELMS HELMS [facility] OUTPATI 5 5 T VISIT CONSULTIN 25 G SRV MINUTES OFFICE 32799 MEANS BUTROS OUTPATIEN 4 4 ADULT JONNY T VISIT PRIMARY 25 CARE CLI MINUTES OFFICE 56538 MEANS BUTROS OUTPATIEN 4 4 ADULT JONNY T VISIT PRIMARY 15 CARE CLI MINUTES Emergency ANTIONETTE Fam (ER) 3 09:33 3 10:48 [facility] - 2 2 GRAPHIC PRE PRESS TRADES WORKER OUTPATIEN [facility] OFFICE 75496 WORKS GEORGES WORKS GEORGES OUTPATIEN 2 2 T VISIT 25 MINUTES OFFICE 73993 HELMS GUERRERO HELMS GUERRERO OUTPATIEN 2 2 T VISIT 25 MINUTES HOSPITAL [facility] - 2 2 GRAPHIC PRE PRESS TRADES WORKER [facility] - 2 2 GRAPHIC PRE PRESS TRADES WORKER [facility] OFF[facility] 26735 WORKS GEORGES WORKS GEORGES OUTPATIEN 2 2 T VISIT 25 MINUTES OFFICE 72862 KERN CAR KERN CAR OUTPATIEN 2 2 T VISIT 15 MINUTES EMERGENCY 92781 LINDA MCKEON DEPT 2 2 JIL JIL VISIT HIGH SEVERITY& THREAT [email or web address], - 2 2 GRAPHIC PRE PRESS TRADES WORKER [facility] [address] T OFFICE 65564 HELMS GUERRERO HELMS GUERRERO OUTPATIEN 2 2 T VISIT 25 MINUTES HOSPITAL [facility] - 2 2 [facility] 2 2 [facility], - 2 2 GRAPHIC PRE PRESS TRADES WORKER [facility] OFF[facility] 43792 HELMS GUERRERO HELMS GUERRERO OUTPATIEN 2 2 T VISIT 25 MINUTES HOSPITAL [facility], - 2 2 GRAPHIC PRE PRESS TRADES WORKER [facility] OFF[facility] 95694 AHMED ARY AHMED ADN OUTPATIEN 2 2 T VISIT 15 MINUTES HOSPITAL [facility] 2 2 [facility] T OFFICE 63634 AHMED ARY AHMED ADN OUTPATIEN 2 2 T VISIT 25 MINUTES OFFICE 88285 DAVINA GHOSH OUTPATIEN 1 1 [facility] VISIT 15 MINUTES HOSPITAL L[facility]I - 1 1 [facility] T OFFICE 91229 BELÉN MELISSA OUTPATIEN 1 1 [facility] NEW 30 MINUTES OFFICE 65852 L[place]I PATEL OUTPATIEN 1 1 [facility] VISIT RURAL 25 [facility] LEXI - 1 1 [facility] COLEMAN - 1 1 [facility] OFFICE 14779 LEXI GANKATHIE OUTPATIEN 1 1 [facility] VISIT RURAL 15 [facility] OFFICE 65309 [facility] 1 1 [facility] 60 MINUTES [facility] LEXI - 1 1 [facility] LEXI - 1 1 [facility] T OFFICE 31990 GUERRERO HELMS HELMS GUERRERO OUTPATIEN 1 1 MD Kemi HOLDEN 45 CONSULTIN MINUTES G [facility] OFFICE 76194 [facility] 8 8 , CHAUNCEY GAINES T NEW 20 MINUTES
--- OUTSIDE RECORDS SUMMARY | 2017-04-02 11:38 | External Medical Summary Rpt | CCD ---
Author Author , TRISTIAN LUBIN Address Unknown Phone [email or web address] Care Team Providers Care Grain Distributor Name Role Phone AHMED ADN, AHMED ADN [...] [facility] BEINEKE, BEINEKE Unavailable Unavailable BEINEKE KURT, BEINEKE Unavailable Unavailable KURT SANTIAGO, ELISABETH Unavailable Unavailable NAYANA KOVACS Unavailable Unavailable [facility] Unavailable [facility]available [facility], [facility] ARGUETA, ARGUETA Unavailable Unavailable ARGUETA ALL, ARGUETA ALL Unavailable Unavailable [facility] Unavailable Unavailable [facility], [facility] HAMMOND CAR, HAMMOND Unavailable Unavailable CAR BUTROS JONNY, BUTROS Unavailable Unavailable JONNY BUX ANJ, BUX ANJ Unavailable Unavailable [facility] & Unavailable Unavailable [facility], [facility] & Unavailable Unavailable DUBILIER, [facility] DUBILIER GONSALES, GONSALES Unavailable Unavailable GONSALES JACK, GONSALES Unavailable Unavailable JACK [facility], Unavailable Unavailable [facility] HELMS, HELMS Unavailable Unavailable HELMS GUERERRO, HELMS GUERRERO Unavailable Unavailable HELMS GUERRERO, HELMS GUERRERO Unavailable Unavailable SHASHA, SHASHA Unavailable Unavailable SHASHA OMAR, Unavailable Unavailable SHASHA OMAR [facility] Unavailable [facility], [facility] DAVINA LAYNE, Unavailable Unavailable DAVINA LAYNE, Unavailable Unavailable KATHY FLORES Unavailable Unavailable [facility], Unavailable Unavailable [facility], Unavailable Unavailable [facility] JR RAQUEL LUNA, Unavailable Unavailable JR RAQUEL LUNA GANTLEY Unavailable Unavailable ENOCH JASON, Unavailable Unavailable KENDALL JASON FOWLER, FOWLER Unavailable Unavailable FOWLER SHANNAN, Unavailable Unavailable FOWLER SHANNAN [facility]OW[facility] AP, Unavailable Unavailable FOWLER AP [facility] Unavailable Unavailable INC, [facility] Unavailable Unavailable HOSPITAL P, [facility] P SRIVASTAVA EDGAR, SRIVASTAVA Unavailable Unavailable EDGAR [facility], Unavailable Unavailable [facility] CHRISTY, CHRISTY Unavailable Unavailable GREGG, GREGG Unavailable Unavailable GREGG NAN, GREGG Unavailable Unavailable NAN LINDA JIL, LINDA Unavailable Unavailable JIL LINDA JIL, LINDA Unavailable Unavailable JIL EHSAN LAR, EHSAN Unavailable Unavailable [facility] KERN CAR, KERN CAR Unavailable Unavailable KRIMM FERMIN, KRIMM FERMIN Unavailable Unavailable [facility] Unavailable Unavailable [facility], [facility] & Unavailable Unavailable [facility] TINY CRI, TINY CRI Unavailable Unavailable DALLAS EDGAR, DALLAS Unavailable Unavailable EDGAR [facility] Unavailable Unavailable [facility], [facility] Unavailable Unavailable [facility], [facility], [facility] Unavailable Unavailable [facility] Unavailable Unavailable [facility] Unavailable Unavailable [facility], [facility], Unavailable Unavailable [facility] YAIR GIAN, YAIR Unavailable Unavailable GIAN YAIR GIAN, YAIR Unavailable Unavailable [facility], Unavailable Unavailable [facility] Unavailable Unavailable HEALTH, [facility] Unavailable Unavailable URGENT TREAT, [facility]RGENT [facility] Unavailable [facility] Unavailable [facility] GUERRERO HELMS MD Unavailable Unavailable CONSULTING SERVGUERRERO MD CONSULTING SERV GUERRERO HELMS MD Unavailable Unavailable CONSULTING SRVGUERRERO MD CONSULTING SRV JENKINS, JENKINS Unavailable Unavailable JAYLEEN CHR, JAYLEEN CHR Unavailable Unavailable SCALF EDGAR, SCALF EDGAR Unavailable Unavailable SCIFRES, SCIFRES Unavailable Unavailable [facility], Unavailable Unavailable [facility] Unavailable Unavailable EQUIPME, [facility] Unavailable Unavailable [facility]QU[facility]ME, [facility] Unavailable Un[facility], [facility], Unavailable Unavailable [facility], [facility]available Unavailable [facility] Unavailable Unavailable [place], [facility] Unavailable Unavailable [facility], [facility] JARRETT RAYJARRETT Unavailable Unavailable RAY RICHYElizabeth KENDALL, RICHYElizabeth Unavailable Unavailable ENOCH LOCKHARTElizabeth ENOCH, TAMAREN Unavailable Unavailable ENOCH GARCIA NIALL, RADHA Unavailable Unavailable NIALL [facility] Un[facility] Unavailable [facility], [facility] Unavailable Unavailable INC [facility] Unavailable Unavailable INC VILLCHAUNCEY GOMEZ, Unavailable Unavailable [facility]AFLOR[facility] Unavailable Unavailable [facility] # Unavailable Unavailable [id number], [facility] # [id number] WORKS GEORGES, WORKS GEORGES Unavailable Unavailable WORKS GEORGES, WOR[facility] Unavailable Unavailable YEASAYER CECY, Unavailable Unavailable YEASAYER CECY CHRISTO MAT, CHRISTO MAT Unavailable Unavailable Purpose Continuity of Care Document - 07-18-2007 through 2016 Problems Code Diagnosis DOS Provider Status 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 [id number] OTHER 03-09-2017 [facility] ASTHMA INC E039 HYPOTHYROID 02-23-2017 [facility] UNSPECIFIED E119 TYPE 2 02-23-2017 [facility] DIABETES [facility] MELLITUS WITHOUT COMPLICATIO NS E784 OTHER 02-23-2017 [facility] HYPERLIPIDE [facility] NELL G4733 OBSTRUCTIVE 02-23-2017 [facility] SLEEP [facility] APNEA ADULT PEDIATRIC I10 ESSENTIAL 02-23-2017 [facility] HYPERTENSIO N [id number] [place] 02-23-2017 [facility] W/UNS ANGINA PECTORIS J439 EMPHYSEMA 02-23-2017 [facility] UNSPECIFIED HOSPITAL M1990 UNSPECIFIED 02-23-2017 [facility] OSTEOARTHRI TIS UNSPECIFIED SITE 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 02-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 M545 LOW BACK 02-15-2017 [facility] PAIN [facility]THOP[facility]IC S PSC N9489 OTH COND 02-14-2017 [facility] W/FE [facility] GEN ORGN & INC MENSTRUAL CYCL R0602 SHORTNESS 02-14-2017 [facility] R072 PRECORDIAL 02-14-2017 [facility] PA[facility] R0789 OTHER CHEST 02-14-2017 [facility] R102 PELVIC AND 02-14-2017 [facility] I2510 [place]SHD [place] 02-08-2017 [facility] CORONARY LAR & SLEEP ARTERY W/O CONSU ANGINA PECTORIS I6523 OCCLUSION & 02-08-2017 [facility] STENOSIS LAR & SLEEP BILATERAL CONSU CAROTID ARTERIES J438 OTHER 02-08-2017 [facility] EMPHYSEMA LAR & SLEEP CONSU R2243 LOC 02-08-2017 [facility] SWELLING LAR & SLEEP MASS & LUMP CONSU LOWER LIMB BILATERAL T89791 ENCOUNTER 02-07-2017 [facility] E COMMERCE MERCHANDISING COORDINATOR EXAM PHYSICIANS GENERAL RTN GROUP W/O ABNORMAL FIND Z124 ENCOUNTER 02-07-2017 [facility] SCREENING MALIG NEOPLASM CERVIX R079 CHEST PAIN 02-06-2017 [facility] C75721 PAIN IN 01-29-2017 [facility] HELMS RIGHT LEG CONSULTING SRV M73187 PAIN IN 01-29-2017 [facility] HELMS LEFT LEG MD CONSULTING SRV 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 UPPER [...] LOCALIZED 10-31-2016 [facility]UT[facility] S45107 OTHER 10-05-2016 [facility] SPASM SOLUTIONS [...] W/DIAB IN MONONEUROPA THY J189 PNEUMONIA 08-23-2016 [facility] UNSPECIFIED [facility]ICAL ORGANISM IMAGING ASS J90 PLEURAL 08-23-2016 [facility] EFFUSION MEDICAL NOT IMAGING ASS ELSEWHERE CLASSIFIED R918 OTHER 08-23-2016 [facility] NONSPECIFIC MEDICAL ABNORMAL IMAGING ASS FINDING OF LUNG FIELD J441 CHRONIC 08-22-2016 [facility] P DZ W/EXACERBAT ION Z720 TOBACCO USE 08-22-2016 [facility] P R0902 HYPOXEMIA 08-21-2016 [facility] J0140 ACUTE 08-19-2016 [place] [place] [facility] INC UNSPECIFIED R05 COUGH 08-19-2016 [facility] R42 DIZZINESS 08-19-2016 [facility] AND [facility]ICAL GIDDINESS IMAGING ASS R531 WEAKNESS 08-19-2016 [facility] I9589 OTHER 07-31-2016 [facility] HYPOTENSION HEALTH SOLUTIONS IN I340 NONRHEUMATI 07-25-2016 [facility] INSUFFICIEN CY I471 SUPRAVENTRI 07-25-2016 [facility] L2081 ATOPIC 03-14-2016 [facility] NEURODERMAT [facility] ITIS URGENT TREAT L500 ALLERGIC 03-14-2016 [facility] URTICARIA [facility] URGENT TREAT L0889 OT SPEC 02-24-2016 [facility] INFECTIONS URGENT THE SKIN & TREAT SUBQ TISSUE M6240 CONTRACTURE 01-11-2016 [facility] UNSPECIFIED HOLDINGS SITE P07150 SPONDYLOSIS 01-10-2016 LAURA HENDRICKSON, W/O , PSC MYELOPATH/R ADICULOPATH Y LUMB RGN M5126 OT 01-10-2016 LISANDRO SERNA MD, PSC RAL DISC DISPLACEMEN T LUMBAR RGN M797 FIBROMYALGI 01-10-2016 Ryann SERNA MD, PSC N26154 PAIN IN 12-13-2015 [facility] RIGHT KNEE [facility] HOLDINGS G38766 PAIN IN 12-13-2015 [facility] LEFT KNEE [facility] HOLDINGS M7981 NONTRAUMATI 12-07-2015 [facility] OF SOFT INC TISSUE M5022 OTH CERV 10-21-2015 [place] DISC MEDICAL DISPLACEMEN IMAGING ASS T MID-CERVICA L REGION M5403 PANNICULITI 10-21-2015 [facility] S AFFCT MEM HOSP REGIONS INC NECK & BACK CT REGION M542 CERVICALGIA 10-21-2015 [facility] M533 SACROCOCCYG 08-31-2015 [place] EAL [facility]ICAL DISORDERS IMAGING ASS NEC R1032 LEFT LOWER 08-31-2015 [place] QU[facility]ANT [facility] PAIN IMAGING ASS Q06942 MUSCLE 08-19-2015 [place] SPASM OF [facility] BACK URGENT TREAT T1490 INJURY 08-19-2015 [place] UNSPECIFIED [facility] URGENT TREAT M791 MYALGIA 07-26-2015 LAURA HENDRICKSON MD, PSC J028 ACUTE 07-12-2015 [place] PHARYNGITIS [facility] DUE TO URGENT OTHER SPEC TREAT ORGANISMS J101 FLU D/T OTH 07-12-2015 [place] ID FLU [facility] VIRUS OTH URGENT RESP TREAT MANIFESTATI ONS J208 ACUTE 06-21-2015 [place] BRONCHITIS [facility] DUE TO URGENT OTHER SPEC TREAT ORGANISMS R21 RASH AND 06-21-2015 [place] OTHER [facility] NONSPECIFIC URGENT SKIN TREAT ERUPTION X11828 ACUTE 04-08-2015 [place] SUPPURATIVE [facility] OM W/O URGENT RUPT EAR TREAT DRUM LT EAR H9202 OTALGIA 04-08-2015 [place] LEFT EAR [facility] URGENT TREAT J302 OTHER 04-08-2015 [facility] SEASONAL [facility] ALLERGIC URGENT RHINITIS TREAT K30 FUNCTIONAL 03-23-2015 [facility] DYSPEPSIA [place] K310 ACUTE 03-23-2015 [facility] DILATATION MOUNT OF STOMACH [facility] R140 ABDOMINAL 03-23-2015 [facility] GASEOUS R935 ABN FIND DX 03-23-2015 [facility] IMAG OTH MOUNT ABD REGIONS [place] RETROPERITO NEUM 81242 SLOW 02-22-2015 [place] TRANSIT [facility] CONSTIPATIO URGENT N TREAT 05654 DIAB W/O 02-17-2015 [place] COMP TYPE [facility] II/UNS NOT URGENT STATED TREAT UNCNTRL 15518 GENERALIZED 02-17-2015 [place] ANXIETY [facility] DISORDER URGENT TREAT 5609 UNSPECIFIED 02-17-2015 [place] INTESTINAL [facility] URGENT OBSTRUCTION TREAT 4610 ACUTE 01-28-2015 [place] MAXILLARY [facility] SINUSITIS URGENT TREAT 05067 ASTHMA, 01-28-2015 [facility] UNSPECIFIED INC , UNSPECIFIED STATUS 496 CHRONIC 01-28-2015 [facility] AIR[facility]AY INC OBSTRUCTION NEC 7291 UNSPECIFIED 01-28-2015 [place] MYALGIA [facility] AND URGENT MYOSITIS TREAT 7821 RASH AND 01-28-2015 [facility] OTHER [facility] NONSPECIFIC URGENT SKIN TREAT ERUPTION 5368 DYSPEPSIA&O 01-25-2015 [facility] [place] THER SPEC RADIOLOGY DISORDERS FUNCTION STOMACH 29353 DIVERTICULO 01-25-2015 [facility] [place] JOSÉ 66759 EFFUSION OF 01-16-2015 [facility] ANKLE AND [facility] FOOT JOINT URGENT TREAT 29963 PAIN IN 01-16-2015 [facility] JOINT, [facility] SHOULDER URGENT REGION TREAT 60898 EXTRINSIC 12-31-2014 [facility] ASTHMA WITH COUNTY STATUS URGENT ASTHMATICUS TREAT 33591 ACUT 12-28-2014 [facility] SUPPRATV [facility] OTITIS URGENT MEDIA W/O TREAT SPONT RUP EARDRUM 462 ACUTE 12-28-2014 [facility] PHARYNGITIS [facility] URGENT TREAT 42206 ABDOMINAL 12-18-2014 [place] [facility], MEDICAL UNSPECIFIED IMAGING ASS SITE 4400 ATHEROSCLER 12-15-2014 [facility] OSIS OF [facility] AORTA URGENT TREAT 5589 OTH&UNSPEC 12-14-2014 [facility] NONINFECTIO [facility] GASTROENTER ITIS&COLITI S 74787 NAUSEA WITH 12-14-2014 [place] VOMITING MEDICAL IMAGING ASS 79844 NAUSEA 12-14-2014 [place] ALONE [facility] 45005 ABDOMINAL 12-14-2014 [place] PAIN OTHER MEDICAL SPECIFIED IMAGING ASS SITE 42126 DIAB W/O 11-26-2014 [facility] COMP TYPE I STATES [JUV] NOT MEDICAL STATED SUPPLY UNCNTRL 84467 BENIGN 11-12-2014 [facility] PAROXYSMAL [facility] POSITIONAL URGENT VERTIGO TREAT 60735 ACUT PEPTC 11-12-2014 [facility] ULCR UNS [facility] SITE W/O URGENT HEMOR TREAT PERF/OBST 7881 DYSURIA 11-12-2014 [facility] URGENT TREAT 4660 ACUTE 10-24-2014 [facility] BRONCHITIS [facility] URGENT TREAT 52905 WHEEZING 10-24-2014 [facility] URGENT TREAT 23776 OTOGENIC 10-19-2014 [facility] PAIN [facility] URGENT TREAT 4011 ESSENTIAL 10-19-2014 [facility] HYPERTENSIO [facility] N, BENIGN URGENT TREAT 4619 ACUTE 10-19-2014 [facility] SINUSITIS, [facility] UNSPECIFIED URGENT TREAT 7862 COUGH 10-19-2014 [facility] URGENT TREAT 9953 ALLERGY 10-19-2014 [facility] UNSPECIFIED [facility] NOT URGENT ELSEWHERE TREAT CLASSIFIED 13358 OBSTRUCTIVE 09-23-2014 [facility] SLEEP APNEA 2724 OTHER AND 09-21-2014 [place] UNSPECIFIED COUNTY URGENT HYPERLIPIDE TREAT NELL 4770 ALLERGIC 09-21-2014 [place] RHINITIS [facility] DUE TO URGENT POLLEN TREAT 95130 ACUT PEPTC 09-21-2014 [place] ULCR UNS COUNTY SITE W/HEM URGENT W/O MENTION TREAT OBST 2851 ACUTE 09-14-2014 [place] POSTHEMORRH [facility] AGIC ANEMIA URGENT TREAT 17633 ACUTE 09-14-2014 [facility] GASTRITIS [facility] WITHOUT URGENT MENTION OF TREAT HEMORRHAGE 77249 LEUKOCYTOSI 09-05-2014 [facility] S PHYSICIANS UNSPECIFIED GROUP 41208 ATROPHIC 09-05-2014 [facility] GASTRITIS [facility] & WITHOUT DUBILIER MENTION OF HEMORRHAGE 27602 UNS 09-05-2014 [facility] GASTRITIS&G PHYSICIANS ASTRODUODIT GROUP IS W/O MENTION HEMORR 58319 DUODENITIS 09-05-2014 [facility] WITHOUT PHYSICIANS MENTION OF GROUP HEMORRHAGE 94249 OTHER 09-05-2014 [place] SPECIFIED MEDICAL DISORDER OF IMAGING ASS INTESTINES 5718 OTHER 09-05-2014 [place] CHRONIC MEDICAL NONALCOHOLI IMAGING ASS C LIVER DISEASE 05367 ABDOMINAL 09-05-2014 [place] PA[facility], MEDICAL EPIGASTRIC IMAGING ASS 45811 HELICOBACTE 09-04-2014 [place] [facility] IN[facility] P 54498 UNSPECIFIED 09-04-2014 [facility] ESOPHAGITIS HOSPITAL P 31855 ACUTE 09-04-2014 [place] [facility] WITH HOSPITAL P HEMORRHAGE 5533 DIAPHRAGMAT 09-04-2014 [place] W/O [facility] P OBSTRUCTION /GANGREN 2449 UNSPECIFIED 09-02-2014 [facility] HYPOTHYROID [facility] CLI ISM 2722 MIXED 09-02-2014 [facility] HYPERLIPIDE PRIMARY NELL CARE CLI 13338 NONSPECIFIC 09-02-2014 [facility] ABNORMAL N EMERGENCY ELECTROCARD SERVI IOGRAM 08100 OBST 08-22-2014 [facility] CHRONIC N EMERGENCY BRONCHITIS PHYS W/ACUTE BRONCHITIS 51608 CHEST PAIN 08-22-2014 [facility] [place] UNSPECIFIED RADIOLOGY 4019 UNSPECIFIED 08-21-2014 [facility] ESSENTIAL PRIMARY HYPERTENSIO CARE CLI N 34909 CORONARY 08-05-2014 [facility] [place] CORONARY ARTERY 67203 CIRCADIAN 07-31-2014 [facility] LOZANO MD SLEEP CONSULTING DISORDER SERV UNSPECIFIED 87020 GEN 07-23-2014 [facility] OSTEOARTHRO PRIMARY SIS CARE CLI INVOLVING MULTIPLE SITES 2720 PURE 07-06-2014 [facility] MANN MD TEROLEMIA CONSULTING SERV 7295 PAIN IN 07-06-2014 [facility] HELMS SOFT TISSUES OF CONSULTING LIMB SRV 7823 EDEMA 07-06-2014 [facility] HELMS MD CONSULTING SRV 87935 SHORTNESS 07-06-2014 [place] [facility] BRE[facility] 55366 PRECORDIAL 07-06-2014 [facility] PA[facility] 2723 HYPERCHYLOM 06-30-2014 [facility] ICRONEMIA [facility] 7197 DIFFICULTY 06-30-2014 [facility] W[facility] 51757 PAINFUL 05-26-2014 [facility]PIRATION PRIMARY CARE CLI 2689 UNSPECIFIED 12-22-2011 [facility], VITAMIN D ASSEMBLER [place] 49046 OBESITY, 12-22-2011 [facility], UNSPECIFIED [facility] [place] 98162 COR 12-22-2011 [facility] ATHEROSLERO UNSPEC TYPE VESSEL [place]/PIERCE T 5693 HEMORRHAGE 11-10-2011 [facility] OF RECTUM AND ANUS 5990 URINARY 11-10-2011 [facility] TRACT INFECTION SITE NOT SPECIFIED 7873 FLATULENCE 11-10-2011 [facility] ERUCTATION AND GAS PAIN V6709 FOLLOW-UP 08-25-2011 [facility] FOLLOWING ASSOCIAT OTHER SURGERY 54800 OTHER 08-24-2011 [facility] MALAISE AND FATIGUE 2469 UNSPECIFIED 08-19-2011 [facility] GIAN DISORDER OF THYROID 33105 DIAB 08-19-2011 [facility] W/NEURO MANIFESTS TYPE II/UNS NOT UNCNTRL 6826 CELLULITIS 08-19-2011 [facility] GIAN AND ABSCESS OF LEG EXCEPT FOOT 53051 AC LEANNE 08-16-2011 LIN[facility] JIL EMBO & THROMB UNSPEC DEEP VES LOWER EXT 07000 OTHER 08-16-2011 [facility] DISEASES OF RADIOLOGY LUNG NOT ASSOCIAT ELSEWHERE CLASSIFIED 7231 CERVICALGIA 08-16-2011 [facility], [facility] [place] 94114 UNSPECIFIED 08-11-2011 [facility] ARTHROPATHY SITE UNSPECIFIED 7802 SYNCOPE AND 08-01-2011 [facility] COLLAPSE [facility] 7804 DIZZINESS 08-01-2011 [facility] 7820 DISTURBANCE 08-01-2011 HELMS GUERRERO OF SKIN SENSATION 84325 OCCLUSION&S 07-19-2011 HELMS GUERRERO TENOS CAROTID ART W/O MENTION INFARCT 84568 OTHER 07-07-2011 [facility] DISEASES OF RADIOLOGY SPLEEN ASSOCIAT 5531 UMB HERNIA 07-07-2011 [facility] WITHOUT RADIOLOGY MENTION ASSOCIAT OBSTRUCTION /GANGRENE E8889 UNSPECIFIED 07-06-2011 [facility] FALL RADIOLOGY ASSOCIAT 15251 OBSTRUCTIVE 06-26-2011 [facility] CHRONIC BRONCHITIS WITH EXACERBATIO N 53409 OSTEOARTHRO 06-26-2011 [facility], SIS UNSPEC ASSEMBLER UNIT WHETHER [place] GEN/LOC HOS LOWER LEG 7202 SACROILIITI 06-26-2011 [facility], S NOT ASSEMBLER UNIT ELSEWHERE [place] CLASSIFIED HOS V571 OTHER 06-26-2011 [facility], PHYSICAL ASSEMBLER UNIT THERAPY [facility] HOS 1320 PEDICULUS 05-31-2011 [facility] CAPITIS XI 58879 DEGEN 05-15-2011 [facility] LUMBAR/LUMB RADIOLOGY OSACRAL ASSOCIAT INTERVERTEB RAL DISC 7242 LUMBAGO 05-15-2011 [facility] HOSPITAL 03179 OSTEOARTHRO 05-12-2011 TAMJEANIE KENDALL S INVLV MX SITES BUT NOT SPEC GEN V5883 ENCOUNTER 05-12-2011 BELÉN KENDALL FOR THERAPEUTIC DRUG MONITORING 30328 ANAL OR 03-28-2011 [place] RECTAL PAIN [facility] V5869 LONG-TERM 03-28-2011 [facility] (CURRENT) HOSPITAL USE OF OTHER MEDICATIONS 2113 BENIGN 03-15-2011 [facility] NEOP[facility]M OF [facility]OSPITAL COLON 4556 UNSPEC 03-15-2011 [facility] H[facility] WITHOUT MENTION COMPLICATIO N 5690 ANAL AND 03-15-2011 [facility] [place] [facility] POLYP 5781 BLOOD IN 02-21-2011 [facility] STOOL HOSP 20055 OTHER 02-21-2011 [facility] DYSPNEA AND HOSPITAL RESPIRATORY ABNORMALITI ES 7851 PALPITATION 01-19-2011 GUERRERO Walsh [place] CONSULTING SRV 56415 SWELLING OF 01-18-2011 [facility] RADIOLOGY ASSOCIAT 92411 HYPERSOMNIA 01-13-2011 GUERRERO HELMS MD UNSPECIFIED CONSULTING SRV [id number] OTHER CHEST 01-13-2011 GUERRERO SIMPSON MD CONSULTING SRV Medications Na ND Rx Da Fi Fi Am Da Di Ph RX Ph St me C No te ll ll ou ys ag ar # ys at rm s nt no ma ic us Or Da si cy ia de te s n re d AD 00 09 10 2 60 30 SO 38 GA Ac VA 17 -2 -2 .0 PE 46 NT ti IR 30 0- 5- 00 RS 18 LE ve 69 20 20 Y 10 50 11 11 FA JA 0- 0 AK NA [address] SK UG US AV 00 10 10 0 7. 7 SO 38 GA Ac EL 08 -2 -2 00 PE 79 NT ti OX 51 5- 5- 0 RS 81 LE ve 73 20 20 Y 40 30 11 11 FA JA 0 1 AK NA MG LY R TA DR BL UG ET 59 10 10 5 8. 15 SO 38 GA Ac 31 -2 -2 50 PE 79 NT ti 00 5- 5- 0 RS 82 LE ve 57 20 20 Y 92 11 11 FA JA 0 AK NA LY R DR UG 00 10 10 3 24 2 SO 38 GA Ac 12 -2 -2 0. PE 79 NT ti 10 5- 5- 00 RS 83 LE ve 74 20 20 0 Y 40 11 11 FA JA 4 AK NA LY R DR UG PI 00 10 10 3 30 30 SO 38 GA Ac RO 09 -2 -2 .0 PE 80 NT ti XI 30 5- 5- 00 RS 21 LE ve CA 75 20 20 Y M 60 11 11 FA JA 10 1 AK NA LY R MG DR CA UG PS UL E OX 00 10 10 0 10 2 SO 38 GA Ac YC 60 -2 -2 .0 PE 80 NT ti OD 34 5- 5- 00 RS 30 LE ve ON 99 20 20 Y E- 82 11 11 FA JA AC 8 AK NA ET LY R AM IN DR OP UG HE N 5- 32 5 AL 59 10 10 0 60 30 SO 38 AH Ac DE 76 -2 -2 .0 PE 78 ME ti AZ 23 4- 4- 00 RS 77 D ve OL 72 20 20 AD AM 10 11 11 FA NA 1 3 AK N LY MG DR TA UG BL ET DI 00 10 10 3 60 30 SO 38 AH Ac LT 37 -2 -2 .0 PE 78 ME ti IA 80 4- 4- 00 RS 78 D ve ZE 52 20 20 AD M 50 11 11 FA NA 12 1 AK N [address] TA UG BL ET NE 61 10 10 0 10 7 SO 38 AH Ac OM 31 -1 -1 .0 PE 68 ME ti YC 40 2- 2- 00 RS 11 D ve IN 64 20 20 AD -P 61 11 11 FA NA OL 0 AK N YM LY YX IN DR -H UG C EA R SO LN OX 00 10 10 0 20 3 SO 38 KE Ac YC 60 -1 -1 .0 PE 68 AR ti OD 34 2- 2- 00 RS 12 NS ve ON 99 20 20 E- 82 11 11 FA LA AC 8 AK RI ET LY EN AM D IN OP UG HE N 5- 32 5 OS 65 09 09 0 32 1 SO 38 KE Ac MO 64 -2 -2 .0 PE 50 AR ti DE 90 3- 3- 00 RS 06 NS ve EP 70 20 20 14 11 11 FA LA TA 1 AK RI BL LY EN ET D DR HORNE 00 09 09 0 40 5 SO 38 GA Ac 59 -2 -2 .0 PE 50 NT ti 10 3- 3- 00 RS 12 LE ve 34 20 20 Y 90 11 11 FA JA 5 AK NA LY R DR HORNE AD 00 09 09 2 60 30 SO 38 GA Ac VA 17 -2 -2 .0 PE 46 NT ti IR 30 0- 0- 00 RS 18 LE ve 69 20 20 Y 10 50 11 11 FA JA 0- 0 AK NA 50 LY R DI SK UG US AL 59 09 09 0 60 30 SO 38 GA Ac DE 76 -1 -1 .0 PE 44 NT ti AZ 23 9- 9- 00 RS 74 LE ve OL 72 20 20 Y AM 10 11 11 FA JA 1 3 AK NA LY R MG TA UG BL ET 00 09 09 4 30 30 SO 38 GA Ac 14 -1 -1 .0 PE 44 NT ti 31 9- 9- 00 RS 76 LE ve 25 20 20 Y 61 11 11 FA JA 0 AK NA LY R DR HORNE PI 00 08 09 5 30 30 [...] 25 10 MG 11 40 TA B DE 64 09 09 2 30 7 SO 38 GA Ac OC 98 -0 -0 .0 PE 33 NT ti TO 00 6- 6- 00 RS 95 LE ve ZO 30 20 20 Y NE 13 11 11 FA JA -H 0 AK NA C LY R 2. 5% DR COLEEN CR EA M 59 09 09 2 8. 15 SO 38 GA Ac 31 -0 -0 50 PE 33 NT ti 00 6- 6- 0 RS 96 LE ve 57 20 20 Y 92 11 11 FA JA 0 AK NA LY R DR UG FL 00 09 09 2 16 30 SO 38 GA Ac UT 05 -0 -0 .0 PE 33 NT ti IC 43 6- 6- 00 RS 98 LE ve 27 20 20 Y ON 09 11 11 FA JA E 9 AK NA DE LY R OP DR 50 UG MC G SP RA Y AL 59 09 09 0 60 30 SO 38 GA Ac DE 76 -0 -0 .0 PE 33 NT ti AZ 23 6- 6- 00 RS 99 LE ve OL 72 20 20 Y AM 00 11 11 FA JA 3 AK NA 0. LY R [address] HORNE TA BL ET CE 68 09 09 0 40 10 SO 38 GA Ac PH 18 -0 -0 .0 PE 34 NT ti AL 00 6- 6- 00 RS 00 LE ve EX 12 20 20 Y IN 20 11 11 FA JA 2 AK NA 50 LY R [address] HORNE CA PS UL E 00 09 09 0 40 10 SO 38 GA Ac 07 -0 -0 .0 PE 34 NT ti 46 6- 6- 00 RS 01 LE ve 30 20 20 Y 41 11 11 FA JA 3 AK NA LY R DR UG 00 09 09 0 15 5 SO 38 GA Ac 14 -0 -0 .0 PE 34 NT ti 31 6- 6- 00 RS 02 LE ve 47 20 20 Y 70 11 11 FA JA 1 AK NA LY R DR UG DI 00 08 08 1 60 30 SO 38 GA Ac LT 37 -2 -2 .0 PE 25 NT ti IA 80 6- 6- 00 RS 68 LE ve ZE 52 20 20 Y M 50 11 11 FA JA 12 1 AK NA [address] CARABALLO UG BL ET LE 00 08 08 6 30 30 SO 38 CO Ac VO 52 -1 -1 .0 PE 16 MB ti TH 71 8- 8- 00 RS 96 S ve YR 34 20 20 PA OX 11 11 11 FA ME IN 0 AK LA E LY A 25 DR JEAN-BAPTISTE UG G TA BL ET AL 00 08 08 0 60 30 WA 44 GA Ac DE 37 -0 -0 .0 L- 95 NT [...] 41 08 08 FA la HE 0 AK bl N- LY e CO D DR #3 UG TA BL ET AC 00 02 03 00 20 5 SO 27 No Ac ET 40 -1 -2 .0 PE 61 t ti AM 60 4- 6- 00 RS 36 Av ve IN 48 20 20 ai OP 41 08 08 FA la HE 0 AK bl N- LY e CO D DR #3 UG TA BL ET 60 02 03 00 24 12 SO 27 No Ac 25 -1 -2 0. PE 61 t ti 80 4- 6- 00 RS 34 Av ve 23 20 20 0 ai 91 08 08 FA la 6 AK bl LY e DR UG CI 55 02 03 00 20 10 SO 27 No Ac DE 11 -1 -2 .0 PE 61 t ti OF 10 4- 6- 00 RS 33 Av ve LO 12 20 20 ai XA 70 08 08 FA la CI 1 AK bl N LY e HC L DR 50 UG 0 MG TA B Procedures Procedure DOS Code Location Performer Comment O2 CONC 1 E1390 BENJIE GALAN [facility] 7 HOME HOME 85%/>02 MEDICAL MEDICAL CONC AT EQUIPME EQUIPME PRSC FLW RATE PHRM Q0513 MED 4 MED 4 DISPENSIN 7 HOME INC HOME INC G FEE INHALATIO N RX; PER 30 DAYS ALBUTEROL J7613 MED 4 MED 4 INHAL 7 HOME INC HOME INC NON-CP PROD THRU DME U DOSE 1 MG IPRATROPI J7644 MED 4 MED 4 UM 7 HOME INC HOME INC BROMIDE INHAL NON-CP U DOSE PER MG INJECTION J3010 [facility] FENTANYL [address] [place] [address] CITRATE 0.1 MG INJECTION J1644 [facility] HEPARIN [address] [place] [address] SODIUM PER 1000 UNITS INJECTION J2001 [address] LID[facility] HCL INTRAVENO US INFUS 10 MG BLOOD [address] HEMATOCRI T BLOOD [address] PLATELET AUTOMATED BASIC [address] PANEL CALCIUM IONIZED GUIDE C[address] [place]MT [address] [facility] L HRT & [address] [place] [address] ARTS W/NJX & ANGIO IMG S&I CATHETER C18[address] [place] [address] [place] [facility] TRANSVAGI 7 MEDICAL NAL IMAGING ASS PHRM Q0513 MED 4 MED 4 DISPENSIN 7 HOME INC HOME INC G FEE INHALATIO N RX; PER 30 DAYS ADMN SET A7003 MED 4 MED 4 SM VOL 7 HOME INC HOME INC NONFILTR PNEUMAT NEBULIZR DISPBL RADIOLOGI 48287 [place] C EXAM 7 MEDICAL CHEST 2 IMAGING VIEWS ASS FRONTAL&L ATERAL ALBUTEROL J7613 MED 4 MED 4 INHAL 7 HOME INC HOME INC NON-CP PROD THRU DME U DOSE 1 MG IPRATROPI J7644 MED 4 MED 4 UM 7 HOME INC HOME INC BROMIDE INHAL NON-CP U DOSE PER MG O2 CONC 1 E1390 BENJIE HARDY 7 HOME HOME 85%/>02 MEDICAL MEDICAL CONC AT EQUIPME EQUIPME PRSC FLW RATE SCR G0145 [facility] CYTOPATH 7 [employer] CERV/VAG SCR AUTO&MNL RSCR PHYS URNLS DIP 95580 [facility] DRU 7 PHYSICIAN STICK/TAB S GROUP LET RGNT NON-AUTO W/O MICRSCP ANNUAL G0439 [facility] DRU WELLNESS 7 PHYSICIAN VST; S GROUP PERSONALI ZED PPS SUBSQT VST COLLECTIO 44295 [facility] N VENOUS 7 [facility] VENIPUNCT URE CV STRS 99170 [facility] TST 7 [facility] XERS&/OR HOSPITAL HOSPITAL RX CONT ECG TRCG ONLY CV STRS 84864 [facility] HELMS HELMS TST 7 MD XERS&/OR CONSULTIN RX CONT G SRV ECG I&R ONLY NONINVASI 82221 [facility] VE [address] [place] [address] EAR/PULSE LDS HOSPITAL HOSPITAL OXIMETRY OVERNIGHT MONITOR NATRIURET 47082 [facility] IC [address] [place] [address] BLOOD 81811 [facility] COUNT [address] [place] [address] AUTO&AUTO DIFRNTL WBC TECHNETIU A9500 [facility] M TC-99M [address] [place] [address] DX PER STUDY DOSE MYOCARDIA 60342 [facility] HELMS HELMS L SPECT 7 MULTIPLE CONSULTIN STUDIES G SRV COMPREHEN 89771 [facility] SIVE [address] [place] [address] HOSPITAL PANEL NONINVASI 71236 GUERRERO HELMS HELMS VE 7 MD EAR/PULSE CONSULTIN OXIMETRY G SRV OVERNIGHT MONITOR MRI 02487 [facility] SPINAL 7 CANAL ORTHOPAED LUMBAR ICS PSC W/O CONTRAST MATERIAL DUP-SCAN 49025 GUERR[facility] HELMS WAESPE XTR VEINS 7 MD COMPLETE CONSULTIN G SRV BILATERAL STUDY ECG 79839 GUERR[facility] HELMS HELMS ROUTINE 7 MD ECG CONSULTIN W/LEAST G SRV 12 LDS W/I&R ALBUTEROL J7613 MED 4 MED 4 INHAL 7 HOME INC HOME INC NON-CP PROD THRU DME U DOSE 1 MG IPRATROPI J7644 MED 4 MED 4 UM 7 HOME INC HOME INC BROMIDE INHAL NON-CP U DOSE PER MG PHRM Q0513 MED 4 MED 4 DISPENSIN 7 HOME INC HOME INC G FEE INHALATIO N RX; PER 30 DAYS ADMN SET A7003 MED 4 MED 4 SM VOL 7 HOME INC HOME INC NONFILTR PNEUMAT NEBULIZR DISPBL FACE MASK A7031 US MED US MED 7 INC INC INTERFACE REPLCMT FULL FACE MASK EA TUBING A7037 US MED US MED USED WITH 7 INC INC POSITIVE AIRWAY PRESSURE DEVICE FILTER A7038 US MED US MED DISPBL 7 INC INC USED W/POS ARWAY PRESSURE DEVICE FULL FACE A7030 US MED US MED MASK 7 INC INC USED W/POS ARWAY PRESS DEVICE EA CONTINUOU E0601 BENJIEMAAME MCDERMOTTRELL S 7 HOME HOME POSITIVE MEDICAL MEDICAL AIRWAY EQUIPME EQUIPME PRESSURE DEVICE ADMN SET A7003 MED 4 MED 4 [...] PROD THRU DME U DOSE 1 MG CONTINUOU E0601 BENJIE BENJIE S 7 HOME HOME POSITIVE MEDICAL MEDICAL AIRWAY EQUIPME EQUIPME PRESSURE DEVICE PHRM Q0513 MED 4 MED 4 DISPENSIN 7 HOME INC HOME INC G FEE INHALATIO N RX; PER 30 DAYS ADMN SET A7003 MED 4 MED 4 SM VOL 7 HOME INC HOME INC NONFILTR PNEUMAT NEBULIZR DISPBL IPRATROPI J7644 MED 4 MED 4 UM 7 HOME INC HOME INC BROMIDE INHAL NON-CP U DOSE PER MG ALBUTEROL J7613 MED 4 MED 4 INHAL 7 HOME INC HOME INC NON-CP PROD THRU DME U DOSE 1 MG FEDERALLY G0467 [place] [address] [facility] VISIT ESTAB PT FEDERALLY G0467 [place] [address] [employer] [facility] IN CENTER VISIT ESTAB PT URNLS DIP 63386 [place] [address] HEALTH STICK/TAB SOLUTIONS LET RGNT IN AUTO W/O MICROSCOP Y PHRM Q0513 MED 4 MED 4 DISPENSIN 7 HOME INC HOME INC G FEE INHALATIO N RX; PER 30 DAYS ALBUTEROL J7613 MED 4 MED 4 INHAL 7 HOME INC HOME INC NON-CP PROD THRU DME U DOSE 1 MG IPRATROPI J7644 MED 4 MED 4 UM 7 HOME INC HOME INC BROMIDE INHAL NON-CP U DOSE PER MG FEDERALLY G0467 [place] [address] [facility] VISIT ESTAB PT PHRM Q0513 MED 4 MED 4 DISPENSIN 7 HOME INC HOME INC G FEE INHALATIO N RX; PER 30 DAYS ADMN SET A7005 MED 4 MED 4 W/SM VOL 7 HOME INC HOME INC NONFILTR NEBULIZR NON-DISPB L IPRATROPI J7644 MED 4 MED 4 UM 7 HOME INC HOME INC BROMIDE INHAL NON-CP U DOSE PER MG ALBUTEROL J7613 MED 4 MED 4 INHAL 7 HOME INC HOME INC NON-CP PROD THRU DME U DOSE 1 MG FEDERALLY G0467 [place] [address] [facility] VISIT ESTAB PT CONTINUOU E0601 BENJIE WALDROP S 7 HOME HOME POSITIVE MEDICAL MEDICAL AIRWAY EQUIPME EQUIPME PRESSURE DEVICE HUMDIFIR E0562 BENJIE WALDROP HEATED 7 HOME HOME USED MEDICAL MEDICAL W/POS EQUIPME EQUIPME ARWAY PRESSURE DEVICE FEDERALLY G0467 [place] [address] [employer] [facility] IN CENTER VISIT ESTAB PT OPHTH [address] [place] [address] [facility]AL [facility] CENTER COMPRE NEW PT 1/> VST DETERMINA 15344 FABRICE AGUIRRE TION 7 VISION REFRACTIV CENTER E STATE IPRATROPI J7644 MED 4 MED 4 UM 7 HOME INC HOME INC BROMIDE INHAL NON-CP U DOSE PER MG ALBUTEROL J7613 MED 4 MED 4 INHAL 7 HOME INC HOME INC NON-CP PROD THRU DME U DOSE 1 MG PHRM Q0513 MED 4 MED 4 DISPENSIN 7 HOME INC HOME INC G FEE INHALATIO N RX; PER 30 DAYS HEADGEAR A7035 US MED US MED USED 7 INC INC W/POSITIV E AIRWAY PRESSURE DEVICE FACE MASK A7031 US MED [...] USED W/POS ARWAY PRESS DEVICE EA FILTER A7039 US MED US MED NON 7 INC INC DISPBL USED W/POS ARWAY PRESS DEVICE HEMOGLOBI 00848 LAB DECLAN LAB DECLAN N 7 [facility] GLYCOSYLA [facility] HOLD[facility] SAE A1C FEDERALLY G0467 [place] [address] [facility] VISIT ESTAB PT BLOOD 32112 LAB DECLAN LAB DECLAN COUNT 7 [facility] COMPLETE [facility] HOLDINGS AUTO&AUTO DIFRNTL WBC COMPREHEN 39328 LAB DCELAN LAB DECLAN SIVE 7 [facility] METABOLIC [facility] PANEL LIPID 00811 LAB DECLAN LAB DECLAN PANEL 7 [place] [address] LAB DECLAN LAB DECLAN THYROID 7 [facility] STIMULATI [facility] HOLD[facility] NG HORMONE TSH COLLECTIO 33225 [facility] N VENOUS 7 Dpivision BLOOD SOLUTIONS VENIPUNCT IN URE FEDERALLY G0467 [place] [address] [facility] VISIT ESTAB PT CT THORAX 71344 [facility] 7 MEDICAL W/CONTRAS IMAGING T ASS MATERIAL RADIOLOGI 25725 [place] [facility] EXAM 7 MEDICAL CHEST 2 IMAGING VIEWS ASS FRONTAL&L ATERAL ECG 91127 EMMY NAYANA ROUTINE [address] [facility] W/LEAST P 12 LDS I&R ONLY RADIOLOGI 08317 [facility] C EXAM 7 MEDICAL CHEST 2 IMAGING VIEWS ASS FRONTAL&L ATERAL RADIOLOGI 88465 [place] [facility] C EXAM 7 MEDICAL CHEST 2 IMAGING VIEWS ASS FRONTAL&[place] [address] [facility] HEAD/BRAI 7 MEDICAL N W/O IMAGING CONTRAST ASS MATERIAL PHRM Q0513 MED 4 MED 4 DISPENSIN 7 HOME INC HOME INC G FEE INHALATIO N RX; PER 30 DAYS ADMN SET A7003 MED 4 MED 4 SM VOL 7 HOME INC HOME INC NONFILTR PNEUMAT NEBULIZR DISPBL ALBUTEROL J7613 MED 4 MED 4 INHAL 7 HOME INC HOME INC NON-CP PROD THRU DME U DOSE 1 MG IPRATROPI J7644 MED 4 MED 4 UM 7 HOME INC HOME INC BROMIDE INHAL NON-CP U DOSE PER MG NEEDLE 82703 EMMY BOOTH EMG EA 7 [facility] EXTREMTY INC INC W/PARASPI NL AREA COMPLETE NERVE 09465 EMMY BOOTH CONDUCTIO 7 [facility] MEM HOSP N STUDIES INC INC 3-4 STUDIES FEDERALLY G0467 [place] [address] [facility] VISIT ESTAB PT TECHNETIU A9500 [facility] TC-99M 7 [facility] DX PER STUDY DOSE MYOCARDIA 10344 GUERRERO SCOOTER CHURCH L SPECT 7 MULTIPLE CONSULTIN STUDIES G SRV NONINVASI 81716 [facility] VE [address] [place] [address]/[facility] HOSPITAL OXIMETRY OVERNIGHT MONITOR CV STRS 56970 GUERRERO CHURCH TST 7 XERS&/OR CONSULTIN RX CONT G SRV ECG I&R ONLY CV STRS 19016 [facility] TST 7 [facility]&/OR HOSPITAL HOSPITAL RX CONT ECG TRCG ONLY ECHO 69603 GUERRERO HELMS HELMS TTHRC R-T 7 MD 2D CONSULTIN W/WOM-MOD G SRV E COMPL SPEC&COLR D ECG 23244 GUERRERO HELMS WAESPE ROUTINE 7 MD ECG CONSULTIN W/LEAST G SRV 12 LDS W/I&R IPRATROPI J7644 MED 4 MED 4 UM [...] FEE INHALATIO N RX; PER 30 DAYS PHRM Q0513 MED 4 MED 4 DISPENSIN [...] FEE INHALATIO N RX; PER 30 DAYS ADMN SET A7003 MED 4 MED 4 [...] MEDICAL HOME BLD SUPPLY SUPPLY GLU MON-50 ADMN SET A7005 MED 4 MED 4 W/SM VOL 6 HOME INC HOME INC NONFILTR NEBULIZR NON-DISPB L PHRM Q0513 MED 4 MED 4 DISPENSIN 6 HOME INC HOME INC G FEE INHALATIO N RX; PER 30 DAYS ALBUTEROL J7613 MED 4 MED 4 INHAL 6 HOME INC HOME INC NON-CP PROD THRU DME U DOSE 1 MG IPRATROPI J7644 MED 4 MED 4 UM 6 HOME INC HOME INC BROMIDE [place]HAL [place] [address] LAB DECLAN LAB DECLAN MAGNESIUM 6 [place] [facility] POTASSIUM 75061 LAB DECLAN LAB DECLAN SERUM 6 [place] PLASMA/WH [facility] HOLDINGS OLE BLOOD PHRM Q0513 MED 4 MED 4 DISPENSIN 6 HOME INC HOME INC G FEE INHALATIO N RX; PER 30 DAYS ADMN SET A7003 MED 4 MED 4 [...] 6 HOME INC HOME INC COMPRESSO R FULL FACE A7030 US MED US MED MASK 6 INC INC USED W/POS ARWAY PRESS DEVICE EA FILTER A7038 US MED US MED DISPBL 6 INC INC USED W/POS ARWAY PRESSURE DEVICE FACE MASK A7031 US MED US MED 6 INC INC INTERFACE REPLCMT FULL FACE MASK EA TUBING A7037 US MED US MED USED WITH 6 INC INC POSITIVE AIRWAY PRESSURE DEVICE NASL A7034 BENJIE WALDROP INTRFCE 6 HOME HOME POS [facility] MEDICAL MEDICAL PRSS EQUIPME EQUIPME DEVC W/WO HEAD STRAP COMPREHEN 41706 LAB DECLAN LAB DECLAN SIVE 6 [facility] METABOLIC [facility] PANEL RHEUMATOI 39357 LAB DECLAN LAB DECLAN D FACTOR 6 [facility] QUANTITAT [facility] SATHISH EXTRACTAB 07230 LAB DECLAN LAB DECLAN LE 6 [facility] NUCLEAR [facility] ANTIGEN ANTIBODY ANY METHOD PHRM Q0513 MED 4 MED 4 DISPENSIN 6 HOME INC HOME INC G FEE INHALATIO N RX; PER 30 DAYS ALBUTEROL J7613 MED 4 MED 4 INHAL 6 HOME INC HOME INC NON-CP PROD THRU DME U DOSE 1 MG IPRATROPI J7644 MED 4 MED 4 UM 6 HOME INC HOME INC BROMIDE INHAL NON-CP U DOSE PER MG DUP-SCAN 08237 [place] [facility] ALL XTR VEINS 6 MEDICAL IMAGING UNILATERA ASS L/LIMITED STUDY NEBULIZER E0570 MED 4 MED 4 WITH 6 HOME INC HOME INC COMPRESSO R PHRM Q0513 MED 4 MED 4 DISPENSIN 6 HOME INC HOME INC G FEE INHALATIO N RX; PER 30 DAYS ADMN SET A7003 MED 4 MED 4 SM VOL 6 HOME INC HOME INC NONFILTR PNEUMAT NEBULIZR DISPBL IPRATROPI J7644 MED 4 MED 4 UM 6 HOME INC HOME INC BROMIDE INHAL NON-CP U DOSE PER MG ALBUTEROL J7613 MED 4 MED 4 INHAL 6 HOME INC HOME INC NON-CP PROD THRU DME U DOSE 1 MG BLD GLU A4253 [facility] TEST/REAG 6 STATES STATES T STRIPS MEDICAL MEDICAL HOME BLD SUPPLY SUPPLY GLU MON-50 NORMAL A4256 UNITED UNITED LOW AND 6 STATES STATES HIGH MEDICAL MEDICAL CALIBRATO SUPPLY SUPPLY R SOLUTION/ CHIPS LANCETS A4259 UNITED UNITED PER BOX 6 STATES STATES OF [facility] MEDICAL MEDICAL SUPPLY SUPPLY NEBULIZER E0570 MED 4 MED 4 WITH 6 HOME INC HOME INC COMPRESSO R MRI 92327 SU[facility] AR[facility]ET[facility] ALL SPINAL 6 MEDICAL CANAL IMAGING LUMBAR ASS W/O CONTRAST MATERIAL 3D 30992 [facility] ALL RENDERING 6 MEDICAL W/INTERP IMAGING & ASS POSTPROCE SS SUPERVISI ON MRI 81483 [facility] AR[facility] ALL SPINAL 6 MEDICAL CANAL IMAGING CERVICAL ASS W/O CONTRAST MATRL ALBUTEROL J7613 MED 4 MED 4 INHAL 6 HOME INC HOME INC NON-CP PROD THRU DME U DOSE 1 MG IPRATROPI J7644 MED 4 MED 4 UM 6 HOME INC HOME INC BROMIDE INHAL NON-CP U DOSE PER MG ADMN SET A7003 MED 4 MED 4 SM VOL 6 HOME INC HOME INC NONFILTR PNEUMAT NEBULIZR DISPBL PHRM Q0513 MED 4 MED 4 DISPENSIN 6 HOME INC HOME INC G FEE INHALATIO N RX; PER 30 DAYS NEBULIZER E0570 MED 4 MED 4 WITH 6 HOME INC HOME INC COMPRESSO R FILTER A7038 US MED US MED DISPBL 6 INC INC USED W/POS ARWAY PRESSURE DEVICE FILTER A7039 US MED US MED NON 6 INC INC DISPBL USED W/POS ARWAY PRESS DEVICE FULL FACE A7030 US MED US MED MASK 6 INC INC USED W/POS ARWAY PRESS DEVICE EA TUBING A7037 US MED US MED USED WITH 6 INC INC POSITIVE AIRWAY PRESSURE DEVICE FACE MASK A7031 US MED US MED 6 INC INC INTERFACE REPLCMT FULL FACE MASK EA HEADGEAR A7035 US MED US MED USED 6 INC INC W/POSITIV E AIRWAY PRESSURE DEVICE PHRM Q0513 MED 4 MED 4 DISPENSIN [...] 6 HOME INC HOME INC COMPRESSO R CREATININ 46814 EMMY BOOTH E BLOOD 6 [facility] INC INC LOCM Q9967 EMMY BOOTH [phone] 6 [facility] MG/ML INC [place] [address] [facility] ABD[facility] & 6 MEDICAL KURT PELVIS IMAGING W/CONTRAS ASS T MATERIAL COLLECTIO 62481 EMMY BOOTH N VENOUS 6 [facility] BLOOD INC INC VENIPUNCT URE RADEX 89287 EMMY BOOTH SACRUM & 6 [facility]OS[facility] COCCYX INC INC MINIMUM [address] [place] [address] EMMY BOOTH UREA 6 [facility]OS[facility] NITROGEN INC INC QUANTITAT SATHISH LANCETS A4259 [facility] PER BOX [address] [place] [address] MEDICAL MEDICAL SUPPLY SUPPLY SPRING-PO A4258 [facility] WERED [address] [place] [address] DEVICE MEDICAL MEDICAL FOR SUPPLY SUPPLY LANCET EACH REPL JACKELIN A4233 [facility] ALKALINE [address] [place] [address] NOT J MEDICAL MEDICAL CELL AMINATA SUPPLY SUPPLY BG MON OWND PT BLD GLU A4253 [facility] TEST/REAG [address] [place] [address] T STRIPS MEDICAL MEDICAL HOME BLD SUPPLY SUPPLY GLU MON-50 NORMAL A4256 [facility] LOW AND [address] [place] [address] HIGH MEDICAL MEDICAL CALIBRATO SUPPLY SUPPLY R SOLUTION/ CHIPS PHRM Q0513 MED 4 MED 4 DISPENSIN [...] 6 HOME INC HOME INC COMPRESSO R PHRM Q0513 MED 4 MED 4 DISPENSIN 6 HOME INC HOME INC G FEE INHALATIO N RX; PER 30 DAYS ADMN SET A7005 MED 4 MED 4 W/SM VOL 6 HOME INC HOME INC NONFILTR NEBULIZR NON-DISPB L IPRATROPI J7644 MED 4 MED 4 UM 6 HOME INC HOME INC BROMIDE INHAL NON-CP U DOSE PER MG ALBUTEROL J7613 MED 4 MED 4 INHAL 6 HOME INC HOME INC NON-CP PROD THRU DME U DOSE 1 MG NEBULIZER E0570 MED 4 MED 4 WITH 6 HOME INC HOME INC COMPRESSO R PHRM Q0513 MED 4 MED 4 DISPENSIN [...] 6 HOME INC HOME INC COMPRESSO R PHRM Q0513 MED 4 MED 4 DISPENSIN [...] 5 HOME INC HOME INC COMPRESSO R PHRM Q0513 MED 4 MED 4 DISPENSIN 5 HOME INC HOME INC G FEE INHALATIO N RX; PER 30 DAYS ADMN SET A7003 MED 4 MED 4 [...] INC HOME INC COMPRESSO R TECHNETIU A9541 [facility] TC-99M 5 [facility] COLLOID DX UP TO 20 MCI GASTRIC 01335 [facility] [place] MAT EMPTYING 5 RADIOLOGY IMAGING STUDY ADMN SET A7003 MED 4 MED 4 [...] FEE INHALATIO N RX; PER 30 DAYS CREATININ 90458 [facility] E BLOOD 5 [facility] JOSÉ JOSÉ INJECTION A9579 [facility] 5 [facility] GADOLINIU [place] JOSÉ M BASED MR CONTRAST [place] [address] [facility] [place] [facility] MAT ABDOMEN 5 RADIOLOGY W/O & W/CONTRAS T MATERIAL COLLECTIO 23150 [facility] N VENOUS 5 [facility] BLOOD JOSÉ JOSÉ VENIPUNCT URE COLLECTIO 38298 [facility] N VENOUS 5 [facility] BLOOD [place] VENIPUNCT URE C-REACTIV 06995 [facility] E PROTEIN 5 [facility] JOSÉ JOSÉ SEDIMENTA 56784 [facility] TION RATE 5 [facility] RBC JOSÉ JOSÉ AUTOMATED FILTER A7013 MED 4 MED 4 DISPOSABL 5 HOME INC HOME INC W/AREOSOL COMPRESS/ US GENERATOR AREO MASK A7015 MED 4 MED 4 USED W/ 5 HOME INC HOME INC DME NEB ADMN SET A7003 MED 4 MED 4 SM VOL HOME INC HOME INC NONFILTR PNEUMAT NEBULIZR DISPBL ADMN SET A7005 MED 4 MED 4 W/SM VOL 5 HOME INC HOME INC NONFILTR NEBULIZR NON-DISPB L PHARM G0333 MED 4 MED 4 DISPEN 5 HOME INC HOME INC FEE INHAL RX; INITIAL 30-DAY SUPPLY IPRATROPI J7644 MED 4 MED 4 UM 5 HOME INC HOME INC BROMIDE INHAL NON-CP U DOSE PER MG ALBUTEROL J7613 MED 4 MED 4 INHAL 5 HOME INC HOME INC NON-CP PROD THRU DME U DOSE 1 MG RADEX 37223 [facility] ALL SMALL 5 MEDICAL INTESTINE IMAGING ASS W/MULTIPL E SERIAL IMAGES INJECTION J2405 EMMY BOOTH 5 [facility] ONDANSETR INC INC ON HCL [place] [address] [place] [address] EMMY BOOTH ABDOMEN & 5 [facility] PELVIS INC INC W/[place] [address] EMMY BOOTH LIPASE 5 [facility] [place] [place] [address] EMMY BOOTH AMYLASE 5 [facility] INC INC URNLS DIP 10406 EMMY BOOTH 5 [facility] STICK/TAB INC INC LET REAGENT AUTO MICROSCOP Y BLOOD 17861 EMMY BOOTH COUNT 5 [facility] COMPLETE INC INC AUTO&AUTO DIFRNTL WBC COMPREHEN 12327 EMMY BOOTH SIVE 5 [facility] METABOLIC INC INC PANEL THERAPEUT 20537 EMMY BOOTH IC 5 [facility] INJECTION INC INC IV PUSH EACH NEW DRUG THER 26832 EMMY BOOTH PROPH/DX 5 [facility] NJX IV INC INC PUSH SINGLE/1S T SBST/DRUG REPL JACKELIN A4233 UNITED UNITED ALKALINE 5 STATES STATES NOT J MEDICAL MEDICAL CELL AMINATA SUPPLY SUPPLY BG MON OWND PT SPRING-PO A4258 UNITED UNITED WERED 5 STATES STATES DEVICE MEDICAL MEDICAL FOR SUPPLY SUPPLY LANCET EACH BLOOD 67361 LAB DECLAN LAB DECLAN COUNT 5 [facility] COMPLETE [facility] HOLDINGS AUTOMATED BLOOD 37361 [facility] OCCULT 5 COUNTY NAN PEROXIDAS URGENT E ACTV TREAT QUAL FECES 1 DETER COLLECTIO 26195 [facility] N VENOUS 5 [facility] BLOOD URGENT VENIPUNCT TREAT URE NORMAL A4256 [facility] LOW AND 5 MEDICAL MEDICAL HIGH CALIBRATO R SOLUTION/ CHIPS BLD GLU A4253 [facility] TEST/REAG 5 MEDICAL MEDICAL T STRIPS HOME BLD GLU MON-50 REPL JACKELIN A4233 ARRIVA ARRIVA ALKALINE 5 MEDICAL MEDICAL NOT J CELL AMINATA BG MON OWND PT LANCETS A4259 ARRIVA ARRIVA PER BOX 5 MEDICAL MEDICAL OF 100 TUBING A7037 US MED US MED USED WITH 5 INC INC POSITIVE AIRWAY PRESSURE DEVICE FACE MASK A7031 US MED US MED 5 INC INC INTERFACE REPLCMT FULL FACE MASK EA FULL FACE A7030 US MED US MED MASK 5 INC INC USED W/POS ARWAY PRESS DEVICE EA FILTER A7039 US MED US MED NON 5 INC INC DISPBL USED W/POS AR[place]AY PRESS DEVICE FILTER A7038 US MED US MED DISPBL 5 INC INC USED W/POS AR[place]AY PRESSURE DEVICE SPECIAL 14706 [facility] STAIN 5 HIPOLITO & EDGAR GROUP 1 DUBILIER MICROORGA NISMS I&[place] [address] [facility] ABDOMEN & 5 MEDICAL OMAR PELVIS IMAGING W/O ASS CONTRAST MATERIAL ANES 44031 [facility] UPPER GI 5 ANESTH NIALL ENDOSCOPY OF THE PROXIMAL BLUE TO DUODENUM INITIAL 91695 [facility] 5 PHYSICIAN JIL CARE/DAY S GROUP 30 MINUTES EGD 23994 [facility] TRANSORAL 5 PHYSICIAN JIL BIOPSY S GROUP [place]INGLE[place] [address] [facility] SURG 5 HIPOLITO & EDGAR PATHOLOGY DUBILIER GROSS&CECY ROSCOPIC EXAM RADEX 83514 [facility] ABDOMEN 5 MEDICAL OMAR COMPL IMAGING W/DCBTS&/ ASS ERC VIEWS RADEX ABD 11195 [facility] [place] JAYLEEN CHR COMPL 5 RADIOLOGY AQT ABD W/S/E/D VIEWS 1 [facility] 90796 MEANS BUTROS RETROPERI 5 ADULT JONNY TONEAL PRIMARY REAL TIME CARE CLI W/[place] [address] [facility] [place] JAR[place] ABDOMEN & 5 RADIOLOGY RAY PELVIS W/CONTRAS T MATERIAL ECG 81214 [facility] ROUTINE 5 SHANNON AP ECG EMERGENCY W/LEAST PHYS 12 LDS I&R ONLY BLD GLU A4253 [facility] [place] TEST/REAG 5 STATES STATES T STRIPS MEDICAL MEDICAL HOME BLD SUPPLY SUPPLY GLU MON-50 NORMAL A4256 [facility] [place] LOW AND 5 STATES STATES HIGH MEDICAL MEDICAL CALIBRATO SUPPLY SUPPLY R SOLUTION/ CHIPS LANCETS A4259 [place] PER BOX [address] [place] [address] MEDICAL MEDICAL SUPPLY SUPPLY RADIOLOGI 50517 [facility] [place] STEPHANY C EXAM 5 RADIOLOGY CAR CHEST 2 VIEWS FRONTAL&L ATERAL INJECTION J2001 [address] LIDOCAINE HCL INTRAVENO US INFUS 10 MG BLOOD [address] HEMATOCRI T INJECTION J3010 [address] CITRATE 0.1 MG INJECTION J2250 [address] [place]AZOL[place] HCL PER 1 MG BASIC [address] PANEL CALCIUM IONIZED BLOOD [address] PLATELET AUTOMATED GUIDE C[address] [place] [address] [facility] L HRT & [address] [place] [address] ARTS W/NJX & ANGIO IMG S&I CLOSURE C[address] VASCULAR INTRDUCR/ C18[address] NOT GUID INTRACARD EP NON-LASR NASL A7034 BENJIE WALDROP INTRFCE 5 HOME HOME POS [facility]ICAL PRSS EQUIPME EQUIPME DEVC W/WO HEAD STRAP BASIC [address] CALCIUM TOTAL COLLECTIO [address] [facility] N VENOUS [address] [place] [address] VENIPUNCT URE NORMAL A4256 ARRIVA ARRIVA LOW AND 5 MEDICAL MEDICAL HIGH CALIBRATO R SOLUTION/ CHIPS BLD GLU A4253 ARRIVA ARRIVA TEST/REAG 5 MEDICAL MEDICAL T STRIPS HOME BLD GLU MON-50 LANCETS A4259 ARRIVA ARRIVA PER BOX 5 MEDICAL MEDICAL OF 100 [place] [address] [place] [place] [facility] 5 [facility] PANEL DUP-SCAN 91952 GUERRERO HELMS HELMS GUERRERO XTR VEINS 5 COMPLETE CONSULTIN G SRV BILATERAL STUDY BLOOD 03664 JEROME MARISABEL COUNT 5 [facility] AUTO&AUTO DIFRNTL WBC NATRIURET 09874 [facility] IC [address] [place] [address] HOSPITAL COLLECTIO 02395 [facility] N VENOUS 5 [facility] VENIPUNCT URE RADIOLOGI 90002 [facility] [place] [facility] C EXAM 5 RADIOLOGY CHEST 2 VIEWS FRONTAL&L ATERAL ECG 17472 GUERRERO SCOOTER FOWLER ROUTINE 5 MD CAMPBELL ECG CONSULTIN W/LEAST G SERV 12 LDS W/I&R CV STRS 30663 [facility] 5 [facility] XERS&/OR HOSPITAL HOSPITAL RX CONT ECG TRCG ONLY COLLECTIO 39298 [facility] N VENOUS 5 [facility] VENIPUNCT URE CV STRS 20245 GUERRERO HELMS HELMS GUERRERO TST 5 XERS&/OR CONSULTIN RX CONT G SRV ECG I&R ONLY NONINVASI 81382 [facility] VE 5 [facility] EAR/PULSE HOSPITAL HOSPITAL OXIMETRY OVERNIGHT MONITOR HEMOGLOBI 00256 [facility] N [address] [place] [address] SAE A1C MYOCARDIA 21211 GUERRERO HELMS HELMS GUERRERO L SPECT 5 MULTIPLE CONSULTIN STUDIES G SRV TECHNETIU A9500 [facility] M TC-99M [address] [place] [address] DX PER STUDY DOSE HEADGEAR A7035 US MED US MED USED 5 INC INC W/POSITIV E AIRWAY PRESSURE DEVICE FACE MASK A7031 US MED US MED 5 INC INC INTERFACE REPLCMT FULL FACE MASK EA TUBING A7037 US MED US MED USED WITH 5 INC INC POSITIVE AIRWAY PRESSURE DEVICE FULL FACE A7030 US MED US MED MASK 5 INC INC USED W/POS ARWAY PRESS DEVICE EA ELIG CLIN G8427 MEANS BUTROS ATTSTS 5 ADULT JONNY DOC M REC PRIMARY OBTD CARE CLI UPD/REV PT MEDS ECG 13549 GUERRERO HELMS HELMS GUERRERO ROUTINE 5 MD ECG CONSULTIN W/LEAST G SRV 12 LDS W/I&R ELIG CLIN G8427 MEANS BUTROS ATTSTS 4 ADULT JONNY DOC M REC PRIMARY OBTD CARE CLI UPD/REV PT MEDS FULL FACE A7030 BENJIE BENJIE MASK 2 HOME HOME USED MEDICAL MEDICAL W/POS EQUIPME EQUIPME ARWAY PRESS DEVICE EA FILTER A7038 BENJIE BENJIE DISPBL 2 HOME HOME USED MEDICAL MEDICAL W/POS EQUIPME EQUIPME ARWAY PRESSURE DEVICE FILTER A7039 BENJIE BENJIE NON 2 HOME HOME DISPBL MEDICAL MEDICAL USED EQUIPME EQUIPME W/POS ARWAY PRESS DEVICE HEADGEAR A7035 BENJIE BENJIE USED 2 HOME HOME W/POSITIV MEDICAL MEDICAL E AIRWAY EQUIPME EQUIPME PRESSURE DEVICE LIPID 89551 [employer], PANEL 2 ASSEMBLER UNIT ASSEMBLER UNIT L[facility]I E[facility]IOTT CO HOS CO HOS COMPREHEN 84051 [employer], SIVE 2 ASSEMBLER UNIT ASSEMBLER UNIT METABOLIC L[facility]I ELLIOTT PANEL CO HOS CO HOS BLOOD 40818 [employer], COUNT 2 ASSEMBLER UNIT ASSEMBLER UNIT COMPLETE LEXI ELLIOTT AUTO&AUTO CO HOS CO HOS DIFRNTL WBC 25 45131 [employer], HYDROXY 2 ASSEMBLER UNIT ASSEMBLER UNIT INCLUDES LEXI ELLIOTT FRACTIONS [place] [address] [employer], [employer], FREE 2 ASSEMBLER UNIT ASSEMBLER UNIT THYROXINE [facility] [address] [employer], THYROID 2 ASSEMBLER UNIT ASSEMBLER UNIT STIMULATI LEXI ELLIOTT NG CO HOS CO HOS HORMONE TSH COLLECTIO 11432 WORKS [facility] WORKS GEORGES N VENOUS 2 BLOOD VENIPUNCT URE ECG 57548 HELMS GUERRERO HLEMS GUERRERO ROUTINE 2 ECG W/LEAST 12 LDS W/I&R HEPATIC 79336 [facility] Who@, [facility] INC, FUNCTION 2 ASSEMBLER UNIT ASSEMBLER UNIT PANEL LEXI LEXI CO HOS CO HOS LIPID 46422 [facility] INC, PANEL 2 ASSEMBLER UNIT ASSEMBLER UNIT LEXI LEXI CO HOS CO HOS COMPREHEN 34326 [facility] INC, SIVE 2 ASSEMBLER UNIT ASSEMBLER UNIT METABOLIC LEXI LEXI PANEL CO HOS CO HOS URNLS DIP 33473 [facility] WORKS GEORGES 2 STICK/TAB LET RGNT NON-AUTO W/O MICRSCP BLOOD 45099 [facility] Who@, [facility] INC, COUNT 2 ASSEMBLER UNIT ASSEMBLER UNIT COMPLETE LEXI LEXI AUTO&AUTO CO HOS CO HOS DIFRNTL WBC BLOOD 23252 [facility] [facility] OCCULT 2 PEROXIDAS E ACTV QUAL FECES 1 DETER COLLECTIO 46828 [facility] WORKS GEORGES N VENOUS 2 BLOOD VENIPUNCT URE CONTINUOU E0601 BENJIE WALDROP S 2 HOME HOME POSITIVE MEDICAL MEDICAL AIRWAY EQUIPME EQUIPME PRESSURE DEVICE CONTINUOU E0601 BENJIE WALDROP S 2 HOME HOME POSITIVE MEDICAL MEDICAL AIRWAY EQUIPME EQUIPME PRESSURE DEVICE DUP-SCAN 55572 [facility] ARTL JULISSA 2 EIDER CASIE ABDL/PEL/ RADIOLOGY SCROT&/RP ASSOCIAT R ORGN LMT RADIOLOGI 13469 [facility] C EXAM 2 EIDER CASIE CHEST 2 RADIOLOGY VIEWS ASSOCIAT FRONTAL&L ATERAL OBSERVATI 03904 [facility] WORKS GEORGES ON/INPATI 2 ENT HOSPITAL CARE 50 MINUTES HOSPITAL 85959 [facility] DISCHARGE 2 GIAN GIAN DAY MANAGEMEN T > 30 MIN CONTINUOU E0601 BENJIE WALDROP S 2 HOME HOME POSITIVE MEDICAL MEDICAL AIRWAY EQUIPME EQUIPME PRESSURE DEVICE SBSQ 85499 [facility] 2 GIAN GIAN CARE/DAY 35 MINUTES INITIAL 77932 [facility] 2 GIAN GIAN CARE/DAY 70 MINUTES DUP-SCAN 96497 HELMS GUERRERO HELMS GUERRERO XTR VEINS 2 UNILATERA L/LIMITED STUDY RADIOLOGI 14788 [facility], C EXAM 2 ASSEMBLER UNIT ASSEMBLER UNIT CHEST 2 LEXI LEXI VIEWS CO HOS CO HOS FRONTAL&L ATERAL ECG 40993 LINDA MCKEON ROUTINE 2 JIL JIL ECG W/LEAST 12 LDS I&R ONLY RADIOLOGI 65011 [facility], C 2 ASSEMBLER UNIT ASSEMBLER UNIT EXAMINATI LEXI LEXI ON FEMUR CO HOS CO HOS 2 VIEWS C-REACTIV 81638 [facility], E PROTEIN 2 ASSEMBLER UNIT ASSEMBLER UNIT LEXI LEXI CO HOS CO HOS COMPREHEN 02461 [facility], SIVE 2 ASSEMBLER UNIT ASSEMBLER UNIT METABOLIC LEXI LEXI PANEL CO HOS CO HOS CREATINE 71511 [facility], KINASE MB 2 ASSEMBLER UNIT ASSEMBLER UNIT FRACTION LEXI LEXI ONLY CO HOS CO HOS RADEX HIP 94491 [facility], 2 ASSEMBLER UNIT ASSEMBLER UNIT UNILATERA LEXI LEXI L CO HOS CO HOS COMPLETE MINIMUM 2 VIEWS SEDIMENTA 94357 [facility], TION RATE 2 ASSEMBLER UNIT ASSEMBLER UNIT RBC LEXI LEXI NON-AUTOM CO HOS CO HOS ATED CREATINE 84584 [facility], KINASE 2 ASSEMBLER UNIT ASSEMBLER UNIT TOTAL LEXI LEXI CO HOS CO HOS BLOOD 06681 [facility], COUNT 2 ASSEMBLER UNIT ASSEMBLER UNIT COMPLETE LEXI LEXI AUTO&AUTO CO HOS CO HOS DIFRNTL WBC MYOGLOBIN 16556 [facility], 2 ASSEMBLER UNIT ASSEMBLER UNIT LEXI LEXI CO HOS CO HOS NATRIURET 47854 [facility], IC 2 ASSEMBLER UNIT ASSEMBLER UNIT PEPTIDE [place] [address] [facility], [facility], TROPONIN 2 ASSEMBLER UNIT ASSEMBLER UNIT QUANTITAT LEXI LEXI SATHISH CO HOS CO HOS CATH PLMT 58017 [facility] L HRT & [address] [place] [address] ARTS W/NJX & ANGIO IMG S&I BASIC [address] PANEL CALCIUM IONIZED BLOOD [address] PLATELET AUTOMATED COLLECTIO 26353 [facility] N VENOUS [address] [place] [address] BLOOD VENIPUNCT URE BLOOD [address] HEMATOCRI T INJECTION J2001 [address] [place] HCL INTRAVENO US INFUS 10 MG INJECTION J3010 [address] CITRATE 0.1 MG INJECTION J2250 [address] [place] HCL PER 1 MG ECG 08343 HELMS GUERRERO HELMS GUERRERO ROUTINE 2 ECG W/LEAST 12 LDS W/I&R POLYSOM 31832 HELMS GUERRERO HELMS GUERRERO 6/>YRS 2 SLEEP W/CPAP 4/> ADDL MARINA ATTND CV STRS 29649 [facility] TST 2 [facility] XERS&/OR HOSPITAL HOSPITAL RX CONT ECG TRCG ONLY CV STRS 72846 HELMS GUERRERO HELMS GUERRERO TST 2 XERS&/OR RX CONT ECG I&R ONLY NONINVASI 73031 [facility] VE [address] [facility] [place] OXIMETRY OVERNIGHT MONITOR MYOCARDIA 97004 [facility] L SPECT 2 [facility] HOSPITAL STUDIES POLYSOM 21838 [facility] 6/>YRS 2 [facility] W/CPAP 4/> [place] [address] [facility], [facility], THYROID 2 ASSEMBLER UNIT ASSEMBLER UNIT STIMULATI LEXI ELLIOTT NG CO HOS CO HOS HORMONE TSH XTRNL ECG 78851 HELMS GUERRERO HELMS GUERRERO 2 CONTINUOU S RHYTHM W/I&R UP TO 48 HRS LIPID 62332 [facility], PANEL 2 ASSEMBLER UNIT ASSEMBLER UNIT LEXI BLACKMONS CO HOS CO HOS HUMDIFIR E0562 BENJIE BENJIE HEATED 2 HOME HOME USED MEDICAL MEDICAL W/POS EQUIPME EQUIPME ARWAY PRESSURE DEVICE TUBING A7037 BENJIE WALDROP USED WITH 2 HOME HOME POSITIVE MEDICAL MEDICAL AIRWAY EQUIPME EQUIPME PRESSURE DEVICE HEADGEAR A7035 BENJIE WALDROP USED 2 HOME HOME W/POSITIV MEDICAL MEDICAL E AIRWAY EQUIPME EQUIPME PRESSURE DEVICE NASL A7034 BENJIE WALDROP INTRFCE 2 HOME HOME POS ARWAY MEDICAL MEDICAL PRSS EQUIPME EQUIPME DE[place] W/[place] [address] [employer], IRON 2 ASSEMBLER UNIT ASSEMBLER UNIT [place] [address] [employer], FREE 2 ASSEMBLER UNIT ASSEMBLER UNIT THYROXINE LEXI LEXI CO HOS CO HOS 25 77448 [employer], HYDROXY 2 ASSEMBLER UNIT ASSEMBLER UNIT INCLUDES LEXI LEXI FRACTIONS CO HOS CO HOS IF PERFORMED CYANOCOBA 88234 [employer], CAESAR 2 ASSEMBLER UNIT ASSEMBLER UNIT VITAMIN LEXI LEXI B-12 CO HOS CO HOS THYROID 79206 [employer], HORM 2 ASSEMBLER UNIT ASSEMBLER UNIT UPTK/THYR LEXI LEXI OID CO HOS CO HOS HORMONE BINDING RATIO IRON 29147 [employer], BINDING 2 ASSEMBLER UNIT ASSEMBLER UNIT CAPACITY LEXI LEXI CO HOS CO HOS CONTINUOU E0601 BENJIE WALDROP S 2 HOME HOME POSITIVE MEDICAL MEDICAL AIRWAY EQUIPME EQUIPME PRESSURE DEVICE FILTER A7039 BENJIE WALDROP NON 2 HOME HOME DISPBL MEDICAL MEDICAL USED EQUIPME EQUIPME W/POS ARWAY PRESS DEVICE FILTER A7038 BENJIE WALDROP DISPBL 2 HOME HOME USED MEDICAL MEDICAL W/POS EQUIPME EQUIPME ARWAY PRESSURE DEVICE DUP-SCAN 24473 HELMS GUERRERO HELMS GUERRERO XTR VEINS 2 COMPLETE BILATERAL STUDY DUPLEX 87297 HELMS GUERRERO HELMS GUERRERO SCAN 2 EXTRACRAN IAL ART COMPL BI STUDY XTRNL ECG 44741 HELMS GUERRERO HELMS GUERRERO & 48 HR 2 RECORDING ECG 39731 HELMS GUERRERO HELMS GUERRERO ROUTINE 2 ECG W/LEAST 12 LDS W/I&R [place] [address] [facility] ABDOMEN & 2 JACK PELVIS RADIOLOGY W/O ASSOCIAT CONTRAST [facility] 27018 WORKS GEORGES WORKS GEORGES DISCHARGE 2 DAY MANAGEMEN T > 30 MIN ECG 02056 WORKS GEORGES WORKS GEORGES ROUTINE 2 ECG W/LEAST 12 LDS I&R ONLY RADIOLOGI 90475 [facility] C EXAM 2 [facility] CHEST 2 RADIOLOGY VIEWS ASSOCIAT FRONTAL&[place] [address] [facility] HEAD/BRAI 2 JACK N W/O RADIOLOGY CONTRAST ASSOCIAT MATERIAL NEBULIZER E0570 MT MED MT MED WITH 2 EQUIPMENT EQUIPMENT COMPRESSO INC INC R ADMN SET A7005 MT MED MT MED W/SM VOL 2 EQUIPMENT EQUIPMENT NONFILTR INC INC NEBULIZR NON-DISPB L THERAPEUT 16724 [employer], [employer], IC PX 1/> 2 ASSEMBLER UNIT ASSEMBLER UNIT AREAS LEXI ELLIOTT EACH 15 CO HOS CO HOS MIN EXERCISES NONINVASI 75652 AHMED ADN AHMED ADN VE 2 EAR/PULSE OXIMETRY SINGLE DETER THERAPEUT 14029 LEXI ELLIOTT IC PX 1/> 2 CO CO AREAS [facility] EACH 15 MIN EXERCISES RADIOLOGI 26915 [facility] C EXAM 2 [facility] CHEST 2 RADIOLOGY VIEWS ASSOCIAT FRONTAL&L ATERAL SEDIMENTA 93591 LEXI ELLIOTT TION RATE 1 CO CO [facility] NON-AUTOM ATED RHEUMATOI 61133 LEXI ELLIOTT D FACTOR 1 CO CO QUANTITAT [facility] SATHISH ANTINUCLE 97027 LEXI ELLIOTT AR 1 CO CO ANTIBODIE [facility] S SARAH RADEX 94195 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 Y & Y & CHROMATOG BIODIAGNO BIODIAGNO RAPHIC; STICS STICS ANY NUMBER PT ENC URNLS DIP 51401 TAMAREN TAMAREN 1 Jun STICK/TAB LET RGNT NON-AUTO W/O MICRSCP CREATININ 02768 LEXI ELLIOTT E BLOOD 1 [place] [facility] [place] [address] LEXI ELLIOTT ABDOMEN & 1 CO NV PELVIS [facility] W/O CONTRST 1/> [place] [address] LEXI ELLIOTT UREA 1 CO NV NITROGEN [facility] QUANTITAT SATHISH RINGERS J7120 [place] CO[facility] LACTATE 1 CO NV INFUSION [facility] HOSPITAL UP TO [address] [place] [address] AMERIPATH JULIUS SURG 1 [place] INC CAR PATHOLOGY GROSS&CECY ROSCOPIC EXAM INJECTION J1100 [place] [facility] 1 CO NV DEXAMETHO [facility] SONE SODIUM PHOSPHATE 1 MG INJECTION J2270 [facility] MORPHINE 1 [facility] SULFATE [facility]PITAL UP TO 10 MG UNCLASSIF J3490 [facility] IED DRUGS 1 [facility] INJECTION J1885 [facility] 1 [facility] KETOROLAC [facility] TROMETHAM INE PER 15 MG INJECTION J3010 [facility] FENTANYL 1 [facility] CITRATE [facility] 0.1 MG INJECTION J2405 [facility] 1 [facility] ON HCL PER 1 MG GONADOTRO 62638 [place] [facility] PIN 1 CO NV CHORIONIC [facility] QUALITATI VE ANES 27334 [place] [facility] LOWER 1 [facility] INTESTINE [facility] ENDOSCOPY DISTAL DUODENUM HEMORRHOI 03996 [place] EHSAN DECTOMY 1 NV HOSP LAR INTERNAL RUBBER BAND LIGATIONS COLSC FLX 74532 CO[facility] COLEMAN 1 CO CO W/REMOVAL HOSPITAL HOSPITAL LESION BY HOT BX FORCEPS NONINVASI 64923 LEXI PATEL VE [address] [place] [address] ENOCH EAR/PULSE RURAL OXIMETRY HEALTH SINGLE DETER SPMTRY 23919 L[facility] ELL[facility]OTT W/VC 1 CO NV EXPIRATOR [facility] Y JULISSA W/WO MXML VOL VNTJ ECHO 02508 GUERRERO HELMS HELMS GUERRERO TTHRC R-T 1 2D CONSULTIN W/WOM-MOD G SRV E COMPL SPEC&COLR D ECHO 81885 LEXI ELLIOTT TTHRC R-T 1 CO CO [address] [place] [address] W/WOM-MOD E COMPL SPEC&COLR D COLLECTIO 57952 LEXI ELLIOTT N VENOUS 1 CO NV BLOOD [facility] VENIPUNCT URE LIPID 78600 L[facility]I ELLIOTT PANEL 1 [facility] COMPREHEN 86210 LEXI ELLIOTT SIVE 1 CO CO METABOLIC [facility]PITAL PANEL LIPOPROTE 45806 L[facility] ELLIOTT IN DIRECT 1 [facility] MEASUREME NT LDL CHOLESTER OL DUP-SCAN 09352 LEXI ELLIOTT XTR VEINS 1 CO CO [facility] BILATERAL STUDY HEMOGLOBI 83835 LEXI ELLIOTT N 1 [facility] [place] [place] [address] LEXI ELLIOTT THYROID 1 CO NV STIMULATI [facility] NG HORMONE TSH ECG 43623 GUERRERO HELMS HELMS GUERRERO ROUTINE 1 ECG CONSULTIN W/LEAST G SRV 12 LDS W/I&R Encounters Encounter Start End Date Code Location Performer Type Date [facility] [address] T OFFICE [address] [facility] 7 7 T VISIT ORTHOPAED 15 ICS PSC MINUTES [facility] [place] [place] - 7 7 [facility] 08804 [facility] 7 T VISIT ORTHOPAED 15 ICS PSC MINUTES OFFICE 14804 [facility] 7 7 T VISIT ORTHOPAED 15 ICS PSC MINUTES OFFICE 86851 [facility] 7 7 CULAR & T VISIT SLEEP 25 CONSU MINUTES [facility] [address] T OFFICE [address] [facility] 7 7 PHYSICIAN T NEW 30 S GROUP MINUTES OFFICE 28119 GUERRERO GODINEZ 7 7 T VISIT CONSULTIN 25 G SRV MINUTES [facility]OSPITAL [facility] - 7 7 [facility] EMMY - 7 7 [facility] [place] - 7 7 [facility] T OFFICE 06495 GUERRERO GODINEZ 7 7 T VISIT CONSULTIN 25 G SRV MINUTES OFFICE 39118 L[facility]I ESCOBEDO OUTPATIEN 6 6 [facility] T VISIT URGENT 15 TREAT MINUTES OFFICE 69530 L[facility] ESCOBEDO OUTPATIEN 6 6 [facility] T VISIT URGENT 25 TREAT MINUTES OFFICE 05392 L[facility] ESCOBEDO OUTPATIEN 6 6 [facility] T VISIT URGENT 15 TREAT MINUTES OFFICE 59822 [facility] CHONG OUTPATIEN 6 6 MD EMEKA, T VISIT PSC 10 MINUTES HOSPITAL EMM[facility] - 6 6 [facility] 87715 LA[facility] STEELE OUTPATIEN 6 6 MD EMEKA, T VISIT PSC 25 MINUTES HOSPITAL EMM[facility] - 6 6 [facility] 99732 LAURA STEELE OUTPATIEN 6 6 MD EMEKA, T VISIT PSC 15 MINUTES HOSPITAL EMMY - 6 6 [facility] 52154 LEXI GUZMÁNPATIEN 6 6 [facility] T VISIT URGENT 25 TREAT MINUTES OFFICE 75996 LAURA CHONG OUTPATIEN 6 6 MD EMEKA, T VISIT PSC 10 MINUTES OFFICE 86343 LEXI GUZMÁNPATIEN 6 6 [facility] T VISIT URGENT 25 TREAT MINUTES OFFICE 94177 LAURA COY OUTPATIEN 6 6 MD EMEKA, T VISIT PSC 15 MINUTES OFFICE 69834 L[facility]I ESCOBEDO OUTPATIEN 6 6 [facility] T VISIT URGENT 25 TREAT MINUTES OFFICE 97640 LAURA TINY STEELE OUTPATIEN 6 6 MD EMKEA, T VISIT PSC 25 MINUTES OFFICE 02240 LAURA TINY CRI OUTPATIEN 5 5 MD EMEKA, T NEW 45 PSC MINUTES OFFICE 73368 LEXI ESCOBEDO OUTPATIEN 5 5 [facility] T VISIT URGENT 25 TREAT MINUTES [facility] 5 5 [facility] OUTPATIEN JOSÉ T OFFICE 69968 LEXI ESCOBEDO OUTPATIEN 5 5 [facility] T VISIT URGENT 15 TREAT MINUTES OFFICE 01144 L[facility]I ESCOBEDO OUTPATIEN 5 5 [facility] T VISIT URGENT 25 TREAT MINUTES OFFICE 57206 L[facility]I ESCOBEDO OUTPATIEN 5 5 [facility] T VISIT URGENT 25 TREAT MINUTES [facility] - 5 [facility] OUTPATIEN JOSÉ T OFFICE 77503 LEXI ESCOBEDO OUTPATIEN 5 5 [facility] T VISIT URGENT 25 TREAT MINUTES OFFICE 34873 [facility] OUTPATI[facility] 5 5 [facility] T NEW 30 MEDICAL MINUTES G [facility] - 5 5 [facility] OUTPATIEN JOSÉ T OFFICE 69862 LEXI ESCOBEDO OUTPATIEN 5 5 [facility] T VISIT URGENT 10 TREAT MINUTES OFFICE 90681 L[facility] ESCOBEDO OUTPATIEN 5 5 [facility] T VISIT URGENT 25 TREAT MINUTES OFFICE 34606 L[facility]I ESCOBEDO OUTPATIEN 5 5 [facility] T VISIT URGENT 25 TREAT MINUTES HOSPITAL EMMY - 5 5 [facility] OUTPATIEN INC T OFFICE 05749 LEXI ESCOBEDO OUTPATIEN 5 5 [facility] NAN T VISIT URGENT 25 TREAT MINUTES HOSPITAL EMMY - 5 5 [facility] OUTPATIEN INC T EMERGENCY 45885 EMM[facility] 5 5 [facility] T VISIT HIGH/URGE NT SEVERITY OFFICE 21641 LEXI ESCOBEDO OUTPATIEN 5 5 [facility] T VISIT URGENT 15 TREAT MINUTES OFFICE 46963 L[facility]I ESCOBEDO OUTPATIEN 5 5 [facility] T VISIT URGENT 25 TREAT MINUTES OFFICE 48481 L[facility]I ESCOBEDO OUTPATIEN 5 5 [facility] T VISIT URGENT 25 TREAT MINUTES OFFICE 15379 LEXI ESCOBEDO OUTPATIEN 5 5 [facility] T VISIT URGENT 25 TREAT MINUTES OFFICE 10593 L[facility]I ESCOBEDO OUTPATIEN 5 5 [facility] T VISIT URGENT 25 TREAT MINUTES OFFICE 76936 LEXI ESCOBEDO OUTPATIEN 5 5 [facility] T NEW 20 URGENT MINUTES TREAT EMERGENCY 35190 EMM[facility] LU[place], 5 5 [facility] T VISIT P HIGH/URGE NT SEVERITY OFFICE 47388 [facility] OUT[facility]IEN 5 5 ADULT JONNY T VISIT PRIMARY 15 CARE CLI MINUTES EMERGENCY 75495 [facility] FERMIN DEPT 5 5 [facility] VISIT EMERGENCY HIGH SERVI SEVERITY& THREAT FUNCJ EMERGENCY 17830 [facility] 5 5 [facility] EMERGENCY T VISIT PHYS HIGH/URGE NT SEVERITY OFFICE 35202 [facility]ANS [facility] OUTPATIEN 5 5 ADULT JONNY T VISIT PRIMARY 25 CARE CLI MINUTES HOSPITAL [address] OUTPATIEN T OFFICE 95288 [facility] 5 5 MD CAMPBELL T VISIT CONSULTIN 25 G SERV MINUTES OFFICE 45078 MEANS BUTROS OUTPATIEN 5 5 ADULT JONNY T VISIT PRIMARY 25 CARE CLI MINUTES OFFICE 15782 GUERRERO HELMS HELMS GUERRERO OUTPATIEN 5 5 T VISIT CONSULTIN 15 G SRV MINUTES [facility] 5 5 [facility] 5 5 [facility] T OFFICE 39377 GUERRERO HELMS FOWLER OUTPATIEN 5 5 MD CAMPBELL T VISIT CONSULTIN 25 G SERV MINUTES [facility] - 5 5 [facility] T OFFICE 18361 MEANS BUTROS OUTPATIEN 5 5 ADULT JONNY T VISIT PRIMARY 25 CARE CLI MINUTES OFFICE 96990 GUERRERO HELMS HELMS GUERRERO OUTPATIEN 5 5 T VISIT CONSULTIN 25 G SRV MINUTES OFFICE 23054 MEANS BUTROS OUTPATIEN 4 4 ADULT JONNY T VISIT PRIMARY 25 CARE CLI MINUTES OFFICE 72036 MEANS BUTROS OUTPATIEN 4 4 ADULT JONNY T VISIT PRIMARY 15 CARE CLI MINUTES OFFICE 17528 WORKS GEORGES WORKS GEORGES OUTPATIEN 2 2 T VISIT 25 MINUTES [facility] - 2 2 [facility] [place] [facility] OFF[facility] 01725 HELMS GUERRERO HELMS GUERRERO OUTPATIEN 2 2 T VISIT 25 MINUTES [facility] - 2 2 [facility] [place] [facility] OFF[facility] 85197 WORKS GEORGES WORKS GEORGES OUTPATIEN 2 2 T VISIT 25 MINUTES [facility] - 2 2 [facility] [place] [facility] OFFICE 36532 KERN CAR KERN CAR OUTPATIEN 2 2 T VISIT 15 MINUTES [facility] - 2 2 [facility] [place] [facility] HOS EMERGENCY 86573 LINDA MCKEON DEPT 2 2 JIL JIL VISIT HIGH SEVERITY& THREAT [facility] 2 2 [facility] T OFFICE 86116 HELMS GUERRERO HELMS GUERRERO [facility]PATIEN 2 2 T VISIT 25 MINUTES HOSPITAL [facility] - 2 2 [facility] J[facility]OME - 2 2 [facility] 2 [facility] 75806 HELMS GUERRERO HELMS GUERRERO OUTPATIEN 2 2 T VISIT 25 MINUTES OFFICE 58705 AHDAVID MCALLISTER AHMED ADElizabeth OUTPATIEN 2 2 T VISIT 15 MINUTES [facility] 2 2 [facility] [place] [facility] 2 2 [facility] T OFFICE 95111 NETTIE MCALLISTER OUTPATIEN 2 2 T VISIT 25 MINUTES OFFICE 41725 [facility] DAVINA OUTPATIEN 1 1 [facility] T [facility]ISIT 15 MINUTES [facility] [place] - 1 1 [facility] T OFFICE 82436 BELÉN MELISSA OUTPATIEN [address] [facility] 30 MINUTES OFFICE 42374 [place] PATEL OUTPATIEN 1 1 [facility] VISIT RURAL 25 [facility] [place] - 1 1 [facility] - 1 1 [facility] T OFFICE 82927 [place] PATEL [facility]PATIEN 1 1 [facility] VISIT RURAL 15 HEALTH MINUTES [facility] [place] - 1 1 [facility] T OFFICE 16776 [facility] 1 1 [facility] 60 MIN[facility]ES [facility] [place] - 1 1 [facility] T OFF[facility] 06286 GUERRERO HELMS HELMS GUERRERO [facility] 1 1 MD Kemi HOLDEN 45 CONSULTIN MINUTES G [facility] OFF[facility] 46846 [facility] 8 8 , CHAUNCEY GAINES T NEW 20 MINUTES
--- OUTSIDE RECORDS SUMMARY | 2017-04-02 11:38 | External Medical Summary Rpt | CCD ---
Author Author , TRISTIAN LUBIN Address Unknown Phone [email or web address] Care Team Providers Care Chinese Instructor Name Role Phone AHMED ADN, AHMED ADN [...] Unavailable Unavailable KURT SANTIAGO, ELISABETH Unavailable Unavailable NYAANA KOVACS Unavailable Unavailable [facility] ARGUETA, ARGUETA Unavailable Unavailable ARGUETA ALL, ARGUETA ALL Unavailable Unavailable [facility] Unavailable Unavailable [facility]OSPITAL, [facility] HAMMOND CAR, HAMMOND Unavailable Unavailable [facility] [...] [facility] Unavailable Unavailable [facility], [facility] DAVINA LAYNE, Unavailable Unavailable DAVINA LAYNE, Unavailable Unavailable KATHY FLORES Unavailable Unavailable [facility], Unavailable Unavailable [facility], Unavailable Unavailable [facility] JR RAQUEL LUNA, Unavailable Unavailable JR RAQUEL LUNA GANTLEY Unavailable Unavailable ENOCH JASON, Unavailable Unavailable KENDALL JASON FOWLER, FOWLER Unavailable Unavailable FOWLER SHANNAN, Unavailable Unavailable FOWLER SHANNAN FOWLER AP, Unavailable Unavailable FOWLER AP [facility] Unavailable Unavailable INC, [facility] P, [facility] SRIVASTAVA EDGAR, SRIVASTAVA Unavailable Unavailable EDGAR [facility], Unavailable Unavailable [facility] CHRISTY, CHRISTY Unavailable Unavailable GREGG, GREGG Unavailable Unavailable GREGG NAN, GREGG Unavailable Unavailable NAN LINDA JIL, LINDA Unavailable Unavailable JIL LINDA JIL, LINDA Unavailable Unavailable JIL EHSAN LAR, EHSAN Unavailable Unavailable [facility] KERN CAR, KERN CAR Unavailable Unavailable KRIMM FERMIN, KRIMM FERMIN Unavailable Unavailable [facility] Unavailable Unavailable [facility] & Unavailable Unavailable [facility] TINY CRI, TINY CRI Unavailable Unavailable DALLAS EDGAR, DALLAS Unavailable Unavailable EDGAR [facility] Unavailable Unavailable [facility]AT, [facility] Unavailable Unavailable [facility], [facility] Unavailable Unavailable [facility] Unavailable Unavailable [facility] Unavailable Unavailable [facility], Unavailable Unavailable [facility] YAIR IGAN, YAIR Unavailable Unavailable GIAN YAIR GIAN, YAIR Unavailable Unavailable [facility], Unavailable Unavailable [facility] Unavailable Unavailable HEALTH, [facility] Unavailable Unavailable URGENT TREAT, [facility] [...] Unavailable Unavailable EM[facility], [facility], Unavailable Unavailable [facility], [facility] Un[facility] Unavailable [place], [facility] Unavailable Unavailable [facility], [facility] JARRETT RAYJARRETT Unavailable Unavailable RAY [...] Unavailable Unavailable [facility] # Unavailable Unavailable [id number], [facility] # [id number] [facility], [facility] Unavailable Unavailable [facility], [facility] Unavailable Unavailable YEASAYER CECY, Unavailable Unavailable YEASAYER CECY CHRISTO MAT, CHRISTO MAT Unavailable Unavailable Purpose Continuity of Care Document - 07-18-2007 through 2016 Problems Code Diagnosis DOS Provider Status 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 [id number] OTHER 03-09-2017 [facility] E039 HYPOTHYROID 02-23-2017 [facility] UNSPECIFIED E119 TYPE 2 02-23-2017 [facility] DIABETES [facility] MELLITUS WITHOUT COMPLICATIO NS E784 OTHER 02-23-2017 [facility] HYPERLIPIDE [facility] NELL G4733 OBSTRUCTIVE 02-23-2017 [facility] SLEEP [facility] APNEA ADULT PEDIATRIC I10 ESSENTIAL 02-23-2017 [facility] HYPERTENSIO N 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 J439 EMPHYSEMA 02-23-2017 [facility] UNSPECIFIED HOSPITAL M1990 UNSPECIFIED 02-23-2017 [facility] OSTEOARTHRI TIS UNSPECIFIED SITE 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 OTH 02-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 M545 LOW BACK 02-15-2017 [facility] PAIN [facility]OP[facility]IC S PSC N9489 OTH COND 02-14-2017 [facility] GEN ORGN & INC MENSTRUAL CYCL R0602 SHORTNESS 02-14-2017 [facility] R072 PRECORDIAL 02-14-2017 [facility] R0789 OTHER CHEST 02-14-2017 [facility] R102 PELVIC AND 02-14-2017 [place] [facility] I2510 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 I6523 OCCLUSION & 02-08-2017 [facility] STENOSIS LAR & SLEEP BILATERAL CONSU CAROTID ARTERIES J438 OTHER 02-08-2017 [facility] EMPHYSEMA LAR & SLEEP CONSU R2243 LOC 02-08-2017 [facility] SWELLING LAR & SLEEP MASS & LUMP CONSU LOWER LIMB BILATERAL H99209 ENCOUNTER 02-07-2017 [facility] SLOOP CAPTAIN EXAM PHYSICIANS GENERAL RTN GROUP W/O ABNORMAL FIND Z124 ENCOUNTER 02-07-2017 [facility] SCREENING MALIG NEOPLASM CERVIX R079 CHEST PAIN 02-06-2017 [facility] J63956 PAIN IN 01-29-2017 [facility] HELMS RIGHT LEG CONSULTING SRV S77478 PAIN IN 01-29-2017 [facility] HELMS LEFT LEG MD CONSULTING SRV 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 UPPER [...] LOCALIZED 10-31-2016 [facility] O48719 OTHER 10-05-2016 [facility] SOLUT[facility] [...] W/DIAB IN MONONEUROPA THY J189 PNEUMONIA 08-23-2016 [facility] UNSPEC[facility] ORGANISM [facility]ING [facility] J90 PLEURAL 08-23-2016 [facility] E[facility]ION [facility] NOT IMAGING ASS ELSEWHERE CLASSIFIED R918 OTHER 08-23-2016 [facility] NONSPECIFIC MEDICAL ABNORMAL IMAGING ASS FINDING OF LUNG FIELD J441 CHRONIC 08-22-2016 [facility] DZ W/EXACERBAT ION Z720 TOBACCO USE 08-22-2016 [facility] P R0902 HYPOXEMIA 08-21-2016 [facility] J0140 ACUTE 08-19-2016 [place] [facility] INC UNSPECIFIED R05 COUGH 08-19-2016 [facility] R42 DIZZINESS 08-19-2016 [facility] AND [facility]ICAL GIDDINESS IMAGING ASS R531 WEAKNESS 08-19-2016 [facility] I9589 OTHER 07-31-2016 [facility] HYPOTENSION HEALTH SOLUTIONS IN I340 NONRHEUMATI 07-25-2016 [facility] INSUFFICIEN CY I471 SUPRAVENTRI 07-25-2016 [facility] L2081 ATOPIC 03-14-2016 [facility] NEURODERMAT [facility] ITIS URGENT TREAT L500 ALLERGIC 03-14-2016 [facility] URTICARIA [facility] URGENT TREAT L0889 OT SPEC 02-24-2016 [facility] INFECTIONS URGENT THE SKIN & TREAT SUBQ TISSUE M6240 CONTRACTURE 01-11-2016 [facility] UNSPECIFIED HOLDINGS SITE R06810 SPONDYLOSIS 01-10-2016 LAURA HENDRICKSON, W/O , PSC MYELOPATH/R ADICULOPATH Y LUMB RGN M5126 OT 01-10-2016 LISANDRO SERNA MD, PSC RAL DISC DISPLACEMEN T LUMBAR RGN M797 FIBROMYALGI 01-10-2016 Ryann SERNA MD, PSC Q58358 PAIN IN 12-13-2015 [facility] RIGHT KNEE [facility] HOLDINGS U24971 PAIN IN 12-13-2015 [facility] LEFT KNEE [facility] HOLDINGS M7981 NONTRAUMATI 12-07-2015 [facility] OF SOFT INC TISSUE M5022 OTH CERV 10-21-2015 [place] DISC MEDICAL DISPLACEMEN IMAGING ASS T MID-CERVICA L REGION M5403 PANNICULITI 10-21-2015 [facility] S AFFCT MEM HOSP REGIONS INC NECK & BACK CT REGION M542 CERVICALGIA 10-21-2015 [facility] M533 SACROCOCCYG 08-31-2015 [place] EAL MEDICAL DISORDERS IMAGING ASS NEC R1032 LEFT LOWER 08-31-2015 [place] [facility] IM[facility] ASS R27331 MUSCLE 08-19-2015 [place] SPASM OF [facility] BACK URGENT TREAT T1490 INJURY 08-19-2015 [place] UNSPECIFIED [facility] URGENT TREAT M791 MYALGIA 07-26-2015 LAURA HENDRICKSON MD, PSC J028 ACUTE 07-12-2015 [place] PHARYNGITIS [facility] DUE TO URGENT OTHER SPEC TREAT ORGANISMS J101 FLU D/T OTH 07-12-2015 [place] ID FLU [facility] VIRUS OTH URGENT RESP TREAT MANIFESTATI ONS J208 ACUTE 06-21-2015 [place] BRONCHITIS [facility] DUE TO URGENT OTHER SPEC TREAT ORGANISMS R21 RASH AND 06-21-2015 [place] OTHER [facility] NONSPECIFIC URGENT SKIN TREAT ERUPTION M24533 ACUTE 04-08-2015 [place] SUPPURATIVE [facility] OM W/O URGENT RUPT EAR TREAT DRUM LT EAR H9202 OTALGIA 04-08-2015 [place] LEFT EAR [facility] URGENT TREAT J302 OTHER 04-08-2015 [facility] SEASONAL [facility] ALLERGIC URGENT RHINITIS TREAT K30 FUNCTIONAL 03-23-2015 [facility] DYSPEPSIA [place] K310 ACUTE 03-23-2015 [facility] DILATATION MOUNT OF STOMACH JOSÉ R140 ABDOMINAL 03-23-2015 [facility] [place] [facility] GASEOUS R935 ABN FIND DX 03-23-2015 [facility] IMAG OTH MOUNT ABD REGIONS [place] RETROPERITO NEUM 42484 SLOW 02-22-2015 [facility] TRANSIT [facility] CONSTIPATIO URGENT N TREAT 08548 DIAB W/O 02-17-2015 [place] COMP TYPE [facility] II/UNS NOT URGENT STATED TREAT [facility] 65161 GENERALIZED 02-17-2015 [place] ANXIETY [facility] DISORDER URGENT TREAT 5609 UNSPECIFIED 02-17-2015 [place] INTESTINAL [facility] URGENT OBSTRUCTION TREAT 4610 ACUTE 01-28-2015 [place] MAXILLARY [facility] SINUSITIS URGENT TREAT 07666 ASTHMA, 01-28-2015 [facility] UNSPECIFIED INC , UNSPECIFIED STATUS 496 CHRONIC 01-28-2015 [facility] INC OBSTRUCTION NEC 7291 UNSPECIFIED 01-28-2015 [place] MYALGIA [facility] AND URGENT MYOSITIS TREAT 7821 RASH AND 01-28-2015 [facility] OTHER [facility] NONSPECIFIC URGENT SKIN TREAT ERUPTION 5368 DYSPEPSIA&O 01-25-2015 [facility] [place] THER SPEC RADIOLOGY DISORDERS FUNCTION STOMACH 26306 DIVERTICULO 01-25-2015 [facility] JOSÉ 14270 EFFUSION OF 01-16-2015 [facility] ANKLE AND [facility] FOOT JOINT URGENT TREAT 10051 PAIN IN 01-16-2015 [facility] JOINT, [facility] SHOULDER URGENT REGION TREAT 00676 EXTRINSIC 12-31-2014 [facility] ASTHMA WITH COUNTY STATUS URGENT ASTHMATICUS TREAT 64863 ACUT 12-28-2014 [facility] SUPPRATV [facility] OTITIS URGENT MEDIA W/O TREAT SPONT RUP EARDRUM 462 ACUTE 12-28-2014 [facility] PHARYNGITIS [facility] URGENT TREAT 47800 ABDOMINAL 12-18-2014 [place] PA[facility], MEDICAL UNSPECIFIED IMAGING ASS SITE 4400 ATHEROSCLER 12-15-2014 [facility] OSIS OF [facility] AORTA URGENT TREAT 5589 OTH&UNSPEC 12-14-2014 [facility] NONINFECTIO [facility] GASTROENTER ITIS&COLITI S 83393 NAUSEA WITH 12-14-2014 [place] [facility] 48190 NAUSEA 12-14-2014 [place] [facility]ONE [facility] 73672 ABDOMINAL 12-14-2014 [place] PA[facility] OTHER MEDICAL SPECIFIED IMAGING ASS SITE 88933 DIAB W/O 11-26-2014 [facility] COMP TYPE I STATES [JUV] NOT MEDICAL STATED SUPPLY [facility] 80322 BENIGN 11-12-2014 [facility] PAROXYSMAL [facility] POSITIONAL URGENT VERTIGO TREAT 69219 ACUT PEPTC 11-12-2014 [facility] ULCR UNS [facility] SITE W/O URGENT HEMOR TREAT PERF/OBST 7881 DYSURIA 11-12-2014 [facility] URGENT TREAT 4660 ACUTE 10-24-2014 [facility] BRONCHITIS [facility] URGENT TREAT 95096 WHEEZING 10-24-2014 [facility] URGENT TREAT 07852 OTOGENIC 10-19-2014 [facility] PAIN [facility] URGENT TREAT 4011 ESSENTIAL 10-19-2014 [facility] HYPERTENSIO [facility] N, BENIGN URGENT TREAT 4619 ACUTE 10-19-2014 [facility] SINUSITIS, [facility] UNSPECIFIED URGENT TREAT 7862 COUGH 10-19-2014 [facility] URGENT TREAT 9953 ALLERGY 10-19-2014 [facility] UNSPECIFIED [facility] NOT URGENT ELSEWHERE TREAT CLASSIFIED 20133 OBSTRUCTIVE 09-23-2014 [facility] SLEEP APNEA 2724 OTHER AND 09-21-2014 [place] UNSPECIFIED COUNTY URGENT HYPERLIPIDE TREAT NELL 4770 ALLERGIC 09-21-2014 [place] RHINITIS [facility] DUE TO URGENT POLLEN TREAT 28801 ACUT PEPTC 09-21-2014 [place] ULCR UNS COUNTY SITE W/HEM URGENT W/O MENTION TREAT OBST 2851 ACUTE 09-14-2014 [place] POSTHEMORRH [facility] AGIC ANEMIA URGENT TREAT 18091 ACUTE 09-14-2014 [facility] GASTRITIS [facility] WITHOUT URGENT MENTION OF TREAT HEMORRHAGE 71032 LEUKOCYTOSI 09-05-2014 [facility] S PHYSICIANS UNSPECIFIED GROUP 64820 ATROPHIC 09-05-2014 [facility] GASTRITIS HIPOL[facility]O & WITHOUT DUBILIER MENTION OF HEMORRHAGE 22723 UNS 09-05-2014 [facility] GASTRITIS&G PHYSICIANS ASTRODUODIT GROUP IS W/O MENTION HEMORR 87200 DUODENITIS 09-05-2014 [facility] WITHOUT PHYSICIANS MENTION OF GROUP HEMORRHAGE 41406 OTHER 09-05-2014 [place] SPECIFIED MEDICAL DISORDER OF IMAGING ASS INTESTINES 5718 OTHER 09-05-2014 [place] CHRONIC MEDICAL NONALCOHOLI IMAGING ASS C LIVER DISEASE 16276 ABDOMINAL 09-05-2014 [place] PAIN, MEDICAL EPIGASTRIC IMAGING ASS 30082 HELICOBACTE 09-04-2014 [place] [address] [facility] INFECTION [facility]OSPITAL P 03387 UNSPECIFIED 09-04-2014 [facility] ESOPHAGITIS [facility]OSPITAL P 69157 ACUTE 09-04-[address] [place] [address] [facility] WITH HOSPITAL P HEMORRHAGE 5533 DIAPHRAGMAT 09-04-2014 [place] W/O [facility] P OBSTRUCTION /GANGREN 2449 UNSPECIFIED 09-02-2014 [facility] HYPOTHYROID [facility] CLI ISM 2722 MIXED 09-02-2014 [facility] HYPERLIPIDE PRIMARY NELL CARE CLI 59057 NONSPECIFIC 09-02-2014 [facility] ABNORMAL N EMERGENCY ELECTROCARD SERVI IOGRAM 69758 OBST 08-22-2014 [facility] CHRONIC N EMERGENCY BRONCHITIS PHYS W/ACUTE BRONCHITIS 53054 CHEST PAIN 08-22-2014 [facility] [place] UNSPECIFIED RADIOLOGY 4019 UNSPECIFIED 08-21-2014 [facility] ESSENTIAL PRIMARY HYPERTENSIO CARE CLI N 33548 CORONARY 08-05-2014 [facility] OSIS ABSENTEE-SHAWNEE CORONARY ARTERY 77955 CIRCADIAN 07-31-2014 [facility] LOZANO MD SLEEP CONSULTING DISORDER SERV UNSPECIFIED 22005 GEN 07-23-2014 [facility] OSTEOARTHRO PRIMARY SIS CARE CLI INVOLVING MULTIPLE SITES 2720 PURE 07-06-2014 [facility] MANN MD TEROLEMIA CONSULTING SERV 7295 PAIN IN 07-06-2014 [facility] HELMS SOFT TISSUES OF CONSULTING LIMB SRV 7823 EDEMA 07-06-2014 [facility] HELMS MD CONSULTING SRV 08012 SHORTNESS 07-06-2014 [place] OF BREATH [facility] 64740 PRECORDIAL 07-06-2014 [facility] PAIN [facility] 2723 HYPERCHYLOM 06-30-2014 [place] ICRONEMIA [facility] 7197 DIFFICULTY 06-30-2014 [facility] 29642 PAINFUL 05-26-2014 [facility] RESPIRATION PRIMARY CARE CLI 2689 UNSPECIFIED 12-22-2011 [facility], VITAMIN D [facility] [place] [facility] 31260 OBESITY, 12-22-2011 [facility], UNSPECIFIED [facility] [place] [facility] 48568 COR 12-22-2011 [facility] ATHEROSLERO UNSPEC TYPE VESSEL ABSENTEE-SHAWNEE/PIERCE T 5693 HEMORRHAGE 11-10-2011 [facility] OF RECTUM AND ANUS 5990 URINARY 11-10-2011 [facility] TRACT INFECTION SITE NOT SPECIFIED 7873 FLATULENCE 11-10-2011 [facility] ERUCTATION AND GAS PAIN V6709 FOLLOW-UP 08-25-2011 [facility] EX[facility] FOLLOWING ASSOCIAT OTHER SURGERY 98277 OTHER 08-24-2011 [facility] MALAISE AND FATIGUE 2469 UNSPECIFIED 08-19-2011 [facility] DISORDER OF THYROID 03722 DIAB 08-19-2011 [facility] W/NEURO MANIFESTS TYPE II/UNS NOT [facility] 6826 CELLULITIS 08-19-2011 [facility] G[facility] AND ABSCESS OF LEG EXCEPT FOOT 80217 AC LEANNE 08-16-2011 [facility] JIL EMBO & THROMB UNSPEC DEEP VES LOWER EXT 08622 OTHER 08-16-2011 [facility] DISEASES OF RADIOLOGY LUNG NOT ASSOCIAT ELSEWHERE CLASSIFIED 7231 CERVICALGIA 08-16-2011 [facility] [place] [facility] 63118 UNSPECIFIED 08-11-2011 [facility] ARTHROPATHY SITE UNSPECIFIED 7802 SYNCOPE AND 08-01-2011 [place] COLLAPSE [facility] 7804 DIZZINESS 08-01-2011 [facility] 7820 DISTURBANCE 08-01-2011 [facility] GUERRERO OF SKIN SENSATION 15421 OCCLUSION&S 07-19-2011 [facility] TENOS CAROTID ART W/O MENTION INFARCT 86397 OTHER 07-07-2011 [facility] DISEASES OF RADIOLOGY SPLEEN ASSOCIAT 5531 UMB HERNIA 07-07-2011 [facility] WITHOUT RADIOLOGY MENTION ASSOCIAT OBSTRUCTION /GANGRENE E8889 UNSPECIFIED 07-06-2011 [facility] 38003 OBSTRUCTIVE 06-26-2011 [facility] CHRONIC BRONCHITIS WITH EXACERBATIO N 99300 OSTEOARTHRO 06-26-2011 [facility], SIS UNSPEC ANTENNA SPECIALIST WHETHER [place] GEN/LOC HOS LOWER LEG 7202 SACROILIITI 06-26-2011 [facility], S NOT ANTENNA SPECIALIST ELSEWHERE [place] CLASSIFIED HOS V571 OTHER 06-26-2011 [facility], PHYSICAL ANTENNA SPECIALIST THERAPY [facility] HOS 1320 PEDICULUS 05-31-2011 [place] 50018 DEGEN 05-15-2011 [facility] LUMBAR/LUMB RADIOLOGY OSACRAL ASSOCIAT INTERVERTEB RAL DISC 7242 LUMBAGO 05-15-2011 [facility]PITAL 92110 OSTEOARTHRO 05-12-2011 TAMJEANIE KENDALL S INVLV MX SITES BUT NOT SPEC GEN V5883 ENCOUNTER 05-12-2011 BELÉN KENDALL FOR THERAPEUTIC DRUG MONITORING 50835 ANAL OR 03-28-2011 [place] RECTAL PAIN [facility] V5869 LONG-TERM 03-28-2011 [facility] (CURRENT) HOSPITAL USE OF OTHER MEDICATIONS 2113 BENIGN 03-15-2011 [facility] NEOPLASM OF HOSPITAL COLON 4556 UNSPEC 03-15-2011 [facility] HEMORRHOIDS HOSPITAL WITHOUT MENTION COMPLICATIO N 5690 ANAL AND 03-15-2011 [facility] [place] [facility] POLYP 5781 BLOOD IN 02-21-2011 [facility] STOOL HOSP 19263 OTHER 02-21-2011 [facility] DYSPNEA AND HOSPITAL RESPIRATORY ABNORMALITI ES 7851 PALPITATION 01-19-2011 GUERRERO Walsh MD CONSULTING SRV 44704 SWELLING OF 01-18-2011 [facility] [facility]OC[facility]AT 57627 HYPERSOMNIA 01-13-2011 [facility] HELMS MD UNSPECIFIED CONSULTING SRV 33146 OTHER CHEST 01-13-2011 [facility] SIMPSON MD CONSULTING [...] 50 11 11 FA JA 0- 0 OK NA [address] SK UG US AV 00 10 10 0 7. 7 SO 38 GA Ac EL 08 -2 -2 00 PE 79 NT ti OX 51 5- 5- 0 RS 81 LE ve 73 20 20 Y 40 30 11 11 FA JA 0 1 OK NA MG LY R TA DR BL UG ET 59 10 10 5 8. 15 SO 38 GA Ac 31 -2 -2 50 PE 79 NT ti 00 5- 5- 0 RS 82 LE ve 57 20 20 Y 92 11 11 FA JA 0 OK NA LY R DR UG 00 10 10 3 24 2 SO 38 GA Ac 12 -2 -2 0. PE 79 NT ti 10 5- 5- 00 RS 83 LE ve 74 20 20 0 Y 40 11 11 FA JA 4 OK NA LY R DR UG PI 00 10 10 3 30 30 SO 38 GA Ac RO 09 -2 -2 .0 PE 80 NT ti XI 30 5- 5- 00 RS 21 LE ve CA 75 20 20 Y M 60 11 11 FA JA 10 1 OK NA LY R MG DR CA UG PS UL E OX 00 10 10 0 10 2 SO 38 GA Ac YC 60 -2 -2 .0 PE 80 NT ti OD 34 5- 5- 00 RS 30 LE ve ON 99 20 20 Y E- 82 11 11 FA JA AC 8 OK NA ET LY R AM IN DR OP UG HE N 5- 32 5 AL 59 10 10 0 60 30 SO 38 AH Ac FL 76 -2 -2 .0 PE 78 ME ti AZ 23 4- 4- 00 RS 77 D ve OL 72 20 20 AD AM 10 11 11 FA NA 1 3 OK N LY MG DR TA UG BL ET DI 00 10 10 3 60 30 SO 38 AH Ac LT 37 -2 -2 .0 PE 78 ME ti IA 80 4- 4- 00 RS 78 D ve ZE 52 20 20 AD M 50 11 11 FA NA 12 1 OK N [address] TA UG BL ET NE 61 10 10 0 10 7 SO 38 AH Ac OM 31 -1 -1 .0 PE 68 ME ti YC 40 2- 2- 00 RS 11 D ve IN 64 20 20 AD -P 61 11 11 FA NA OL 0 OK N YM LY YX IN DR -H UG C EA R SO LN OX 00 10 10 0 20 3 SO 38 KE Ac YC 60 -1 -1 .0 PE 68 AR ti OD 34 2- 2- 00 RS 12 NS ve ON 99 20 20 E- 82 11 11 FA LA AC 8 OK RI ET LY EN AM D IN OP UG HE N 5- 32 5 OS 65 09 09 0 32 1 SO 38 KE Ac MO 64 -2 -2 .0 PE 50 AR ti FL 90 3- 3- 00 RS 06 NS ve EP 70 20 20 14 11 11 FA LA TA 1 OK RI BL LY EN ET D DR HORNE 00 09 09 0 40 5 SO 38 GA Ac 59 -2 -2 .0 PE 50 NT ti 10 3- 3- 00 RS 12 LE ve 34 20 20 Y 90 11 11 FA JA 5 OK NA LY R DR HORNE AD 00 09 09 2 60 30 SO 38 GA Ac VA 17 -2 -2 .0 PE 46 NT ti IR 30 0- 0- 00 RS 18 LE ve 69 20 20 Y 10 50 11 11 FA JA 0- 0 OK NA 50 LY R DI SK UG US AL 59 09 09 0 60 30 SO 38 GA Ac FL 76 -1 -1 .0 PE 44 NT ti AZ 23 9- 9- 00 RS 74 LE ve OL 72 20 20 Y AM 10 11 11 FA JA 1 3 OK NA LY R MG TA UG BL ET 00 09 09 4 30 30 SO 38 GA Ac 14 -1 -1 .0 PE 44 NT ti 31 9- 9- 00 RS 76 LE ve 25 20 20 Y 61 11 11 FA JA 0 OK NA LY R DR HORNE PI 00 [...] 25 10 MG 11 40 TA B FL 64 09 09 2 30 7 SO 38 GA Ac OC 98 -0 -0 .0 PE 33 NT ti TO 00 6- 6- 00 RS 95 LE ve ZO 30 20 20 Y NE 13 11 11 FA JA -H 0 OK NA C LY R 2. 5% DR COLEEN CR EA M 59 09 09 2 8. 15 SO 38 GA Ac 31 -0 -0 50 PE 33 NT ti 00 6- 6- 0 RS 96 LE ve 57 20 20 Y 92 11 11 FA JA 0 OK NA LY R DR UG FL 00 09 09 2 16 30 SO 38 GA Ac UT 05 -0 -0 .0 PE 33 NT ti IC 43 6- 6- 00 RS 98 LE ve 27 20 20 Y ON 09 11 11 FA JA E 9 OK NA FL LY R OP DR 50 UG MC G SP RA Y AL 59 09 09 0 60 30 SO 38 GA Ac FL 76 -0 -0 .0 PE 33 NT ti AZ 23 6- 6- 00 RS 99 LE ve OL 72 20 20 Y AM 00 11 11 FA JA 3 OK NA 0. LY R [address] HORNE TA BL ET CE 68 09 09 0 40 10 SO 38 GA Ac PH 18 -0 -0 .0 PE 34 NT ti AL 00 6- 6- 00 RS 00 LE ve EX 12 20 20 Y IN 20 11 11 FA JA 2 OK NA 50 LY R [address] HORNE CA PS UL E 00 09 09 0 40 10 SO 38 GA Ac 07 -0 -0 .0 PE 34 NT ti 46 6- 6- 00 RS 01 LE ve 30 20 20 Y 41 11 11 FA JA 3 OK NA LY R DR UG 00 09 09 0 15 5 SO 38 GA Ac 14 -0 -0 .0 PE 34 NT ti 31 6- 6- 00 RS 02 LE ve 47 20 20 Y 70 11 11 FA JA 1 OK NA LY R DR UG DI 00 08 08 1 60 30 SO 38 GA Ac LT 37 -2 -2 .0 PE 25 NT ti IA 80 6- 6- 00 RS 68 LE ve ZE 52 20 20 Y M 50 11 11 FA JA 12 1 OK NA [address] CARABALLO UG BL ET LE 00 08 08 6 30 30 SO 38 CO Ac VO 52 -1 -1 .0 PE 16 MB ti TH 71 8- 8- 00 RS 96 S ve YR 34 20 20 PA OX 11 11 11 FA ME IN 0 OK LA E LY A 25 DR JEAN-BAPTISTE UG G TA BL ET AL 00 08 08 0 60 30 WA 44 GA Ac FL 37 -0 -0 .0 L- 95 NT [...] 41 08 08 FA la HE 0 OK bl N- LY e CO D DR #3 UG TA BL ET AC 00 02 03 00 20 5 SO 27 No Ac ET 40 -1 -2 .0 PE 61 t ti AM 60 4- 6- 00 RS 36 Av ve IN 48 20 20 ai OP 41 08 08 FA la HE 0 OK bl N- LY e CO D DR #3 UG TA BL ET 60 02 03 00 24 12 SO 27 No Ac 25 -1 -2 0. PE 61 t ti 80 4- 6- 00 RS 34 Av ve 23 20 20 0 ai 91 08 08 FA la 6 OK bl LY e DR UG CI 55 02 03 00 20 10 SO 27 No Ac FL 11 -1 -2 .0 PE 61 t ti OF 10 4- 6- 00 RS 33 Av ve LO 12 20 20 ai XA 70 08 08 FA la CI 1 OK bl N LY e HC L DR 50 UG 0 MG TA B Procedures Procedure DOS Code Location Performer Comment O2 CONC 1 E1390 [facility] 7 HOME HOME 85%/>02 MEDICAL [...] NON-CP U DOSE PER MG INJECTION [id number] [facility] [address] [place] [address] CITRATE 0.1 MG INJECTION J1644 [facility]PAR[facility] [address] [place] [address] SODIUM PER 1000 UNITS INJECTION J2001 [address] LIDOCAINE HCL INTRAVENO US INFUS 10 MG BLOOD [address] HEMATOCRI T BLOOD [address] [facility]IC [address] PANEL CALCIUM IONIZED GUIDE C[address] CATH PLMT [address] [facility] L HRT & [address] [place] [address] ARTS W/NJX & ANGIO IMG S&I CATHETER [id number] [place] [address] [facility] 7 MEDICAL NAL IMAGING ASS PHRM Q0513 MED 4 MED 4 DISPENSIN 7 [facility] G FEE INHALATIO N RX; PER 30 DAYS ADMN SET [id number] MED 4 MED 4 SM VOL 7 [facility] NONFILTR PNEUMAT NEBULIZR DISPBL RADIOLOGI 53125 [facility] C EXAM 7 MEDICAL CHEST 2 [...] G0145 [facility], CY[facility] 7 [employer] CERV/VAG SCR AUTO&MNL RSCR PHYS URNLS DIP 93013 [facility] DRU 7 PHYSICIAN STICK/TAB S GROUP LET RGNT NON-AUTO W/O MICRSCP ANNUAL G0439 [facility] DRU WELLNESS 7 PHYSICIAN VST; S GROUP PERSONALI ZED PPS SUBSQT VST COLLECTIO 11571 [facility] N VENOUS 7 [facility] VENIPUNCT URE CV STRS 83834 [facility] TST 7 [facility] XERS&/OR HOSPITAL HOSPITAL RX CONT ECG TRCG ONLY CV STRS 42951 [facility] HELMS HELMS TST 7 MD XERS&/OR CONSULTIN RX CONT G SRV ECG I&R ONLY NONINVASI 24575 [facility] VE [address] [place] [address] EAR/PULSE [facility] HOSPITAL OXIMETRY OVERNIGHT MONITOR NATRIURET 96096 [facility] IC [address] [place] [address] BLOOD 99404 [facility] COUNT [address] [place] [address] AUTO&AUTO DIFRNTL WBC TECHNETIU A9500 [facility] M TC-99M [address] [place] [address] DX PER STUDY DOSE MYOCARDIA 53204 GU[facility] HELMS HELMS L SPECT 7 MULTIPLE CONSULTIN STUDIES G SRV COMPREHEN 31905 [facility] SIVE [address] [place] [address] HOSPITAL PANEL NONINVASI 89259 [facility] HELMS HELMS VE 7 MD EAR/PULSE CONSULTIN OXIMETRY G SRV OVERNIGHT MONITOR MRI 81989 [facility] SPINAL 7 CANAL ORTHOPAED LUMBAR ICS PSC W/O CONTRAST MATERIAL DUP-SCAN 19758 GU[facility] HELMS WAESPE XTR VEINS 7 MD COMPLETE CONSULTIN G SRV BILATERAL STUDY ECG 68076 GU[facility] HELMS HELMS ROUTINE 7 MD ECG [...] DME U DOSE 1 MG FEDERALLY G0467 [place] [address] [facility] IN CENTER VISIT ESTAB PT FEDERALLY G0467 [place] [address] [facility] IN CENTER VISIT ESTAB PT URNLS DIP 06032 [place] [address] HEALTH STICK/TAB SOLUTIONS LET RGNT IN AUTO [...] NON-CP U DOSE PER MG FEDERALLY G0467 [place] [address] [facility] CENTER VISIT ESTAB PT PHRM Q0513 [...] DME U DOSE 1 MG FEDERALLY G0467 [place] [address] [facility] IN CENTER VISIT ESTAB PT CONTINUOU E0601 BENJIE WALDROP S 7 HOME HOME POSITIVE MEDICAL MEDICAL AIRWAY EQUIPME EQUIPME PRESSURE DEVICE HUMDIFIR E0562 BENJIE WALDROP HEATED 7 HOME HOME USED MEDICAL MEDICAL W/POS EQUIPME EQUIPME ARWAY PRESSURE DEVICE FEDERALLY G0467 [place] [address] [facility] IN CENTER VISIT ESTAB PT OPHTH [address] [place] [address] VISION VISION XM&EVAL CENTER CENTER COMPRE NEW PT 1/> VST DETERMINA 42315 FABRICE AGIURRE TION 7 VISION REFRACTIV CENTER E STATE [...] DISPBL USED W/POS ARWAY PRESS DEVICE HEMOGLOBI 04383 LAB DECLAN LAB DECLAN N 7 HAI HAI GLYCOSYLA HOLDINGS HOLDINGS SAE A1C FEDERALLY G0467 [place] [address] [facility] VISIT ESTAB PT BLOOD 31456 LAB DECLAN LAB DECLAN COUNT 7 HAI HAI COMPLETE HOLDINGS HOLDINGS AUTO&AUTO DIFRNTL WBC COMPREHEN 28451 LAB DECLAN LAB DECLAN SIVE 7 HAI HAI METABOLIC HOLDINGS HOLDINGS PANEL LIPID 24390 LAB DECLAN LAB DECLAN PANEL 7 [place] [address] LAB DECLAN LAB DECLAN THYROID 7 HAI HAI STIMULATI HOLDINGS HOLDINGS NG HORMONE TSH COLLECTIO 94605 [facility] N VENOUS 7 E-Diversify Yourself BLOOD SOLUTIONS VENIPUNCT IN URE FEDERALLY G0467 [place] [address] [facility] VISIT ESTAB PT CT THORAX 91870 [facility] 7 MEDICAL W/CONTRAS IMAGING T ASS MATERIAL RADIOLOGI 05718 [place] [facility] C EXAM 7 MEDICAL CHEST 2 IMAGING VIEWS ASS FRONTAL&L ATERAL ECG 80761 EMMY NAYANA ROUTINE 7 [facility] W/LEAST P 12 LDS I&R ONLY RADIOLOGI 97332 [facility] C EXAM 7 MEDICAL CHEST 2 IMAGING VIEWS ASS FRONTAL&L ATERAL RADIOLOGI 99296 [place] SH[place] C EXAM 7 MEDICAL CHEST 2 IMAGING VIEWS ASS FRONTAL&[place] [address] [facility] HEAD/BRAI 7 MEDICAL N W/O IMAGING CONTRAST [...] INHAL NON-CP U DOSE PER MG NEEDLE 14139 EMMY BOOTH EMG EA 7 [facility] EXTREMTY INC INC W/PARASPI NL AREA COMPLETE NERVE 32526 EMMY BOOTH CONDUCTIO 7 [facility] MEM HOSP N STUDIES INC INC 3-4 STUDIES FEDERALLY G0467 [place] [address] [facility] VISIT ESTAB PT TECHNETIU A9500 [facility] TC-99M 7 [facility] DX PER STUDY DOSE MYOCARDIA 13222 GUERRERO SCOOTER CHURCH L SPECT 7 MULTIPLE CONSULTIN STUDIES G SRV NONINVASI 17235 [facility] VE [address] [place] [address] HOSPITAL OXIMETRY OVERNIGHT MONITOR CV STRS 11675 GU[facility] CHURCH TST 7 XERS&/OR CONSULTIN RX CONT G SRV ECG I&R ONLY CV STRS 45623 [facility] TST 7 [facility] HOSPITAL RX CONT ECG TRCG ONLY ECHO 71022 GUERRERO HELMS HELMS TTHRC R-T 7 MD 2D CONSULTIN W/WOM-MOD G SRV E COMPL SPEC&COLR D ECG 77716 GUERRERO HELMS WAESPE ROUTINE 7 MD ECG [...] [place] [address] LAB DECLAN LAB DECLAN MAGNESIUM 6 HAI HAI [facility] POTASSIUM 58772 LAB DECLAN LAB DECLAN SERUM 6 HAI [...] BENJIE WALDROP INTRFCE 6 HOME HOME [facility] MEDICAL MEDICAL PRSS EQUIPME EQUIPME DEVC W/WO HEAD STRAP COMPREHEN 10002 LAB DECLAN LAB DECLAN SIVE 6 HAI HAI METABOLIC [facility] PANEL RHEUMATOI 85738 LAB DECLAN LAB DECLAN D FACTOR 6 HAI HAI QUANTITAT HOLDINGS HOLDINGS SATHISH EXTRACTAB 44759 LAB DECLAN LAB DECLAN LE 6 HAI [...] INHAL NON-CP U DOSE PER MG DUP-SCAN 44420 [place] ARGUET[place] ALL XTR VEINS 6 MEDICAL IMAGING [...] BOX 6 STATES STATES OF [facility] MEDICAL MEDICAL SUPPLY SUPPLY NEBULIZER E0570 MED 4 MED 4 WITH 6 HOME INC HOME INC COMPRESSO R MRI 32587 SUZY ARGUETA ALL SPINAL 6 MEDICAL CANAL IMAGING LUMBAR ASS W/O CONTRAST MATERIAL 3D 05468 SUZY ARGUET[place] ALL RENDERING 6 MEDICAL W/INTERP IMAGING & ASS POSTPROCE SS SUPERVISI ON MRI 16191 SUZY ARGUET[place] ALL SPINAL 6 MEDICAL CANAL [...] HOME INC HOME INC COMPRESSO R CREATININ 31796 EMMY BOOTH E BLOOD 6 [facility] INC INC LOCM Q9967 EMMY BOOTH [phone] 6 [facility] MG/ML INC [place] [address] [place] [facility] ABDOM[facility] & 6 MEDICAL KURT PELVIS IMAGING W/CONTRAS ASS T MATERIAL COLLECTIO 47648 EMMY BOOTH N VENOUS 6 [facility]OS[facility] BLOOD INC INC VENIPUNCT URE RADEX 88212 EMMY BOOTH SACRUM & 6 [facility]OS[facility] COCCYX INC INC MINIMUM 2 [place] [address] EMMY BOOTH UREA 6 MEM HOS[facility] MEM HOSP NITROGEN INC INC QUANTITAT SATHISH LANCETS A4259 [facility] PER BOX 6 [place] [address] MEDICAL MEDICAL SUPPLY SUPPLY SPRING-PO A4258 [facility] WERED [address] [place] [address] DEVICE MEDICAL MEDICAL FOR SUPPLY SUPPLY LANCET EACH REPL JACKELIN A4233 [facility] ALKALINE [address] [place] [address] NOT J MEDICAL MEDICAL CELL AMINATA SUPPLY SUPPLY BG MON OWND PT BLD GLU A4253 [facility] TEST/REAG [address] [place] [address] T STRIPS MEDICAL MEDICAL HOME BLD SUPPLY SUPPLY GLU MON-50 NORMAL A4256 [facility] LOW AND [address] [place] [address] HIGH MEDICAL MEDICAL CALIBRATO SUPPLY SUPPLY R [...] INC HOME INC COMPRESSO R TECHNETIU A9541 [facility] TC-99M 5 [facility] COLLOID DX UP TO 20 MCI GASTRIC 65607 [facility] [place] CHRISTO MAT EMPTYING 5 RADIOLOGY [...] INHALATIO N RX; PER 30 DAYS CREATININ 03668 [facility] E BLOOD 5 [facility] JOSÉ JOSÉ INJECTION A9579 [facility] 5 [facility] GADOLINIU [place] JOSÉ M BASED MR CONTRAST NOS ML MRI 58255 [facility] [place] CHRISTO MAT ABDOMEN 5 RADIOLOGY W/O & W/CONTRAS T MATERIAL COLLECTIO 01094 [facility] N VENOUS 5 [facility] BLOOD JOSÉ JOSÉ VENIPUNCT URE COLLECTIO 61773 [facility] N VENOUS 5 [facility] BLOOD JOSÉ JOSÉ VENIPUNCT URE C-REACTIV 55386 [facility] E PROTEIN 5 [facility] JOSÉ JOSÉ SEDIMENTA 47824 [facility] TION RATE 5 [facility] RBC JOSÉ JOSÉ AUTOMATED FILTER [...] THRU DME U DOSE 1 MG RADEX 31534 [facility] ALL SMALL 5 MEDICAL INTESTINE IMAGING ASS W/MULTIPL E SERIAL IMAGES INJECTION J2405 EMMY BOOTH 5 [facility] ONDANSETR INC INC ON HCL [place] [address] [place] [address] EMMY BOOTH ABDOMEN & 5 [facility] PELVIS INC INC W/[place] [address] EMMY BOOTH LIPASE 5 [facility] [place] [address] EMMY BOOTH AMYLASE 5 [facility] INC INC URNLS DIP 20972 EMMY BOOTH 5 [facility] STICK/TAB INC INC LET REAGENT AUTO MICROSCOP Y BLOOD 70936 EMMY BOOTH COUNT 5 [facility] COMPLETE INC INC AUTO&AUTO DIFRNTL WBC COMPREHEN 23878 EMMY BOOTH SIVE 5 [facility] METABOLIC INC INC PANEL THERAPEUT 25646 EMMY BOOTH IC 5 [facility] INJECTION INC INC IV PUSH EACH NEW DRUG THER 34229 EMMY BOOTH PROPH/DX 5 [facility] NJX IV INC INC PUSH SINGLE/1S T SBST/DRUG REPL JACKELIN A4233 UNITED UNITED ALKALINE 5 STATES STATES NOT J MEDICAL MEDICAL CELL AMINATA SUPPLY SUPPLY BG MON OWND PT SPRING-PO A4258 UNITED UNITED WERED 5 STATES STATES DEVICE MEDICAL MEDICAL FOR SUPPLY SUPPLY LANCET EACH BLOOD 70684 LAB DECLAN LAB DECLAN COUNT 5 HAI HAI COMPLETE HOLDINGS HOLDINGS AUTOMATED BLOOD 08608 L[facility] ESCOBEDO OCCULT 5 COUNTY NAN PEROXIDAS URGENT E ACTV TREAT QUAL FECES 1 DETER COLLECTIO 51166 [facility] ESCOBEDO N VENOUS 5 [facility] BLOOD URGENT VENIPUNCT TREAT URE NORMAL A4256 [...] INC USED W/POS ARWAY PRESSURE DEVICE SPECIAL 49051 [facility] [place] STAIN 5 HIPOLITO & EDGAR GROUP 1 DUBILIER MICROORGA NISMS I&[place] [address] [facility] ABDOMEN & 5 MEDICAL OMAR PELVIS IMAGING W/O ASS CONTRAST MATERIAL ANES 01942 [facility] UPPER GI 5 ANESTH NIALL ENDOSCOPY OF THE PROXIMAL BLUE TO DUODENUM INITIAL [address] [facility] HOSPITAL 5 PHYSICIAN JIL CARE/DAY S GROUP 30 MINUT[address] EGD [address] [facility] TRANSORAL 5 PHYSICIAN JIL BIOPSY S GROUP [place]INGLE/[place] [address] [facility] [place] SURG 5 HIPOLITO & EDGAR PATHOLOGY DUBILIER GROSS&CECY ROSCOPIC EXAM RADEX 17720 [facility] ABDOMEN 5 MEDICAL OMAR COMPL IMAGING W/DCBTS&/ ASS ERC VIEWS RADEX ABD 60799 [facility] [place] JAYLEEN CHR COMPL 5 RADIOLOGY AQT ABD W/S/E/D VIEWS 1 [facility] 99892 MEANS BUTROS RETROPERI 5 ADULT JONNY TONEAL PRIMARY REAL TIME CARE CLI W/[place] [address] [facility] [place] JARRETT ABDOMEN & 5 RADIOLOGY RAY PELVIS W/CONTRAS T MATERIAL ECG 14936 [facility] ROUTINE 5 SHANNON AP ECG EMERGENCY W/LEAST PHYS 12 LDS I&R ONLY BLD GLU A4253 [facility] TEST/REAG 5 STATES STATES T STRIPS MEDICAL MEDICAL HOME BLD SUPPLY SUPPLY GLU MON-50 NORMAL A4256 [facility] LOW AND 5 STATES STATES HIGH MEDICAL MEDICAL CALIBRATO SUPPLY SUPPLY R SOLUTION/ CHIPS LANCETS A4259 [facility] PER BOX 5 [place] [address] MEDICAL MEDICAL SUPPLY SUPPLY RADIOLOGI 59877 [facility] [place] STEPHANY C EXAM 5 RADIOLOGY CAR CHEST 2 VIEWS FRONTAL&L ATERAL INJECTION J2001 [address] [place] HCL INTRAVENO US INFUS 10 MG BLOOD [address] HEMATOCRI T INJECTION J3[address] CITRATE 0.1 MG INJECTION J2250 [address] [place] HCL PER 1 MG BASIC [address] PANEL CALCIUM IONIZED BLOOD [address] PLATELET AUTOMATED GUIDE C[address] CATH PLMT 07805 [facility] L HRT & [address] [place] [address] ARTS W/NJX & ANGIO IMG S&I CLOSURE C17[address] VASCULAR INTRDUCR/ C1894 [address] NOT GUID INTRACARD EP NON-LASR NASL A7034 BENJIE WALDROP INTRFCE 5 HOME HOME POS [facility] MEDICAL PRSS EQUIPME EQUIPME DEVC W/WO HEAD STRAP BASIC [address] CALCIUM TOTAL COLLECTIO 36268 [facility] N VENOUS [address] [place] [address] VENIPUNCT URE NORMAL A4256 [facility] AR[facility] LOW AND 5 MEDICAL MEDICAL HIGH CALIBRATO R SOLUTION/ CHIPS BLD GLU A4253 [facility] TEST/REAG 5 MEDICAL MEDICAL T STRIPS HOME BLD GLU MON-50 LANCETS A4259 [facility] AR[facility]IV[facility] PER BOX 5 MEDICAL MEDICAL OF 100 COMPREHEN 68933 [facility] SIVE 5 [facility] PANEL DUP-SCAN 62258 GUERRERO HELMS HELMS GUERRERO XTR VEINS 5 COMPLETE CONSULTIN G SRV BILATERAL STUDY BLOOD 57984 [facility] COUNT 5 [facility] AUTO&AUTO DIFRNTL WBC NATRIURET 68193 [facility] IC [address] [place] [address] HOSPITAL COLLECTIO 59049 [facility] N VENOUS 5 [facility] VENIPUNCT URE RADIOLOGI 36442 [facility] [place] SCALF EDGAR C EXAM 5 RADIOLOGY CHEST 2 VIEWS FRONTAL&L ATERAL ECG 87413 GUERRERO SCOOTER FOWLER ROUTINE 5 MD CAMPBELL ECG CONSULTIN W/LEAST G SERV 12 LDS W/I&R CV STRS 27211 [facility] TST 5 [facility] XERS&/OR HOSPITAL HOSPITAL RX CONT ECG TRCG ONLY COLLECTIO 67778 [facility] N VENOUS 5 [facility] VENIPUNCT URE CV STRS 77074 GUERRERO HELMS HELMS GUERRERO TST 5 XERS&/OR CONSULTIN RX CONT G SRV ECG I&R ONLY NONINVASI 62663 [facility] VE 5 [facility] EAR/PULSE HOSPITAL HOSPITAL OXIMETRY OVERNIGHT MONITOR HEMOGLOBI 90309 [facility] N [address] [place] [address] SAE A1C MYOCARDIA 42904 GUERRERO HELMS HELMS GUERREOR L SPECT 5 MULTIPLE CONSULTIN STUDIES G SRV TECHNETIU A9500 [facility] YEUNG M TC-99M [address] [place] [address] DX PER STUDY DOSE HEADGEAR A7035 US [...] OBTD CARE CLI UPD/REV PT MEDS ECG 73549 GUERRERO HELMS HELMS GUERRERO ROUTINE 5 MD [...] E AIRWAY EQUIPME EQUIPME PRESSURE DEVICE LIPID 99901 [employer], PANEL 2 ANTENNA SPECIALIST ANTENNA SPECIALIST [facility] HOS COMPREHEN 38098 [employer], SIVE 2 ANTENNA SPECIALIST ANTENNA SPECIALIST METABOLIC LEXI ELLIOTT PANEL CO HOS CO HOS BLOOD 63796 [employer], COUNT 2 ANTENNA SPECIALIST ANTENNA SPECIALIST COMPLETE LEXI ELLIOTT AUTO&AUTO CO HOS CO HOS DIFRNTL WBC 25 32362 [employer], HYDROXY 2 ANTENNA SPECIALIST ANTENNA SPECIALIST INCLUDES L[facility]I E[place]OTT FRACTIONS [place] [address] [employer], FREE 2 ANTENNA SPECIALIST ANTENNA SPECIALIST THYROXINE [place] [address] [employer], THYROID 2 ANTENNA SPECIALIST ANTENNA SPECIALIST STIMULATI LEXI ELLIOTT NG CO HOS CO HOS HORMONE TSH COLLECTIO 02779 [employer] [facility] [facility] N VENOUS 2 BLOOD VENIPUNCT URE ECG 26715 HELMS GUERRERO HELMS GUERRERO ROUTINE 2 ECG W/LEAST 12 LDS W/I&R HEPATIC 19312 [facility] [employer], [facility] INC, FUNCTION 2 ANTENNA SPECIALIST ANTENNA SPECIALIST PANEL LEXI L[facility]I CO HOS CO HOS LIPID 57384 [facility], [facility], PANEL 2 ANTENNA SPECIALIST ANTENNA SPECIALIST L[facility]I [facility] CO HOS CO HOS COMPREHEN 16197 [facility], [facility], SIVE 2 ANTENNA SPECIALIST ANTENNA SPECIALIST METABOLIC LEXI LEXI PANEL CO HOS CO HOS URNLS DIP 09910 [employer] [facility] 2 STICK/TAB LET RGNT NON-AUTO W/O MICRSCP BLOOD 88875 [facility] [employer], [facility] INC, COUNT 2 ANTENNA SPECIALIST ANTENNA SPECIALIST COMPLETE LEXI LEXI AUTO&AUTO CO HOS CO HOS DIFRNTL WBC BLOOD 16702 [employer] OCCULT 2 PEROXIDAS E ACTV QUAL FECES 1 DETER COLLECTIO 13538 [employer] WORKS GEORGES N VENOUS 2 BLOOD VENIPUNCT URE CONTINUOU E0601 BENJIE WALDROP S 2 HOME HOME POSITIVE MEDICAL MEDICAL AIRWAY EQUIPME EQUIPME PRESSURE DEVICE CONTINUOU E0601 BENJIE WALDROP S 2 HOME HOME POSITIVE MEDICAL MEDICAL AIRWAY EQUIPME EQUIPME PRESSURE DEVICE DUP-SCAN 33917 [facility] ARTL JULISSA 2 EIDER CASIE ABDL/PEL/ RADIOLOGY SCROT&/RP ASSOCIAT R ORGN LMT RADIOLOGI 80093 [facility] C EXAM 2 EIDER CASIE CHEST 2 RADIOLOGY VIEWS ASSOCIAT FRONTAL&L ATERAL OBSERVATI 57149 [facility] WORKS GEORGES ON/INPATI 2 ENT HOSPITAL CARE 50 MINUTES HOSPITAL 43553 [facility] DISCHARGE 2 GIAN GIAN DAY MANAGEMEN T > 30 MIN CONTINUOU E0601 BENJIE WALDROP S 2 HOME HOME POSITIVE MEDICAL MEDICAL AIRWAY EQUIPME EQUIPME PRESSURE DEVICE SBSQ 44737 [facility] 2 GIAN GIAN CARE/DAY 35 MINUTES INITIAL 12266 [facility] 2 GIAN GIAN CARE/DAY 70 MINUTES DUP-SCAN 63011 HELMS GUERRERO HELMS GUERRERO XTR VEINS 2 UNILATERA L/LIMITED STUDY RADIOLOGI 50028 [facility], C EXAM 2 ANTENNA SPECIALIST ANTENNA SPECIALIST CHEST 2 LEXI LEXI VIEWS CO HOS CO HOS FRONTAL&L ATERAL ECG 83087 LINDA MCKEON ROUTINE 2 JIL JIL ECG W/LEAST 12 LDS I&R ONLY RADIOLOGI 22239 [facility], C 2 ANTENNA SPECIALIST ANTENNA SPECIALIST EXAMINATI LEXI LEXI ON FEMUR CO HOS CO HOS 2 VIEWS C-REACTIV 43840 [facility], E PROTEIN 2 ANTENNA SPECIALIST ANTENNA SPECIALIST [facility] CO [facility]OS CO HOS COMPREHEN 09462 [facility], SIVE 2 ANTENNA SPECIALIST ANTENNA SPECIALIST METABOLIC LEXI LEXI PANEL CO HOS CO HOS CREATINE 73022 [facility], KINASE MB 2 ANTENNA SPECIALIST ANTENNA SPECIALIST FRACTION LEXI LEXI ONLY CO HOS CO HOS RADEX HIP 12349 [facility], 2 ANTENNA SPECIALIST ANTENNA SPECIALIST UNILATERA LEXI LEXI L CO HOS CO HOS COMPLETE MINIMUM 2 VIEWS SEDIMENTA 07948 [facility], TION RATE 2 ANTENNA SPECIALIST ANTENNA SPECIALIST RBC LEXI LEXI NON-AUTOM CO HOS CO HOS ATED CREATINE 57852 [facility], KINASE 2 ANTENNA SPECIALIST ANTENNA SPECIALIST TOTAL L[facility]I [facility] CO HOS CO HOS BLOOD 22994 [facility], COUNT 2 ANTENNA SPECIALIST ANTENNA SPECIALIST COMPLETE LEXI LEXI AUTO&AUTO CO HOS CO HOS DIFRNTL WBC MYOGLOBIN 80567 [facility], 2 ANTENNA SPECIALIST ANTENNA SPECIALIST L[facility]I [facility] CO HOS CO HOS NATRIURET 78455 [facility], IC 2 ANTENNA SPECIALIST ANTENNA SPECIALIST PEPTIDE [place] [address] [facility], [facility], TROPONIN 2 ANTENNA SPECIALIST ANTENNA SPECIALIST QUANTITAT LEXI LEXI SATHISH CO HOS CO HOS CATH PLMT 35306 [facility] L HRT & [address] [place] [address] ARTS W/NJX & ANGIO IMG S&I BASIC [address] PANEL CALCIUM IONIZED BLOOD [address] PLATELET AUTOMATED COLLECTIO 95724 [facility] N VENOUS [address] [place] [address] BLOOD VENIPUNCT URE BLOOD [address] HEMATOCRI T INJECTION J2001 [address] [place]INE HCL INTRAVENO US INFUS 10 MG INJECTION J3010 [address] CITRATE 0.1 MG INJECTION J2250 [address] [place] HCL PER 1 MG ECG 67747 HELMS GUERRERO HELMS GUERRERO ROUTINE 2 ECG W/LEAST 12 LDS W/I&R POLYSOM 15164 HELMS GUERRERO HELMS GUERRERO 6/>YRS 2 SLEEP W/CPAP 4/> ADDL MARINA ATTND CV STRS 61894 [facility] TST 2 [facility] XERS&/OR HOSPITAL HOSPITAL RX CONT ECG TRCG ONLY CV STRS 05407 HELMS GUERRERO HELMS GUERRERO TST 2 XERS&/OR RX CONT ECG I&R ONLY NONINVASI 14248 [facility] VE 2 [facility] OXIMETRY OVERNIGHT MONITOR MYOCARDIA 73354 [facility] L SPECT 2 [facility]OSPITAL STUDIES POLYSOM 74247 [facility] 6/>YRS 2 [facility] W/CPAP 4/> [place] [address] [facility], THYROID 2 ANTENNA SPECIALIST ANTENNA SPECIALIST STIMULATI LEXI ELLIOTT NG CO HOS CO HOS HORMONE TSH XTRNL ECG 50703 HELMS GUERRERO HELMS GUERRERO 2 CONTINUOU S RHYTHM W/I&R UP TO 48 HRS LIPID 56310 [facility], PANEL 2 ANTENNA SPECIALIST ANTENNA SPECIALIST [facility] BLACKMONS [facility] HOS HUMDIFIR [...] EQUIPME DE[place] W/[place] [address] Synapse, IRON 2 ANTENNA SPECIALIST ANTENNA SPECIALIST [place] [address] Synapse, FREE 2 ANTENNA SPECIALIST ANTENNA SPECIALIST THYROXINE [facility] CO HOS 25 [address]309 Synapse, HYDROXY 2 ANTENNA SPECIALIST ANTENNA SPECIALIST INCLUDES [facility] FRACTIONS [facility]OS CO HOS IF PERFORMED CYANOCOBA 27980 Synapse, CAESAR 2 ANTENNA SPECIALIST ANTENNA SPECIALIST VITAMIN [facility] B-12 [facility] CO HOS THYROID 92124 Synapse, HORM 2 ANTENNA SPECIALIST ANTENNA SPECIALIST UPTK/THYR [facility] OID [facility] CO HOS HORMONE BINDING RATIO IRON 47587 Synapse, BINDING 2 ANTENNA SPECIALIST ANTENNA SPECIALIST CAPACITY [facility] HOS CONTINUOU E0601 BENJIE WALDROP S 2 HOME HOME POSITIVE MEDICAL MEDICAL AIRWAY EQUIPME EQUIPME PRESSURE DEVICE FILTER A7039 BENJIE WALDROP NON 2 HOME HOME DISPBL MEDICAL MEDICAL USED EQUIPME EQUIPME W/POS ARWAY PRESS DEVICE FILTER A7038 BENJIE WALDROP DISPBL 2 HOME HOME USED MEDICAL MEDICAL W/POS EQUIPME EQUIPME ARWAY PRESSURE DEVICE DUP-SCAN 39719 HELMS GUERRERO HELMS GUERRERO XTR VEINS 2 COMPLETE BILATERAL STUDY DUPLEX 54281 HELMS GUERRERO HELMS GUERRERO SCAN 2 EXTRACRAN IAL ART COMPL BI STUDY XTRNL ECG 37640 HELMS GUERRERO HELMS GUERRERO & 48 HR 2 RECORDING ECG 01821 EHLMS GUERRERO HELMS GUERRERO ROUTINE 2 ECG W/LEAST 12 LDS W/I&[place] [address] [facility] ABDOMEN & 2 JACK PELVIS RADIOLOGY W/O ASSOCIAT [facility] 46049 WORKS GEORGES WORKS GEORGES DISCHARGE 2 DAY MANAGEMEN T > 30 MIN ECG 92833 WORKS GEORGES WORKS GEORGES ROUTINE 2 ECG W/LEAST 12 LDS I&R ONLY RADIOLOGI 06376 [facility] C EXAM 2 [facility] CHEST 2 RADIOLOGY VIEWS ASSOCIAT FRONTAL&[place] [address] [facility] HEAD/BRAI 2 JACK N W/O RADIOLOGY CONTRAST ASSOCIAT MATERIAL NEBULIZER E0570 MT MED MT MED WITH 2 EQUIPMENT EQUIPMENT COMPRESSO INC INC R ADMN SET A7005 MT MED MT MED W/SM VOL 2 EQUIPMENT EQUIPMENT NONFILTR INC INC NEBULIZR NON-DISPB L THERAPEUT 47857 [employer], [employer], IC PX 1/> 2 ANTENNA SPECIALIST ANTENNA SPECIALIST AREAS [facility] EACH 15 CO HOS CO HOS MIN EXERCISES NONINVASI 14479 AHMED ADN AHMED ADN VE 2 EAR/PULSE OXIMETRY SINGLE DETER THERAPEUT 16594 [facility] ELLIOTT IC PX 1/> 2 CO CO AREAS [facility] EACH [address] [facility] C EXAM 2 [facility] CHEST 2 RADIOLOGY VIEWS ASSOCIAT FRONTAL&L ATERAL SEDIMENTA 07195 [facility] TION RATE 1 CO CO [facility] NON-AUTOM ATED RHEUMATOI 33984 [facility] E[facility] D FACTOR 1 CO CO QUANTITAT [facility] SATHISH ANTINUCLE 81253 [facility] E[facility] AR 1 CO CO ANTIBODIE [facility] S SARAH RADEX 26444 [facility] SPINE 1 EDGAR LUMBOSACR RADIOLOGY AL ASSOCIAT MINIMUM 4 VIEWS DRUG SCR 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 Y & Y & CHROMATOG BIODIAGNO BIODIAGNO RAPHIC; STICS STICS ANY NUMBER PT ENC URNLS DIP 56036 TAMAREN TAMAREN 1 Jun STICK/TAB LET RGNT NON-AUTO W/O MICRSCP CREATININ 14396 [facility] E BLOOD [address] [place] [address] [facility] ELLIOTT ABDOMEN & 1 CO MO PELVIS [facility] W/O CONTRST 1/> [place] [address] LXEI ELLIOTT UREA 1 CO MO NITROGEN [facility] QUANTITAT SATHISH RINGERS J7120 [facility] LACTATE 1 CO MO INFUSION [facility] UP TO [address] [place] [address] AMERIPATH JULIUS SURG 1 [place] INC CAR PATHOLOGY GROSS&CECY ROSCOPIC EXAM INJECTION J1100 [facility] [facility] 1 CO MO DEXAMETHO [facility] SONE SODIUM PHOSPHATE 1 MG INJECTION J2270 [facility] MORPHINE 1 [facility] SULFATE [facility] UP TO 10 MG UNCLASSIF J3490 [facility] IED DRUGS 1 [facility] INJECTION J1885 [facility] 1 [facility] KETOROLAC [facility] TROMETHAM INE PER 15 MG INJECTION J3010 [facility] FENTANYL 1 [facility] CITRATE [facility] 0.1 MG INJECTION J2405 [facility] 1 [facility] H[facility] PER 1 MG GONADOTRO 93036 [facility] [facility] PIN 1 CO MO CHORIONIC [facility] QUALITATI VE ANES 27826 [facility] [facility] LOWER 1 [facility] INTESTINE [facility] ENDOSCOPY DISTAL DUODENUM HEMORRHOI 05754 [facility] DECTOMY 1 MO HOSP LAR INTERNAL RUBBER BAND LIGATIONS COLSC FLX 96940 [facility] COLEMAN 1 CO CO W/REMOVAL HOSPITAL HOSPITAL LESION BY HOT BX FORCEPS NONINVASI 51123 [place] PATEL VE [address] [place] [address] ENOCH EAR/PULSE RURAL OXIMETRY HEALTH SINGLE DETER SPMTRY 49631 LEIX ELLIOTT W/VC 1 CO MO EXPIRATOR [facility]OSPITAL Y JULISSA W/WO MXML VOL VNTJ ECHO 13975 GUERRERO HELMS HELMS GUERRERO TTHRC R-T 1 2D CONSULTIN W/WOM-MOD G SRV E COMPL SPEC&COLR D ECHO 61068 L[facility]I ELLIOTT TTHRC R-T [address] [place] [address] W/WOM-MOD E COMPL SPEC&COLR D COLLECTIO 60684 L[place]I ELLIOTT N VENOUS 1 CO MO BLOOD [facility] VENIPUNCT URE LIPID 66238 [facility] ELLIOTT PANEL 1 CO [facility] COMPREHEN 93149 L[place]I ELLIOTT SIVE 1 CO CO METABOLIC [facility] PANEL LIPOPROTE 02059 L[place] ELLIOTT IN DIRECT 1 CO [facility] MEASUREME NT LDL CHOLESTER OL DUP-SCAN 66989 L[place] ELLIOTT XTR VEINS 1 CO CO [facility] BILATERAL STUDY HEMOGLOBI 60751 L[place] ELLIOTT N 1 CO [facility] [place] [address] L[place]I ELLIOTT THYROID 1 CO MO STIMULATI [facility] NG HORMONE TSH ECG 21132 GUERRERO HELMS HELMS GUERRERO ROUTINE 1 ECG CONSULTIN W/LEAST G SRV 12 LDS W/I&R Encounters Encounter Start End Date Code Location Performer Type Date [facility] [address] T OFFICE [address]36 [facility] 7 7 T VISIT ORTHOPAED 15 ICS PSC MINUTES [facility] [place] - 7 7 [facility] T VISIT ORTHOPAED 15 ICS PSC MINUTES OFFICE 87915 [facility] 7 T VISIT ORTHOPAED 15 ICS PSC MINUTES OFFICE 78133 [facility] 7 7 CULAR & T VISIT SLEEP 25 CONSU MINUTES [facility] [address] T OFFICE 31684 [facility] 7 7 PHYSICIAN T NEW 30 S GROUP MINUTES OFFICE 71592 GUERRERO GODINEZ 7 7 T VISIT CONSULTIN 25 G SRV MINUTES [facility]ITAL E[facility] - 7 7 [facility] INPATIENT [facility] EMMY - 7 7 [facility] OUTPATIEN COUNT INCLUDES THE [facility] [place] - 7 7 [facility] T OFFICE 86632 GUERRERO GODINEZ 7 7 T VISIT CONSULTIN 25 G SRV MINUTES OFFICE 70050 L[facility] ESCOBEDO OUTPATIEN 6 6 [facility] T VISIT URGENT 15 TREAT MINUTES OFFICE 49314 [facility] ESCOBEDO OUTPATIEN 6 6 [facility] T VISIT URGENT 25 TREAT MINUTES OFFICE 63351 [facility] ESCOBEDO OUTPATIEN 6 6 [facility] T VISIT URGENT 15 TREAT MINUTES OFFICE 34516 LAURA CHONG OUTPATIEN 6 6 MD EMEKA, T VISIT PSC 10 MINUTES HOSPITAL EMM[facility] - 6 6 [facility] 80136 LA[facility]A STEELE OUTPATIEN 6 6 MD EMEKA, T VISIT PSC 25 MINUTES [facility]OSPITAL E[facility] - 6 6 [facility] T OFFICE 66027 LAURA STEELE OUTPATIEN 6 6 MD E[place], T VISIT PSC 15 MINUTES HOSPITAL EMMY - 6 6 [facility] T OFFICE 92662 L[place]I GUZMÁNPATIEN 6 6 [facility] T VISIT URGENT 25 TREAT MINUTES OFFICE 07228 LAURA CHONG OUTPATIEN 6 6 MD E[place], T VISIT PSC 10 MINUTES OFFICE 49243 L[place]I GUZMÁNPATIEN 6 6 [facility] T VISIT URGENT 25 TREAT MINUTES OFFICE 92188 LAURA COY OUTPATIEN 6 6 MD EMEKA, T VISIT PSC 15 MINUTES OFFICE 60056 [facility] ESCOBEDO OUTPATIEN 6 6 [facility] T VISIT URGENT 25 TREAT MINUTES OFFICE 13608 LAURA TINY STEELE OUTPATIEN 6 6 MD EMEKA, T VISIT PSC 25 MINUTES OFFICE 61023 LAURA TINY CRI OUTPATIEN 5 5 MD EME[place], T NEW 45 PSC MINUTES OFFICE 25216 [facility] ESCOBEDO OUTPATIEN 5 5 [facility] T VISIT URGENT 25 TREAT MINUTES [facility]OS[facility] - 5 5 [facility] OUT[facility] T OFFICE 29529 [place] ESCOBEDO OUTPATIEN 5 5 [facility] T VISIT URGENT 15 TREAT MINUTES OFFICE 31449 [facility] ESCOBEDO OUTPATIEN 5 5 [facility] T VISIT URGENT 25 TREAT MINUTES OFFICE 74413 [facility] ESCOBEDO OUTPATIEN 5 5 [facility] T VISIT URGENT 25 TREAT MINUTES [facility] - 5 [facility] OUT[facility] T OFFICE 14676 [place] ESCOBEDO OUTPATIEN 5 5 [facility] T VISIT URGENT 25 TREAT MINUTES OFFICE 48430 [facility] OUTPAT[facility] 5 5 [facility] T NEW 30 MEDICAL MINUTES G [facility] - 5 5 [facility] OUT[facility] T OFFICE 44566 [place] ESCOBEDO OUTPATIEN 5 5 [facility] T VISIT URGENT 10 TREAT MINUTES OFFICE 98786 [facility] ESCOBEDO OUTPATIEN 5 5 [facility] T VISIT URGENT 25 TREAT MINUTES OFFICE 04366 [facility] ESCOBEDO OUTPATIEN 5 5 [facility] T VISIT URGENT 25 TREAT MINUTES HOSPITAL EMMY - 5 5 [facility] OUTPATIEN INC T OFFICE 06308 [place] ESCOBEDO OUTPATIEN 5 5 [facility] T VISIT URGENT 25 TREAT MINUTES HOSPITAL EMMY - 5 5 [facility] OUTPATIEN INC T EMERGENCY 13938 EMMY 5 5 [facility] T VISIT HIGH/URGE NT SEVERITY OFFICE 46676 [facility] ESCOBEDO OUTPATIEN 5 5 [facility] T VISIT URGENT 15 TREAT MINUTES OFFICE 55337 [facility] ESCOBEDO OUTPATIEN 5 5 [facility] T VISIT URGENT 25 TREAT MINUTES OFFICE 71108 [facility] ESCOBEDO OUTPATIEN 5 5 [facility] T VISIT URGENT 25 TREAT MINUTES OFFICE 20532 [facility] ESCOBEDO OUTPATIEN 5 5 [facility] T VISIT URGENT 25 TREAT MINUTES OFFICE 59483 [facility] ESCOBEDO OUTPATIEN 5 5 [facility] T VISIT URGENT 25 TREAT MINUTES OFFICE 89955 [facility] ESCOBEDO OUTPATIEN 5 5 [facility] T NEW 20 URGENT MINUTES TREAT EMERGENCY 56335 EMMY LUNA, 5 5 [facility] T VISIT P HIGH/URGE NT SEVERITY OFFICE 61899 MEANS BUTROS OUTPATIEN 5 5 ADULT JONNY T VISIT PRIMARY 15 CARE CLI MINUTES EMERGENCY 82499 [facility] DEPT 5 5 [facility] VISIT EMERGENCY HIGH SERVI SEVERITY& THREAT FUNCJ EMERGENCY 36405 [facility] 5 5 [facility] EMERGENCY T VISIT PHYS HIGH/URGE NT SEVERITY OFFICE 31641 MEANS BUTROS OUTPATIEN 5 5 ADULT JONNY T VISIT PRIMARY 25 CARE CLI MINUTES HOSPITAL [address] OUTPATIEN T OFFICE 50229 GUERRERO FOWLER [facility] 5 5 MD CAMPBELL T VISIT CONSULTIN 25 G SERV MINUTES OFFICE 99625 MEANS BUTROS OUTPATIEN 5 5 ADULT JONNY T VISIT PRIMARY 25 CARE CLI MINUTES OFFICE 65511 GUERRERO HELMS HELMS GUERRERO OUTPATIEN 5 5 T VISIT CONSULTIN 15 G SRV MINUTES [facility] 5 5 [facility] T OFFICE 77916 GUERRERO HELMS FOWLER OUTPATIEN 5 5 MD CAMPBELL T VISIT CONSULTIN 25 G SERV MINUTES [facility] - 5 5 [facility] T OFFICE 79707 MEANS BUTROS OUTPATIEN 5 5 ADULT JONNY T VISIT PRIMARY 25 CARE CLI MINUTES OFFICE 55422 GUERRERO HELMS HELMS GUERRERO OUTPATIEN 5 5 T VISIT CONSULTIN 25 G SRV MINUTES OFFICE 22000 [facility] BUTROS OUTPATIEN 4 4 ADULT JONNY T VISIT PRIMARY 25 CARE CLI MINUTES OFFICE 06964 MEANS BUTROS OUTPATIEN 4 4 ADULT JONNY T VISIT PRIMARY 15 CARE CLI MINUTES OFFICE 66723 WORKS GEORGES WORKS GEORGES OUTPATIEN 2 2 T VISIT 25 MINUTES [facility] - 2 2 ANTENNA SPECIALIST OUTPATIEN [facility] HOS OFFICE 82093 HELMS GUERRERO HELMS GUERRERO OUTPATIEN 2 2 T VISIT 25 MINUTES HOSPITAL [facility] - 2 2 ANTENNA SPECIALIST OUTPATIEN [place] OFFICE 64066 WORKS GEORGES WORKS GEORGES OUTPATIEN 2 2 T VISIT 25 MINUTES [facility]OSP[facility] - 2 2 ANTENNA SPECIALIST OUTPATIEN [place] [facility] HOS OFFICE 28657 KERN CAR KERN CAR OUTPATIEN 2 2 T VISIT 15 MINUTES [facility] - 2 2 ANTENNA SPECIALIST OUTPATI [facility] HOS EMERGENCY 32041 LINDA MCKEON DEPT 2 2 JIL JIL VISIT HIGH SEVERITY& THREAT [facility] 2 2 [facility] T OFFICE 99993 HELMS GUERRERO HELMS GUERRERO OUTPATIEN 2 2 T VISIT 25 MINUTES HOSPITAL [facility] - 2 2 [facility] 2 2 [facility] - 2 2 [facility]TENNA SPECIALIST [facility] 61295 HELMS GUERRERO HELMS GUERRERO OUTPATIEN 2 2 T VISIT 25 MINUTES OFFICE 48589 AHDAVID MCALLISTER AHMED ADElizabeth OUTPATIEN 2 2 T VISIT 15 MINUTES [facility] - 2 2 [facility] - 2 2 [facility] T OFFICE 48726 NETTIE MCALLISTER OUTPATIEN 2 2 T VISIT 25 MINUTES OFFICE 74768 [facility] 15 [facility]UTES HOSPITAL [place] - 1 1 [facility] T OFFICE 34429 BELÉN MELISSA OUTPATIEN 1 1 [facility] 30 MINUTES OFFICE 91872 [facility] PATEL OUTPATIEN 1 1 [facility] - 1 1 [facility] CO[facility] - 1 1 [facility] T OFFICE 26896 [facility] PATEL OUTPATIEN 1 1 [facility] 15 HEALTH MINUTES HOSPITAL [place] - 1 1 [facility] T OFFICE 31827 [facility] 1 1 CO HOS[facility] 60 MINUTES [facility] [place] - 1 1 CO [facility] T OFFICE 64785 GUERRERO HELMS HELMS GUERRERO [facility] 1 1 MD Kemi HOLDEN 45 CONSULTIN MINUTES G [facility] OFF[facility] [address] [facility] 8 8 , CHAUNCEY GAINES T NEW 20 MINUTES
--- OUTSIDE RECORDS SUMMARY | 2017-04-02 11:40 | External Medical Summary Rpt | CCD ---
Demographics Preferred Language Citizen Of [place] Marital Status Unknown Muslim Affiliation Unknown Race Unknown Ethnic Group Unknown Author Author , TRISTIAN LUBIN Address Unknown Phone Immunization No patient found.
--- OUTSIDE RECORDS SUMMARY | 2017-04-02 11:40 | External Medical Summary Rpt | CCD ---
Demographics Preferred Language Austrian Marital Status Unknown Caodaism Affiliation Unknown Race Unknown Ethnic Group Unknown Author Author , TRISTIAN LUBIN Address Unknown Phone Immunization No patient found.
--- OUTSIDE RECORDS SUMMARY | 2017-04-02 11:40 | External Medical Summary Rpt ---
Author Author TRISTIAN Menjivar, [employer] Address Unknown Phone Unavailable Results Urinalysis dipstick W Reflex Microscopic panel in Urine Observa Value Referen Units Interpr Notes Date tion ce etation Range Appeara CLEAR CLEAR No No No Nov 08 nce of informa informa informa 2017 Urine tion in tion in tion in 5:50 PM source source source data data data Bacteri 2+ O No No No Nov 08 a informa informa informa 2016 [Presen tion in tion in tion in 5:50 PM ce] in source source source Urine data data data sedimen t by Light microsc opy Bilirub NEGATIV NEG No No No Nov 08 in E informa informa informa 2017 [Presen tion in tion in tion in 5:50 PM ce] in source source source Urine data data data by Test strip Erythro NEGATIV NEG No No No Nov 08 cytes E informa informa informa 2017 [Presen tion in tion in tion in 5:50 PM ce] in source source source Urine data data data Color YELLOW YELLOW No No No Nov 08 of informa informa informa 2017 Urine tion in tion in tion in 5:50 PM source source source data data data Glucose NEG No No No Nov 08 [Mass/vol informati informati informati 2017 5:50 ume] in on in on in on in PM Urine by source source source Test data data data strip Ketones NEGATIV NEG mg/dL No No Nov 08 E informa informa 2017 [Presen tion in tion in 5:50 PM ce] in source source Urine data data by Automat ed test strip Mucus NEGATIV NEG No No No Nov 08 [Presen E informa informa informa 2017 ce] in tion in tion in tion in 5:50 PM Urine source source source sedimen data data data t by Light microsc opy Mucus 1+ OCC No No No Manny 7 [Presen informa informa informa 2017 ce] in tion in tion in tion in 5:50 PM Urine source source source sedimen data data data t by Light microsc opy Nitrite NEGATIV NEG No No No Nov 08 E informa informa informa 2016 [Presen tion in tion in tion in 5:50 PM ce] in source source source Urine data data data by Test strip pH of 5.0 - 8.5 No Normal No Nov 7 Urine informati informati 2017 5:50 on in on in PM source source data data Protein NEG mg/dL No No Nov 08 [Mass/vol informati informati 2017 5:50 ume] in on in on in PM Urine by source source Automated data data test strip Erythro OCC 0 rbc/hpf No No Nov 08 cytes informa informa 2016 [Presen tion in tion in 5:50 PM ce] in source source Urine data data sedimen t by Light microsc opy Specific 1.005 - No Normal No Nov 08 gravity 1.030 informati informati 2017 5:50 of Urine on in on in PM source source data data Epithel 5-10 0 - 5 #/hpf No No Nov 08 ial informa informa 2017 cells.s tion in tion in 5:50 PM quamous source source data data [Presen ce] in Urine sedimen t by Microsc opy high power field Urobili 0.2 NEG E.U./dL No No Nov 7 nogen informa informa 2016 [Presen tion in tion in 5:50 PM ce] in source source Urine data data by Test strip Leukocyte O wbc/hpf No No Nov 7 s informati informati 2017 5:50 [#/volume on in on in PM ] in source source Urine data data Urinalysis dipstick W Reflex Microscopic panel in Urine Observa Value Referen Units Interpr Notes Date tion ce etation Range Appeara CLEAR CLEAR No No No Nov 08 nce of informa informa informa 2017 Urine tion in tion in tion in 5:50 PM source source source data data data Bilirub NEGATIV NEG No No No Manny 7 in E informa informa informa 2017 [Presen tion in tion in tion in 5:50 PM ce] in source source source Urine data data data by Test strip Erythro NEGATIV NEG No No No Manny 7 cytes E informa informa informa 2017 [Presen tion in tion in tion in 5:50 PM ce] in source source source Urine data data data Color YELLOW YELLOW No No No Manny 7 of informa informa informa 2017 Urine tion in tion in tion in 5:50 PM source source source data data data Glucose NEG No No No Manny 7 [Mass/vol informati informati informati 2017 5:50 ume] in on in on in on in PM Urine by source source source Test data data data strip Ketones NEGATIV NEG mg/dL No No Manny 7 E informa informa 2016 [Presen tion in tion in 5:50 PM ce] in source source Urine data data by Automat ed test strip Mucus NEGATIV NEG No No No Manny 7 [Presen E informa informa informa 2016 ce] in tion in tion in tion in 5:50 PM Urine source source source sedimen data data data t by Light microsc opy Nitrite NEGATIV NEG No No No Manny 7 E informa informa informa 2016 [Presen tion in tion in tion in 5:50 PM ce] in source source source Urine data data data by Test strip pH of 5.0 - 8.5 No Normal No Manny 7 Urine informati informati 2017 5:50 on in on in PM source source data data Protein NEG mg/dL No No Manny 7 [Mass/vol informati informati 2017 5:50 ume] in on in on in PM Urine by source source Automated data data test strip Specific 1.005 - No Normal No Manny 7 gravity 1.030 informati informati 2017 5:50 of Urine on in on in PM source source data data Urobili 0.2 NEG E.U./dL No No Manny 7 nogen informa informa 2017 [Presen tion in tion in 5:50 PM ce] in source source Urine data data by Test strip
[2017-04-02] MEDS ORDERED: AMOXICOT500 MG PO (12:03)
--- NOTE | 2017-04-02 13:12 | Operative Note ---
Upper GI Endoscopy Procedure date: 04/02/17 Date of : 56 Procedure:Upper GI Endoscopy Esophagogastroduodenoscopy with removal of foreign body (meat impaction) and TTS balloon dilation Indications: Mrs. Torres is a 57-year-old female who was eating chicken and developed an esophageal meat impaction and cannot tolerate liquids. This occurred yesterday and she had not been able to regurgitate throughout the evening and night last night. She came to the emergency department this morning. She has had some heartburn and reflux. She has developed some dysphagia to breads and meats recently. She did have an esophageal meat impaction several years ago requiring an endoscopy. She reports no abdominal pain, indigestion, reflux or dyspepsia. She reports no weight loss. Performing Provider: Pedro Pablo Rabago MD Referring Provider: Marily ALLAN Sedation: MAC sedation Procedure: Prior to the procedure, a history and physical exam was performed, and patients medications and allergies were reviewed. The risks and benefits of the procedure and the sedation options and risks were discussed with the patient. All questions were answered and informed consent was obtained. The patient was brought to the procedure room. Patient identification and proposed procedure were verified by the physician and the nurse. The patient was placed in a left lateral decubitus position and the scope was passed under direct vision. Throughout the procedure, the patient's blood pressure, pulse, and oxygen saturations were monitored continuously. The endoscope was introduced through the mouth, and advanced to the second part of duodenum. The upper GI endoscopy was accomplished without difficulty. The patient tolerated the procedure well. Findings: The scope was passed directly into the upper esophagus where there was a meat impaction distally. This was traversed and the meat was eventually pushed into the stomach. The scope was then advanced to the third portion of the duodenum. The post bulbar duodenum and duodenal bulb were normal with normal mucosa and conniventes. The scope was withdrawn through a normal duodenal bulb and pylorus into the stomach. There was moderate bile reflex with linear erythema of the antrum and body consistent with mild linear reactive gastritis. The remainder of the antrum, body and fundus of the stomach were grossly normal. Upon retroflexion there was a 2 cm hiatal hernia. The endoscope was then withdrawn into the esophagus. There was a distal Schatzki's ring. There was grade B reflux esophagitis. The Schatzki's ring was dilated to 60 Hebrew/20 mm with a TTS hydrostatic balloon. There was also some proximal esophageal web that was dilated to 18 mm close to the cricopharyngeus. Immediate complications: None EBL (ml): 0 Impression: 1. Esophageal meat impaction status post clearance with endoscope 2. Schatzki's ring dilated to 20 mm 3. Grade B reflux esophagitis with small 1-2 cm hiatal hernia 4. 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 Bile reflux with linear reactive gastritis Recommendations: I will place the patient on omeprazole for 3 months for healing. The patient should have marked clinical improvement of her dysphagia. at 1311
[2017-04-02 14:36] VITALS: BP 115/67
== END 2017-04-02 14:13 | disposition home or self-care (01) ==
LOC: ER 10:38 → SDC 11:59
PROVIDERS: Emergency Medicine; Internal Medicine Gastroenterology
PROC: 0DC58ZZ Extirpation of Matter from Esophagus, Via Natural or Artificial Opening Endoscopic (ICD-10-PCS; 2017-04-02)
PROC: 0D758ZZ Dilation of Esophagus, Via Natural or Artificial Opening Endoscopic (ICD-10-PCS; principal; 2017-04-02 13:00)
DX: T18.0XXA Foreign body in mouth, initial encounter (principal); K22.2 Esophageal obstruction; K44.9 Diaphragmatic hernia without obstruction or gangrene
CPT/HCPCS: C1726; J2405